=== PATIENT | female | born 1955 | race Caucasian/White ===

== ENCOUNTER → 2016-12-01 | Outpatient (CLI) | payer OTHER | LOC: OD 09:16 | PROVIDERS: ATTEND Physician Assistant | DX: R05 Cough (principal) | CPT/HCPCS: 71020 ==

== ENCOUNTER 2016-12-13 13:33 | Inpatient (IN) | payer OTHER, MEDICARE ==
[2016-12-13] MEDS ORDERED: ASPIRIN 81 MG TABLET, CHEWABLE PO ONE (13:39)
--- NOTE | 2016-12-13 13:41 | ER Document Report ---
ED Medical Screen (RME) - General Stated Complaint: CHEST PAIN Mode of Arrival: Wheelchair Information source: Patient Notes: Patient presents to emergency department with complaints of chest pain nausea and diaphoresis. Patient reports family history of cardiac disease. She will denies cardiac history herself. Reports approximately one hour ago she started having left-sided chest pain now it's a dull ache to the center of her chest. I have greeted and performed a rapid initial assessment of this patient. A comprehensive ED assessment and evaluation of the patient, analysis of test results and completion of the medical decision making process will be conducted by additional ED providers. TRAVEL OUTSIDE OF THE [place] IN LAST 30 DAYS: No - Related Data Allergies/Adverse Reactions: codeine [Codeine] Allergy (Verified 06/06/14 15:11) lower BP Past Medical History - Past Medical History Cardiac Medical History: Reports: Hx Hypercholesterolemia Denies: Hx Heart Attack, Hx Hypertension Pulmonary Medical History: Reports: Hx COPD Denies: Hx Asthma, Hx Tuberculosis Neurological Medical History: Denies: Hx Cerebrovascular Accident, Hx Seizures Endocrine Medical History: Reports: Hx Diabetes Mellitus Type 1 - borderline, Hx Diabetes Mellitus Type 2 GI Medical History: Denies: Hx Hepatitis, Hx Hiatal Hernia, Hx Ulcer Infectious Medical History: Denies: Hx Hepatitis Past Surgical History: Reports: Hx Abdominal Surgery - gastric bypass, Hx Appendectomy, Hx Cholecystectomy, Hx Hysterectomy, Hx Orthopedic Surgery - bilat knee; back; neck, Hx Tonsillectomy. Denies: Hx Mastectomy, Hx Open Heart Surgery, Hx Pacemaker - Immunizations Hx Diphtheria, Pertussis, Tetanus Vaccination: No
--- NOTE | 2016-12-13 14:10 | ER Document Report ---
ED Cardiac - General Mode of Arrival: Wheelchair Information source: Patient TRAVEL OUTSIDE OF THE [place] IN LAST 30 DAYS: No - HPI Patient complains to provider of: Chest pain Associated symptoms: Other - See above <EDMUND LEAHY - Last Filed: 12/13/16 14:03> <JAYE SHEPPARD - Last Filed: 12/13/16 15:23> - General Chief Complaint: Chest Pain > 30 Stated Complaint: CHEST PAIN Notes: Patient is a 61 year old female, with a past medical history including diabetes , who presents to the emergency department complaining of chest pain onset at 1200 today. 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 Patient reports the pain and nausea have subsided some but are still present. Patient reports this type of episode has happened before but without the pain and that they would go away without intervention. Patient states that her brother and father both of heart attacks at age 45 and 64 respectively. Patient reports she received a chemical stress test about 4 years ago with normal results. (EDMUND LEAHY) - Related Data Allergies/Adverse Reactions: aspirin Allergy (Verified 12/13/16 14:03) codeine [Codeine] Allergy (Verified 12/13/16 14:03) lower BP Past Medical History - General Information source: Patient - Social History Smoking Status: Former Smoker - 30 years Chew tobacco use (# tins/day): No Frequency of alcohol use: None Drug Abuse: None Family History: Reviewed & Not Pertinent, CAD, Other - Heart attacks Patient has suicidal ideation: No Patient has homicidal ideation: No - Past Medical History Cardiac Medical History: Reports: Hx Hypercholesterolemia Pulmonary Medical History: Reports: Hx COPD Endocrine Medical History: Reports: Hx Diabetes Mellitus Type 2 Past Surgical History: Reports: Hx Abdominal Surgery - gastric bypass, Hx Appendectomy, Hx Cholecystectomy, Hx Hysterectomy, Hx Orthopedic Surgery - bilat knee; back; neck, Hx Tonsillectomy - Immunizations Hx Diphtheria, Pertussis, Tetanus Vaccination: No Hx Pneumococcal Vaccination: 08/06/13 <EDMUND LEAHY - Last Filed: 12/13/16 14:03> Review of Systems - Review of Systems Constitutional: See HPI, Diaphoresis EENT: No symptoms reported Cardiovascular: See HPI, Chest pain Respiratory: No symptoms reported Gastrointestinal: See HPI, Nausea Genitourinary: No symptoms reported Female Genitourinary: No symptoms reported Musculoskeletal: No symptoms reported Skin: No symptoms reported Hematologic/Lymphatic: No symptoms reported Neurological/Psychological: No symptoms reported -: Yes All other systems reviewed and negative <EDMUND LEAHY - Last Filed: 12/13/16 14:03> Physical Exam - Vital signs Interpretation: Normal - General General appearance: Appears well, Alert - HEENT Head: Normocephalic, Atraumatic - Respiratory Respiratory status: No respiratory distress Chest status: Tender - Anterior chest wall tender to palpation, right side more than left Breath sounds: Rhonchi - mild, Other - Coarse breath sounds with cough Chest palpation: Normal - Cardiovascular Rhythm: Regular Heart sounds: Normal auscultation Murmur: No - Abdominal Inspection: Obese Distension: No distension Bowel sounds: Normal Tenderness: Nontender Organomegaly: No organomegaly - Back Back: Normal, Nontender - Extremities General upper extremity: Normal inspection General lower extremity: Normal inspection - Neurological Neuro grossly intact: Yes Cognition: Normal Orientation: AAOx4 [place] Coma Scale Eye Opening: Spontaneous Deborah Coma Scale Verbal: Oriented [place] Coma Scale Motor: Obeys Commands [place] Coma Scale Total: 15 Speech: Normal - Psychological Associated symptoms: Normal affect, Normal mood - Skin Skin Temperature: Warm Skin Moisture: Dry Skin Color: Normal <EDMUND LEAHY - Last Filed: 12/13/16 14:03> Course - Laboratory Result Diagrams: 12/13/16 14:18 12/13/16 14:18 - Diagnostic Test Radiology reviewed: Image reviewed, Reports reviewed - Chest x-ray does not show any acute process. - EKG Interpretation by Me EKG shows normal: Sinus rhythm, [place], Intervals, QRS Complexes, ST-T Waves Rate: Normal - 58 Rhythm: NSR - Consults Dr. Nagel Time consulted: 15:20 Consulted provider: will see as inpatient - Dr. Nagel requests IMCU admit, a CTA chest to be done, and consult Dr. Little. <JAYE SHEPPARD - Last Filed: 12/13/16 15:23> - Vital Signs Vital signs: Temp Pulse Resp BP Pulse Ox 17 143/89 H 98 12/13/16 14:01 12/13/16 14:01 12/13/16 14:01 (JAYE SHEPPARD) Discharge <EDMUND LEAHY - Last Filed: 12/13/16 14:03> - Discharge Admitting Provider: [facility] Admitted: I[facility] <JAYE SHEPPARD - Last Filed: 12/13/16 15:23> - Discharge Clinical Impression: Chest pain Qualifiers: Chest pain type: unspecified Qualified Code(s): R07.9 - Chest pain, unspecified Scribe Attestation: 12/13/16 15:23 I personally performed the services described in the documentation, reviewed and edited the documentation which was dictated to the scribe in my presence, and it accurately records my words and actions. (JAYE SHEPPARD) Scribe Documentation - Scribe Written by Ariel:: ariel Blair, 12/13/16, 1412 acting as scribe for :: Louisa <EDMUND LEAHY - Last Filed: 12/13/16 14:03>
[2016-12-13 14:28] LABS: ABSOLUTE EOSINOPHILS # (AUTO) 0.1 10^3/uL (0.0-0.6); ABSOLUTE LYMPHOCYTES (AUTO) 1.9 10^3/uL (0.5-4.7); ABSOLUTE MONOCYTES (AUTO) 0.4 10^3/uL (0.1-1.4); ABSOLUTE NEUT (AUTO) 3.9 10^3/uL (1.7-8.2); BASOPHILS % (AUTO) 0.6 % (0-2); EOSINOPHILS % (AUTO) 1.7 % (0-6); HEMATOCRIT 42.2 % (36.0-47.0); HEMOGLOBIN 14.1 g/dL (12.0-15.5); HGB HCT DIFFERENCE 0.1; MEAN CORPUSCULAR HEMOGLOBIN 30.8 pg (27.0-33.4); MEAN CORPUSCULAR HGB CONC 33.5 g/dL (32.0-36.0); MEAN CORPUSCULAR VOLUME 92 fl (80-97); MONOCYTES % (AUTO) 6.3 % (3-13); RED BLOOD COUNT 4.59 10^6/uL (3.72-5.28); RED CELL DISTRIBUTION WIDTH 13.3 % (11.5-14.0); SEGMENTED NEUTROPHILS % (AUTO) 61.4 % (42-78); WHITE BLOOD COUNT 6.4 10^3/uL (4.0-10.5)
[2016-12-13 14:52] LABS: ALANINE AMINOTRANSFERASE 39 U/L (9-52); ALBUMIN 4.2 g/dL (3.5-5.0); ALKALINE PHOSPHATASE 58 U/L (38-126); ANION GAP 10 (5-19); ASPARTATE AMINO TRANSFERASE 21 U/L (14-36); BILIRUBIN,TOTAL 0.5 mg/dL (0.2-1.3); BLOOD UREA NITROGEN 11 mg/dL (7-20); CALCIUM 9.6 mg/dL (8.4-10.2); CARBON DIOXIDE 25 mmol/L (22-30); CHLORIDE 106 mmol/L (98-107); CREATINE KINASE 38 U/L (30-135); CREATININE RESULT 0.73 mg/dL (0.52-1.25); GLUCOSE 78 mg/dL (75-110); POTASSIUM 4.3 mmol/L (3.6-5.0); SODIUM 140.8 mmol/L (137-145); TOTAL PROTEIN 6.4 g/dL (6.3-8.2)
[2016-12-13 15:04] LABS: CREATINE KINASE MB 0.28 ng/mL (<4.55)
[2016-12-13 15:06] LABS: TROPONIN I < 0.012 ng/mL
[2016-12-13 15:29] LABS: APPEARANCE,URINE CLEAR; BILIRUBIN,URINE NEGATIVE (NEGATIVE); GLUCOSE, URINE NEGATIVE (NEGATIVE); KETONES,URINE NEGATIVE (NEGATIVE); LEUKOCYTE ESTERASE,URINE NEGATIVE (NEGATIVE); NITRITE,URINE NEGATIVE (NEGATIVE); PROTEIN,URINE NEGATIVE (NEGATIVE); URINE SPECIFIC GRAVITY 1.012; UROBILINOGEN,URINE NEGATIVE mg/dL (<2.0)
[2016-12-13] MEDS ORDERED: IPRATROPIUM/ALBUTEROL 0.5-2.5 MG/3 ML AMPUL NEB PRN (15:56)
[2016-12-13] MEDS ORDERED: TRAZODONE HCL 50 MG TABLET PO PRN (15:59)
[2016-12-13] MEDS ORDERED: BENZONATATE 100 MG CAPSULE PO PRN (15:59)
[2016-12-13] MEDS ORDERED: INSULIN LISPRO 100 UNIT/ML 3 ML VIAL SUBCUT PRN (16:00)
[2016-12-13] MEDS ORDERED: GLUCAGON,HUMAN RECOMB 1 MG INJ IM PRN (16:00)
[2016-12-13] MEDS ORDERED: DEXTROSE 40% GEL 15 GM TUBE PO PRN ×2 (16:00)
[2016-12-13] MEDS ORDERED: DEXTROSE 50%-WATER 25 GM/50 ML DISP.SYRIN IV PRN ×2 (16:00)
[2016-12-13] MEDS: LANSOPRAZOLE 15 MG TAB.RAP.DR PO SCH (16:52)
[2016-12-13] MEDS: METFORMIN HCL 500 MG TABLET PO SCH (16:52)
[2016-12-13] MEDS: ACETAMINOPHEN 325 MG TABLET PO PRN (16:54)
--- NOTE | 2016-12-13 17:47 | PDOC H&P ---
History of Present Illness Admission Date/PCP: 12/13/16 15:56 MIKE LO MD Patient complains of: chest pain History of Present Illness: MARINA ROSARIO is a 61 year old female This is a 61-year-old female currently working in the [employer] and a complaint of the chest pain and feeling diaphoretic and that patient have a family history of early heart problems and came to the emergency department with initial workup is all negative including the CT angiograms all negative. Patient's currently denied any chest pain denied any shortness of the breath no nausea no vomiting and no fever. Patient's also significant history of the patient anxiety possible patient's may have a panic disorder to and the panic attack this morning. Will admit the patient and the hospital further acute coronary syndrome evaluations and to rule out other pathology and a cardiology consult Past Medical History Cardiac Medical History: Reports: Hyperlipidema Denies: Myocardial Infarction, Hypertension Pulmonary Medical History: Reports: Chronic Obstructive Pulmonary Disease (COPD) Denies: Asthma, Tuberculosis Neurological Medical History: Denies: Seizures Endocrine Medical History: Reports: Diabetes Mellitus Type 1 - borderline, Diabetes Mellitus Type 2 GI Medical History: Denies: Hepatitis, Hiatal Hernia Psychiatric Medical History: Reports: Depression, General Anxiety Disorder Hematology: Reports: Anemia Denies: Sickle Cell Disease Past Surgical History Past Surgical History: Reports: Appendectomy, Cholecystectomy, Hysterectomy, Orthopedic Surgery - bilat knee; back; neck, Tonsillectomy Denies: Amputation, Mastectomy, Pacemaker Social History Smoking Status: Former Smoker - 30 years Frequency of Alcohol Use: Rare Hx Recreational Drug Use: No Hx Prescription Drug Abuse: No Family History Family History: Reviewed & Not Pertinent, CAD, Other - Heart attacks Parental Family History Reviewed: Yes Children Family History Reviewed: Yes Sibling(s) Family History Reviewed.: Yes Medication/Allergy Home Medications: Simvastatin [Zocor 10 mg Tablet] 20 mg PO QHS 06/08/12 Tramadol HCl [Ultram 50 mg Tablet] 50 mg PO BID 06/08/12 Fluticasone/Salmeterol [Advair 250-50 Diskus 14 Dose/Diskus] 1 inh IH Q12H 08/03 Omeprazole 40 mg PO DAILY 08/03/13 Baclofen [Baclofen 20 Mg Tablet] 20 mg PO TID 12/13/16 Benzonatate 100 mg PO TID PRN 12/13/16 Buspirone HCl [Buspar 15 mg Tablet] 0.5 tab PO DAILY 12/13/16 Ergocalciferol (Vitamin D2) [Vitamin D2] 50,000 unit PO FR@1000 PRN 12/13/16 Famotidine 20 mg PO BID 12/13/16 Fluticasone Propionate [Flonase Allergy Relief] 9.9 ml NS DAILY 12/13/16 Ketoconazole 15 gm TP DAILY 12/13/16 Levocetirizine Dihydrochloride [Xyzal 5 mg Tablet] 5 mg PO DAILY 12/13/16 Metformin HCl 500 mg PO BID 12/13/16 Trazodone HCl 50 mg PO BID PRN 12/13/16 Allergies/Adverse Reactions: aspirin Allergy (Verified 12/13/16 14:03) codeine [Codeine] Allergy (Verified 12/13/16 14:03) lower BP Review of Systems Constitutional: ABSENT: chills, fever(s), headache(s), weight gain, weight loss Eyes: ABSENT: visual disturbances Ears: ABSENT: hearing changes Cardiovascular: PRESENT: chest pain. ABSENT: dyspnea on exertion, edema, orthropnea, palpitations Respiratory: ABSENT: cough, hemoptysis Gastrointestinal: ABSENT: abdominal pain, constipation, diarrhea, hematemesis, hematochezia, nausea, vomiting Genitourinary: ABSENT: dysuria, hematuria Musculoskeletal: ABSENT: joint swelling Integumentary: ABSENT: rash, wounds Neurological: ABSENT: abnormal gait, abnormal speech, confusion, dizziness, focal weakness, syncope Psychiatric: ABSENT: anxiety, depression, homidical ideation, suicidal ideation Endocrine: ABSENT: cold intolerance, heat intolerance, menstrual abnormalities, polydipsia, polyuria Hematologic/Lymphatic: ABSENT: easy bleeding, easy bruising, lymphadenopathy Physical Exam Vital Signs: Temp Pulse Resp BP Pulse Ox 17 143/89 H 98 12/13/16 14:01 12/13/16 14:01 12/13/16 14:01 General appearance: PRESENT: no acute distress, well-developed, well-nourished Head exam: PRESENT: atraumatic, normocephalic Eye exam: PRESENT: conjunctiva pink, EOMI, PERRLA. ABSENT: scleral icterus Ear exam: PRESENT: normal external ear exam Mouth exam: PRESENT: moist, tongue midline Neck exam: PRESENT: full ROM. ABSENT: carotid bruit, JVD, lymphadenopathy, thyromegaly Respiratory exam: PRESENT: clear to auscultation manny Cardiovascular exam: PRESENT: RRR. ABSENT: diastolic murmur, rubs, systolic murmur Pulses: PRESENT: normal dorsalis pedis pul, +2 pedal pulses bilateral Vascular exam: PRESENT: normal capillary refill GI/Abdominal exam: PRESENT: normal bowel sounds, soft. ABSENT: distended, guarding, mass, organolmegaly, rebound, tenderness Rectal exam: PRESENT: deferred Neurological exam: PRESENT: alert, awake, oriented to person, oriented to place , oriented to time, oriented to situation, CN II-XII grossly intact. ABSENT: motor sensory deficit Psychiatric exam: PRESENT: appropriate affect, normal mood. ABSENT: homicidal ideation, suicidal ideation Skin exam: PRESENT: dry, intact, warm. ABSENT: cyanosis, rash Results Impressions: Chest X-Ray 12/13/16 13:39 IMPRESSION: NO ACUTE RADIOGRAPHIC FINDING IN THE CHEST. Chest/Abdomen CTA 12/13/16 15:21 IMPRESSION: No evidence of pulmonary embolus or other acute abnormality. Assessment & Plan - Diagnosis (1) Chest pain Qualifiers: Chest pain type: unspecified Qualified Code(s): R07.9 - Chest pain, unspecified Is this a current diagnosis for this admission?: YesPlan: Patient's initial EKG and cardiac enzyme is negative patient's CT angiogram is also negative we will get the cardiology consult (2) Type 2 diabetes mellitus Qualifiers: Diabetes mellitus complication status: with unspecified complications Is this a current diagnosis for this admission?: YesPlan: From a sliding scale some currently hold the metformin (3) Hypertension Qualifiers: Hypertension type: essential hypertension Qualified Code(s): I10 - Essential (primary) hypertension Is this a current diagnosis for this admission?: YesPlan: Continues the current medications (4) Hyperlipemia Qualifiers: Hyperlipidemia type: unspecified Qualified Code(s): E78.5 - Hyperlipidemia, unspecified Is this a current diagnosis for this admission?: YesPlan: Continues current medications (5) Depression Qualifiers: Depression Type: major depressive disorder Is this a current diagnosis for this admission?: YesPlan: Patient's currently see a psychiatrist (6) Anxiety Is this a current diagnosis for this admission?: YesPlan: Possible panic attack - Time Time Spent: 30 to 50 Minutes Medications reviewed and adjusted accordingly: Yes Anticipated discharge: Home, Other Within: Other - Inpatient Certification Medical Necessity: Need Close Monitoring Due to Risk of Patient Decompensation Post Hospital Care: D/C Invertebrate Paleontologist Documentation - Plan Summary Plan Summary: Rule out acute coronary syndrome consult the cardiology and continues monitor the patient's
--- NOTE | 2016-12-13 17:55 | PDOC CONSULTATION ---
Consultation Consult Date: 12/13/16 Attending physician:: MIKE LO Consult reason:: Chest pain History of Present Illness Admission Date/PCP: 12/13/16 15:56 MIKE LO MD Patient complains of: Chest pain History of Present Illness: This is a 61-year-old female currently working in the [employer] and a complaint of the chest pain and feeling diaphoretic and that patient have a strong family history of premature CAD and came to the emergency department with initial workup is all negative including the CT angiograms all negative. Patient's currently denied any chest pain denied any shortness of the breath no nausea no vomiting and no fever. Patient's also significant history of the patient anxiety possible patient's may have a panic disorder to and the panic attack this morning. Patient claims a stress test performed about 4 or 5 years ago which were negative. Patient also describes problems with insomnia, daytime fatigue and sleepiness. Patient did have a sleep study about 8 years ago which was negative. Patient currently suffers from insomnia. Past Medical History Cardiac Medical History: Reports: Hyperlipidema Denies: Myocardial Infarction, Hypertension Pulmonary Medical History: Reports: Chronic Obstructive Pulmonary Disease (COPD) Denies: Asthma, Tuberculosis Neurological Medical History: Denies: Seizures Endocrine Medical History: Reports: Diabetes Mellitus Type 1 - borderline, Diabetes Mellitus Type 2 GI Medical History: Denies: Hepatitis, Hiatal Hernia Psychiatric Medical History: Reports: Depression, General Anxiety Disorder Hematology: Reports: Anemia Denies: Sickle Cell Disease Past Surgical History Past Surgical History: Reports: Appendectomy, Cholecystectomy, Hysterectomy, Orthopedic Surgery - bilat knee; back; neck, Tonsillectomy Denies: Amputation, Mastectomy, Pacemaker Social History Information Source: Patient Smoking Status: Former Smoker - 30 years Frequency of Alcohol Use: Rare Hx Recreational Drug Use: No Hx Prescription Drug Abuse: No - Advance Directive Resuscitation Status: Full Code Surrogate healthcare decision maker:: Patient's Family History Family History: Reviewed & Not Pertinent, CAD, Other - Heart attacks Parental Family History Reviewed: Yes Children Family History Reviewed: Yes Sibling(s) Family History Reviewed.: Yes - Positive for family history of premature CAD Medication/Allergy Home Medications: Simvastatin [Zocor 10 mg Tablet] 20 mg PO QHS 06/08/12 Tramadol HCl [Ultram 50 mg Tablet] 50 mg PO BID 06/08/12 Fluticasone/Salmeterol [Advair 250-50 Diskus 14 Dose/Diskus] 1 inh IH Q12H 08/03 Omeprazole 40 mg PO DAILY 08/03/13 Baclofen [Baclofen 20 Mg Tablet] 20 mg PO TID 12/13/16 Benzonatate 100 mg PO TID PRN 12/13/16 Buspirone HCl [Buspar 15 mg Tablet] 0.5 tab PO DAILY 12/13/16 Ergocalciferol (Vitamin D2) [Vitamin D2] 50,000 unit PO FR@1000 PRN 12/13/16 Famotidine 20 mg PO BID 12/13/16 Fluticasone Propionate [Flonase Allergy Relief] 9.9 ml NS DAILY 12/13/16 Ketoconazole 15 gm TP DAILY 12/13/16 Levocetirizine Dihydrochloride [Xyzal 5 mg Tablet] 5 mg PO DAILY 12/13/16 Metformin HCl 500 mg PO BID 12/13/16 Trazodone HCl 50 mg PO BID PRN 12/13/16 Allergies/Adverse Reactions: aspirin Allergy (Verified 12/13/16 14:03) codeine [Codeine] Allergy (Verified 12/13/16 14:03) lower BP Review of Systems Review of Systems: Please see history of present illness and past medical history as wall. Constitutional: No fever or chills reported. Head : No recent chronic headaches, recent head injury. Eyes: No recent eye pain, diplopia, redness, discharge, acute visual changes. Ears: No recent chronic ear pain, acute hearing loss, ear discharge. Oral cavity: No recent ulcerations, bleeding, oral cavity discomfort. Neck: No recent acute neck pain reported. Hematologic: No recent easy bruising or bleeding or hematologic malignancy reported. Lymphatic: No recent lymphatic malignancy, chronic lymphadenopathy reported yet Cardiovascular system review: See history of present illness. Respiratory system review: No recent chronic cough, hemoptysis, blood clots in the lungs reported. Mild Shortness of breath on exertion Gastrointestinal system review: Negative for any recent acute or chronic abdominal pain, hematemesis, melena, recent change in bowel habits. Genitourinary system review: No recent acute or chronic hematuria, flank pain, UTI etc. reported. Skin system review: Negative for any recent abnormal bruising, no rash, no pruritus reported. Neurologic: No prior history of strokes, mini strokes, seizure disorder. Psychologic: No history of major psychosis or major depression reported. Patient has history of minor depression, anxiety disorder. Musculoskeletal: Minor aches and pains reported. No acute joint swelling reported. Endocrine: No recent polyuria, polydipsia, recent heat or cold intolerance. Physical Exam Vital Signs: Temp Pulse Resp BP Pulse Ox 17 143/89 H 98 12/13/16 14:01 12/13/16 14:01 12/13/16 14:01 Exam: GENERAL: well-nourished and in no acute distress. Alert and oriented x3 HEAD: Atraumatic, normocephalic. EYES: Pupils equal round and reactive to light, extraocular movements intact, sclera anicteric, conjunctiva are normal. ENT: TMs normal, nares patent, oropharynx clear without exudates. Moist mucous membranes. No oral ulcerations or bleeding gums noted NECK: supple without lymphadenopathy. Trachea is central. No cervical or axillary lymphadenopathy noted. Carotids are 2+, JVD WNL LUNGS: Respiration seems nonlabored, no significant accessory muscle action noted. Breath sounds clear to auscultation bilaterally and equal noted. No wheezes rales or rhonchi noted. No significant dullness noted on percussion. CHEST: Palpation of the chest wall shows mild bilateral chest wall tenderness. No other significant abnormalities noted. 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 ABDOMEN: Soft, no significant tenderness appreciated, normoactive bowel sounds. No guarding, no rebound. No rigidity noted . No masses appreciated. EXTREMITIES: Pedal pulses are 1-2+, no calf tenderness noted. No clubbing or cyanosis.trace to 1+ pedal edema noted NEUROLOGICAL: Focused neurological exam showed no significant neurologic deficit. Normal speech, no focal weakness appreciated. PSYCH: Normal mood, normal affect. Judgment and insight within normal limits. SKIN: No significant ecchymosis, rash, ulcerations or signs of pruritus noted. MUSCULOSKELETAL EXAM: No significant joint swelling noted. Results EKG Comments: Sinus rhythm, no acute ST-T wave changes noted Impressions: Chest X-Ray 12/13/16 13:39 IMPRESSION: NO ACUTE RADIOGRAPHIC FINDING IN THE CHEST. Chest/Abdomen CTA 12/13/16 15:21 IMPRESSION: No evidence of pulmonary embolus or other acute abnormality. Assessment & Plan - Diagnosis (1) Chest pain Qualifiers: Chest pain type: unspecified Qualified Code(s): R07.9 - Chest pain, unspecified Is this a current diagnosis for this admission?: Yes (2) Hyperlipemia Qualifiers: Hyperlipidemia type: unspecified Qualified Code(s): E78.5 - Hyperlipidemia, unspecified Is this a current diagnosis for this admission?: Yes (3) Hypertension Qualifiers: Hypertension type: essential hypertension Qualified Code(s): I10 - Essential (primary) hypertension Is this a current diagnosis for this admission?: Yes (4) Type 2 diabetes mellitus Qualifiers: Diabetes mellitus complication status: with unspecified complications Is this a current diagnosis for this admission?: Yes (5) Insomnia Is this a current diagnosis for this admission?: Yes - Notes Notes: Chest pain: Patient has some typical and atypical features of chest pain. Cardiac enzymes so far has been negative. Electrocardiogram did not show any definitive ST segment changes. Multiple differential diagnoses exist in this patient. In descending order of probability this includes underlying coronary artery disease, gastroesophageal reflux, musculoskeletal pain, referred pain from elsewhere, anxiety panic disorder etc.Patient has significant cardiac risk factors, which indicates that there is a intermediate probability of chest discomfort coming from underlying CAD. Feel that it would need to be evaluated further. Discussed evaluation to assess this. In this regard risk benefits of nuclear stress test and other alternative processes were discussed in detail. The patient prefers to undergo nuclear stress test. The small risk of radiation , myocardial infarction, , cardiac arrhythmias, respiratory distress etc. were discussed. Patient understood the risks and gave informed consent. The stress test can be performed as an outpatient if patient remains stable with negative enzymes. For risk stratification, a 2-D echocardiogram is also being recommended but again can be performed as an outpatient. Hyperlipidemia: Patient noted to have dyslipidemia. LDL goal is less than 70. Recommend statin therapy at least intermediate or high dose, of high potency status. Periodic lipid panel and liver panel is indicated. Patient to report any significant muscle discomfort or other side effects. Diabetes: Recommend good control of blood sugar. However should avoid any hypoglycemia. Patient being expertly managed by primary care MRadha Hypertension: Reasonably well controlled. Blood pressure goal in this patient is 135/85 or less. This was discussed with the patient. Currently blood pressure under reasonable control. Better medication for this patient are AMANDA inhibitor/ARB/beta riya etc. discussed side effects of uncontrolled hypertension and also severe hypotension. Insomnia: Possibly related to underlying depression but patient could have sleep apnea associated with insomnia. Discussed that it may be worthwhile to consider repeating the sleep study. - Time Time Spent: 30 to 50 Minutes - CODE STATUS was discussed, patient remains full code. Surrogate decision-maker patient's . Multiple medical problems were addressed.More than 50% of the time spent coordinating care, discussing management plans with involved caregivers. Management plans discussed with involved personnels. Medical decision making was of moderate complexity.
[2016-12-13] MEDS: TRAMADOL HCL 50 MG TABLET PO SCH (18:17)
[2016-12-13] MEDS: BACLOFEN 20 MG TABLET PO SCH (18:19)
[2016-12-13] MEDS: FAMOTIDINE 20 MG TABLET PO SCH (18:19)
--- NOTE | 2016-12-13 19:30 | EKG REPORT ---
SEVERITY:- NORMAL ECG - SINUS RHYTHM : Confirmed by: Samreen Williamson MD 13-Dec-2016 19:29:59
[2016-12-13 21:36] LABS: CREATINE KINASE MB < 0.22 ng/mL (<4.55); TROPONIN I < 0.012 ng/mL
[2016-12-13] MEDS: FLUTICASONE/SALMETEROL DISKUS 250-50 MCG/DOSE IH SCH (21:38)
[2016-12-13] MEDS ORDERED: SIMVASTATIN 10 MG TABLET PO SCH (22:00)
[2016-12-14 02:43] LABS: ABSOLUTE EOSINOPHILS # (AUTO) 0.1 10^3/uL (0.0-0.6); ABSOLUTE LYMPHOCYTES (AUTO) 1.8 10^3/uL (0.5-4.7); ABSOLUTE MONOCYTES (AUTO) 0.4 10^3/uL (0.1-1.4); ABSOLUTE NEUT (AUTO) 3.7 10^3/uL (1.7-8.2); BASOPHILS % (AUTO) 0.7 % (0-2); EOSINOPHILS % (AUTO) 2.4 % (0-6); HEMATOCRIT 37.8 % (36.0-47.0); HEMOGLOBIN 12.8 g/dL (12.0-15.5); HGB HCT DIFFERENCE 0.6; LYMPHOCYTES % (AUTO) 29.6 % (13-45); MEAN CORPUSCULAR HEMOGLOBIN 30.8 pg (27.0-33.4); MEAN CORPUSCULAR HGB CONC 33.9 g/dL (32.0-36.0); MEAN CORPUSCULAR VOLUME 91 fl (80-97); MONOCYTES % (AUTO) 6.6 % (3-13); RED BLOOD COUNT 4.16 10^6/uL (3.72-5.28); SEGMENTED NEUTROPHILS % (AUTO) 60.7 % (42-78)
[2016-12-14 03:40] LABS: ALANINE AMINOTRANSFERASE 34 U/L (9-52); ALBUMIN 3.5 g/dL (3.5-5.0); ALKALINE PHOSPHATASE 50 U/L (38-126); ANION GAP 9 (5-19); ASPARTATE AMINO TRANSFERASE 17 U/L (14-36); BILIRUBIN,TOTAL 0.2 mg/dL (0.2-1.3); BLOOD UREA NITROGEN 12 mg/dL (7-20); CALCIUM 9.2 mg/dL (8.4-10.2); CARBON DIOXIDE 23 mmol/L (22-30); CHLORIDE 107 mmol/L (98-107); CREATINE KINASE 32 U/L (30-135); CREATININE RESULT 0.81 mg/dL (0.52-1.25); GLUCOSE 97 mg/dL (75-110); POTASSIUM 4.2 mmol/L (3.6-5.0); SODIUM 138.9 mmol/L (137-145); TOTAL PROTEIN 5.4 g/dL (6.3-8.2)
[2016-12-14 03:58] LABS: CREATINE KINASE MB < 0.22 ng/mL (<4.55); TROPONIN I < 0.012 ng/mL
[2016-12-14] MEDS: ACETAMINOPHEN 325 MG TABLET PO PRN (04:34)
[2016-12-14] MEDS: LANSOPRAZOLE 15 MG TAB.RAP.DR PO SCH (06:26)
[2016-12-14] MEDS ORDERED: ENOXAPARIN SODIUM INJ 40 MG/0.4 ML DISP.SYRIN SUBCUT SCH (08:00)
[2016-12-14] MEDS: METFORMIN HCL 500 MG TABLET PO SCH (08:47)
[2016-12-14 09:47] LABS: CREATINE KINASE MB < 0.22 ng/mL (<4.55); TROPONIN I < 0.012 ng/mL
[2016-12-14] MEDS ORDERED: FLUTICASONE NASAL SPRAY 50 MCG/SPRY 120 SPRAY/16 GM NASL SCH (10:00)
[2016-12-14] MEDS ORDERED: KETOCONAZOLE TP SCH (10:00)
[2016-12-14] MEDS ORDERED: CETIRIZINE 5 MG TABLET PO SCH (10:00)
[2016-12-14] MEDS ORDERED: BUSPIRONE HCL PO SCH (10:00)
[2016-12-14] MEDS: TRAMADOL HCL 50 MG TABLET PO SCH (10:08)
[2016-12-14] MEDS: FAMOTIDINE 20 MG TABLET PO SCH (10:08)
[2016-12-14] MEDS: FLUTICASONE/SALMETEROL DISKUS 250-50 MCG/DOSE IH SCH (10:09)
[2016-12-14] MEDS: BACLOFEN 20 MG TABLET PO SCH (10:09)
--- NOTE | 2016-12-14 11:57 | PDOC DISCHARGE SUMMARY ---
General - Admit/Disc Date/PCP Admission Date/Primary Care Provider: 12/13/16 15:56 MIKE LO MD Discharge Date: 12/14/16 - Discharge Diagnosis (1) Chest pain Is this a current diagnosis for this admission?: YesSummary: ALT cardiac workup is negative and patient scheduled for outpatient stress test per cardiology. Most likely a chest wall pain (2) Type 2 diabetes mellitus Is this a current diagnosis for this admission?: YesSummary: Continues the current medication (3) Hypertension Is this a current diagnosis for this admission?: YesSummary: Stable with the current medication (4) Hyperlipemia Is this a current diagnosis for this admission?: YesSummary: Stable with the current medication (5) Depression Is this a current diagnosis for this admission?: YesSummary: Follow with the psychiatrist (6) Anxiety Is this a current diagnosis for this admission?: YesSummary: Stable - Additional Information Resuscitation Status: Full Code Discharge Diet: Cardiac Discharge Activity: Activity As Tolerated Home Medications: Simvastatin [Zocor 10 mg Tablet] 20 mg PO QHS 06/08/12 Tramadol HCl [Ultram 50 mg Tablet] 50 mg PO BID 06/08/12 Fluticasone/Salmeterol [Advair 250-50 Diskus 14 Dose/Diskus] 1 inh IH Q12H 08/03 Omeprazole 40 mg PO DAILY 08/03/13 Baclofen [Baclofen 20 mg Tablet] 20 mg PO TID 12/13/16 Benzonatate 100 mg PO TID PRN 12/13/16 Buspirone HCl [Buspar 15 mg Tablet] 0.5 tab PO DAILY 12/13/16 Ergocalciferol (Vitamin D2) [Vitamin D2] 50,000 unit PO FR@1000 PRN 12/13/16 Famotidine 20 mg PO BID 12/13/16 Fluticasone Propionate [Flonase Allergy Relief] 9.9 ml NS DAILY 12/13/16 Ketoconazole 15 gm TP DAILY 12/13/16 Levocetirizine Dihydrochloride [Xyzal 5 mg Tablet] 5 mg PO DAILY 12/13/16 Metformin HCl 500 mg PO BID 12/13/16 Trazodone HCl 50 mg PO BID PRN 12/13/16 History of Present Illness History of Present Illness: MARINA ROSARIO is a 61 year old female This is a 61-year-old female currently working in the [employer] [facility] and a complaint of the chest pain and feeling diaphoretic and that patient have a family history of early heart problems and came to the emergency department with initial workup is all negative including the CT angiograms all negative. Patient's currently denied any chest pain denied any shortness of the breath no nausea no vomiting and no fever. Patient's also significant history of the patient anxiety possible patient's may have a panic disorder to and the panic attack this morning. Will admit the patient and the hospital further acute coronary syndrome evaluations and to rule out other pathology and a cardiology consult Hospital Course Hospital Course: Patient is doing well patient's CT angiogram was negative and all blood work neg. Patient seen by Dr. Dee and suggest the patient's conditioners home and follow outpatients for the stress test. Patient's denied any chest pain patient 's by mouth intake is good and patient's move on the hallway without any problem and the patient's discharge home with the stable condition Physical Exam Vital Signs: Temp Pulse Resp BP Pulse Ox 97.7 F 57 L 16 127/66 H 99 12/14/16 07:55 12/14/16 07:55 12/14/16 07:55 12/14/16 07:55 12/14/16 07:55 Intake & Output 12/13/16 12/14/16 12/15/16 06:59 06:59 06:59 Intake Total 546 Balance 546 Weight 103.4 kg General appearance: PRESENT: no acute distress, well-developed, well-nourished Head exam: PRESENT: atraumatic, normocephalic Eye exam: PRESENT: conjunctiva pink, EOMI, PERRLA. ABSENT: scleral icterus Ear exam: PRESENT: normal external ear exam Mouth exam: PRESENT: moist, tongue midline Neck exam: PRESENT: full ROM. ABSENT: carotid bruit, JVD, lymphadenopathy, thyromegaly Respiratory exam: PRESENT: clear to auscultation manny Cardiovascular exam: PRESENT: RRR. ABSENT: diastolic murmur, rubs, systolic murmur Pulses: PRESENT: normal dorsalis pedis pul, +2 pedal pulses bilateral Vascular exam: PRESENT: normal capillary refill GI/Abdominal exam: PRESENT: normal bowel sounds, soft. ABSENT: distended, guarding, mass, organolmegaly, rebound, tenderness Rectal exam: PRESENT: deferred Neurological exam: PRESENT: alert, awake, oriented to person, oriented to place , oriented to time, oriented to situation, CN II-XII grossly intact. ABSENT: motor sensory deficit Psychiatric exam: PRESENT: appropriate affect, normal mood. ABSENT: homicidal ideation, suicidal ideation Skin exam: PRESENT: dry, intact, warm. ABSENT: cyanosis, rash Results Laboratory Results: 12/14/16 02:36 12/14/16 02:36 12/14/16 12/14/16 02:36 02:36 WBC 6.0 RBC 4.16 Hgb 12.8 Hct 37.8 MCV 91 MCH 30.8 MCHC 33.9 RDW 13.0 Plt Count 154 Seg Neutrophils % 60.7 Lymphocytes % 29.6 Monocytes % 6.6 Eosinophils % 2.4 Basophils % 0.7 Absolute Neutrophils 3.7 Absolute Lymphocytes 1.8 Absolute Monocytes 0.4 Absolute Eosinophils 0.1 Absolute Basophils 0.0 Sodium 138.9 Potassium 4.2 Chloride 107 Carbon Dioxide 23 Anion Gap 9 BUN 12 Creatinine 0.81 Est GFR ( Amer) > 60 Est GFR (Non-Af Amer) > 60 Glucose 97 Calcium 9.2 Total Bilirubin 0.2 AST 17 ALT 34 Alkaline Phosphatase 50 Total Protein 5.4 L Albumin 3.5 12/13/16 12/13/16 12/14/16 20:44 20:44 02:36 Creatine Kinase 35 CK-MB (CK-2) < 0.22 < 0.22 Troponin I < 0.012 < 0.012 12/14/16 12/14/16 12/14/16 02:36 08:21 08:21 Creatine Kinase 32 31 CK-MB (CK-2) < 0.22 Troponin I < 0.012 Impressions: Chest X-Ray 12/13/16 13:39 IMPRESSION: NO ACUTE RADIOGRAPHIC FINDING IN THE CHEST. Chest/Abdomen CTA 12/13/16 15:21 IMPRESSION: No evidence of pulmonary embolus or other acute abnormality. Plan Time Spent: Less than 30 Minutes - Discharge home with the stable condition follow out patient's cardiology for the stress test and echocardiogram and follow in my office in one week and continues on current medications. The patient have any further chest pain episode called back to the M.D. or come to the ER
[2016-12-14 13:52] VITALS: BP 129/68
--- NOTE | 2016-12-14 15:41 | PDOC PROGRESS REPORT ---
Subjective Progress Note for:: 12/14/16 Subjective:: Patient seems to be doing better with gradual improvement. Pt is denying any chest arm or neck discomfort. Patient denying any PND, orthopnea. Patient denied any sustained palpitations, dizziness, syncope, near syncope. Patient denying any fever chills. Patient denying any other significant discomfort. Patient is maintaining sinus rhythm. Review of systems: Rest review of systems negative. Medications: Medications have been reviewed. Physical Exam Vital Signs: Temp Pulse Resp BP Pulse Ox 98.1 F 62 16 129/68 H 97 12/14/16 13:48 12/14/16 13:48 12/14/16 13:48 12/14/16 13:48 12/14/16 13:48 Intake & Output 12/13/16 12/14/16 12/15/16 06:59 06:59 06:59 Intake Total 546 Balance 546 Weight 103.4 kg Exam: GENERAL: well-nourished and in no acute distress. Alert and oriented x3 HEAD: Atraumatic, normocephalic. EYES: Pupils equal round and reactive to light, extraocular movements intact, sclera anicteric, conjunctiva are normal. ENT: TMs normal, nares patent, oropharynx clear without exudates. Moist mucous membranes. No oral ulcerations or bleeding gums noted NECK: supple without lymphadenopathy. Trachea is central. No cervical or axillary lymphadenopathy noted. Carotids are 2+, JVD WNL LUNGS: Respiration seems nonlabored, no significant accessory muscle action noted. Breath sounds clear to auscultation bilaterally and equal noted. No wheezes rales or rhonchi noted. No significant dullness noted on percussion. CHEST: Palpation of the chest wall shows no significant chest wall tenderness. No other significant abnormalities noted. 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 ABDOMEN: Soft, no significant tenderness appreciated, normoactive bowel sounds. No guarding, no rebound. No rigidity noted . No masses appreciated. EXTREMITIES: Pedal pulses are 1-2+, no calf tenderness noted. No clubbing or cyanosis.trace to 1+ pedal edema noted NEUROLOGICAL: Focused neurological exam showed no significant neurologic deficit. Normal speech, no focal weakness appreciated. PSYCH: Normal mood, normal affect. Judgment and insight within normal limits. SKIN: No significant ecchymosis, rash, ulcerations or signs of pruritus noted. MUSCULOSKELETAL EXAM: No significant joint swelling noted. Results Laboratory Results: 12/14/16 02:36 12/14/16 02:36 12/14/16 12/14/16 02:36 02:36 WBC 6.0 RBC 4.16 Hgb 12.8 Hct 37.8 MCV 91 MCH 30.8 MCHC 33.9 RDW 13.0 Plt Count 154 Seg Neutrophils % 60.7 Lymphocytes % 29.6 Monocytes % 6.6 Eosinophils % 2.4 Basophils % 0.7 Absolute Neutrophils 3.7 Absolute Lymphocytes 1.8 Absolute Monocytes 0.4 Absolute Eosinophils 0.1 Absolute Basophils 0.0 Sodium 138.9 Potassium 4.2 Chloride 107 Carbon Dioxide 23 Anion Gap 9 BUN 12 Creatinine 0.81 Est GFR ( Amer) > 60 Est GFR (Non-Af Amer) > 60 Glucose 97 Calcium 9.2 Total Bilirubin 0.2 AST 17 ALT 34 Alkaline Phosphatase 50 Total Protein 5.4 L Albumin 3.5 12/13/16 12/13/16 12/14/16 20:44 20:44 02:36 Creatine Kinase 35 CK-MB (CK-2) < 0.22 < 0.22 Troponin I < 0.012 < 0.012 12/14/16 12/14/16 12/14/16 02:36 08:21 08:21 Creatine Kinase 32 31 CK-MB (CK-2) < 0.22 Troponin I < 0.012 Impressions: Chest X-Ray 12/13/16 13:39 IMPRESSION: NO ACUTE RADIOGRAPHIC FINDING IN THE CHEST. Chest/Abdomen CTA 12/13/16 15:21 IMPRESSION: No evidence of pulmonary embolus or other acute abnormality. Assessment & Plan - Diagnosis (1) Chest pain Qualifiers: Chest pain type: unspecified Qualified Code(s): R07.9 - Chest pain, unspecified Is this a current diagnosis for this admission?: Yes (2) Hyperlipemia Qualifiers: Hyperlipidemia type: unspecified Qualified Code(s): E78.5 - Hyperlipidemia, unspecified Is this a current diagnosis for this admission?: Yes (3) Hypertension Qualifiers: Hypertension type: essential hypertension Qualified Code(s): I10 - Essential (primary) hypertension Is this a current diagnosis for this admission?: Yes (4) Type 2 diabetes mellitus Qualifiers: Diabetes mellitus complication status: with unspecified complications Is this a current diagnosis for this admission?: Yes (5) Insomnia Is this a current diagnosis for this admission?: Yes - Notes Notes: Chest pain: Patient has some typical and atypical features of chest pain. Cardiac enzymes so far has been negative. Electrocardiogram did not show any definitive ST segment changes. Multiple differential diagnoses exist in this patient. In descending order of probability this includes underlying coronary artery disease, gastroesophageal reflux, musculoskeletal pain, referred pain from elsewhere, anxiety panic disorder etc.Patient has significant cardiac risk factors, which indicates that there is a intermediate probability of chest discomfort coming from underlying CAD. Feel that it would need to be evaluated further. Discussed evaluation to assess this. In this regard risk benefits of nuclear stress test and other alternative processes were discussed in detail. The patient prefers to undergo nuclear stress test. The small risk of radiation , myocardial infarction, , cardiac arrhythmias, respiratory distress etc. were discussed. Patient understood the risks and gave informed consent. This will be scheduled as an outpatient. For risk stratification, a 2-D echocardiogram is also being recommended but again can be performed as an outpatient. Hyperlipidemia: Patient noted to have dyslipidemia. LDL goal is less than 70. Recommend statin therapy at least intermediate or high dose, of high potency status. Periodic lipid panel and liver panel is indicated. Patient to report any significant muscle discomfort or other side effects. Diabetes: Recommend good control of blood sugar. However should avoid any hypoglycemia. Patient being expertly managed by primary care M.D. Hypertension: Reasonably well controlled. Blood pressure goal in this patient is 135/85 or less. This was discussed with the patient. Currently blood pressure under reasonable control. Better medication for this patient are AMANDA inhibitor/ARB/beta riya etc. discussed side effects of uncontrolled hypertension and also severe hypotension. Insomnia: Possibly related to underlying depression but patient could have sleep apnea associated with insomnia. Discussed that it may be worthwhile to consider repeating the sleep study. - Time Time with patient: 15-25 minutes - CODE STATUS was discussed, patient remains full code. Surrogate decision-maker unchanged. Multiple medical problems were addressed.More than 50% of the time spent coordinating care, discussing management plans with involved caregivers. Management plans discussed with involved personnels. Medical decision making was of moderate complexity.
== END 2016-12-14 14:10 | disposition home or self-care (01) | DRG 313 ==
LOC: ER 13:33 → UNDOADMIN 15:43 → EH 15:43 → 4N 19:30
PROVIDERS: ADMIT Family Medicine; ATTEND Family Medicine
DX: R07.9 Chest pain, unspecified (principal); E78.5 Hyperlipidemia, unspecified; Z82.49 Family history of ischemic heart disease and other diseases of the circulatory system; J44.9 Chronic obstructive pulmonary disease, unspecified; G47.00 Insomnia, unspecified; I10 Essential (primary) hypertension; E11.9 Type 2 diabetes mellitus without complications; F41.1 Generalized anxiety disorder; F32.9 Major depressive disorder, single episode, unspecified; Z90.49 Acquired absence of other specified parts of digestive tract; Z90.710 Acquired absence of both cervix and uterus; Z87.891 Personal history of nicotine dependence; Z88.6 Allergy status to analgesic agent; Z79.899 Other long term (current) drug therapy; Z79.84 Long term (current) use of oral hypoglycemic drugs
CPT/HCPCS: 36415; 71010; 71275; 80053; 81001; 82550; 82553; 82962; 84484; 85025; 93005; 93010; 99285; J1650; J3490

== ENCOUNTER → 2017-04-17 | Outpatient (CLI) | payer OTHER, MEDICARE ==
--- NOTE | 2017-04-17 16:51 | WOMENS IMAGING REPORT ---
EXAM DESCRIPTION: BILAT SCREENING MAMMO W/CAD COMPLETED DATE/TIME: 04/17/2017 8:25 am REASON FOR STUDY: Z12.31, ROUTINE SCREENING MAMMO Z12.31 ENCNTR SCREEN MAMMOGRAM FOR MALIGNANT NEOP LASM OF CARINE COMPARISON: Multiple since 2009 TECHNIQUE: Standard craniocaudal and mediolateral oblique views of each breast recorded using digita l acquisition. LIMITATIONS: None. FINDINGS: Findings present which are benign by mammographic criteria. No suspicious masses, calcifi cations or architectural distortion. Pertinent benign findings: Left breast stereotactic clip far upper outer quadrant Read with the assistance of CAD. .[facility] - R2 Cenova Version 1.3 .[facility] Imaging - R2 Cenova Version 1.3 .[facility] Imaging - R2 Cenova Version 2.4 .[facility] R2 Cenova Version 2.4 .[facility] - R2 Fuse Cutter Version 9.2 Benign mammographic findings may include one or more of the following: Smooth masses, popcorn/rim/co arse calcifications, asymmetries, post-procedure changes, and lesions with long-standing stability. IMPRESSION: BENIGN MAMMOGRAPHIC FINDINGS. BIRADS 2 BREAST DENSITY: b. There are scattered areas of fibroglandular density. BIRAD: 2 BENIGN FINDING(S) RECOMMENDATION: ROUTINE SCREENING Please consider bilateral screening tomosynthesis in March 2018 COMMENT: The patient has been notified of the results by letter per [place] requirements. Additional no tification policies are in place for contacting patient with suspicious or incomplete findings. Quality ID #[id number]: The [employer] recommends an annual screening mammogram for women aged 40 years or over. This facility utilizes a reminder system to ensure that all patients receive reminder letters, and/or direct phone calls for appointments. This includes reminders for routine scr eening mammograms, diagnostic mammograms, or other Breast Imaging Interventions when appropriate. Th is patient will be placed in the appropriate reminder system. The [employer] (ACR) has developed recommendations for screening MRI of the breast s in certain patient populations, to be used in conjunction with mammography. Breast MRI surveillanc e may be appropriate for women with more than 20% lifetime risk of developing breast cancer as deter mined by genetic testing, significant family history of the disease, or history of mantle radiation f or Hodgkins Disease. ACR Practice Guidelines 2008. TECHNICAL DOCUMENTATION: FINDING NUMBER: (1) ASSESSMENT: (1) JOB ID: [id number] [employer]- All Rights Reserved
== END ==
LOC: RAD 08:57
PROVIDERS: ATTEND Physician Assistant
DX: Z12.31 Encounter for screening mammogram for malignant neoplasm of breast (principal)
CPT/HCPCS: 77067; G0202

== ENCOUNTER → 2017-05-13 | Outpatient (CLI) | payer MEDICARE, OTHER ==
--- NOTE | 2017-05-13 10:17 | RADIOLOGY REPORT (SQ) ---
EXAM DESCRIPTION: CT CHEST WITHOUT COMPLETED DATE/TIME: 05/13/2017 8:19 am REASON FOR STUDY: PULMONARY NODULES R91.8 OTHER NONSPECIFIC ABNORMAL FINDING OF LUNG FIELD COMPARISON: 12/13/2016 TECHNIQUE: CT scan performed of the chest without intravenous contrast. Images reviewed with lung, soft tissue and bone windows. Reconstructed coronal and sagittal MPR images reviewed. All images st ored on PACS. All CT scanners at this facility use dose modulation, iterative reconstruction, and/or weight based d osing when appropriate to reduce radiation dose to as low as reasonably achievable (ALARA). [facility]: Dose Right [facility]: CareDose [facility]: Dose Right [facility]: Teradose 4D [facility]: Smart [employer] RADIATION DOSE: Up-to-date CT equipment and radiation dose reduction techniques were employed. CTDIv ol: 12.8 mGy. DLP: 486 mGy-cm. mGy. LIMITATIONS: No technical limitations. FINDINGS: LUNGS AND PLEURA: Stable calcified granuloma in the right lung right upper lobe. Stable 2 .7 mm nodule. Mid left lung possibly calcified. No opacities or effusions. HILAR AND MEDIASTINAL STRUCTURES: Calcified hilar nodes. HEART AND VASCULAR STRUCTURES: No aneurysm. No pericardial effusion. UPPER ABDOMEN: Prior gastric surgery. Calcified granulomata in the spleen. THYROID AND OTHER SOFT TISSUES: No masses. No adenopathy. BONES: No significant finding. HARDWARE: None in the chest. OTHER: No other significant findings. IMPRESSION: Healed granulomatous disease. Stable pulmonary nodules which appear benign. TECHNICAL DOCUMENTATION: JOB ID: [id number] Quality ID # [id number]: Final reports with documentation of one or more dose reduction techniques (e.g., Au tomated exposure control, adjustment of the mA and/or kV according to patient size, use of iterative reconstruction technique) 2010 [employer]- All Rights Reserved
== END ==
LOC: RAD 08:10
PROVIDERS: ATTEND Internal Medicine Pulmonary Disease
DX: R91.8 Other nonspecific abnormal finding of lung field (principal)
CPT/HCPCS: 71250

== ENCOUNTER → 2017-07-07 | Outpatient (CLI) | payer OTHER ==
--- NOTE | 2017-07-07 09:14 | RADIOLOGY REPORT (SQ) ---
EXAM DESCRIPTION: CT SOFT TISSUE NECK WITHOUT COMPLETED DATE/TIME: 07/07/2017 8:41 am REASON FOR STUDY: PALPABLE MASS OF NECK (R22.1) R22.1 LOCALIZED SWELLING, MASS AND LUMP, NECK COMPARISON: None. TECHNIQUE: Noncontrast scanning from skull base through lung apices with review of bone, soft tissue and lung windows. Reconstructed coronal and sagittal MPR images reviewed. Bilateral skin markers l ocated in the areas of concern. All images stored on PACS. All CT scanners at this facility use dose modulation, iterative reconstruction, and/or weight based d osing when appropriate to reduce radiation dose to as low as reasonably achievable (ALARA). [facility]: Dose Right [facility]: CareDose [facility]: Dose Right [facility]: Teradose 4D [facility]: T1 Visions RADIATION DOSE: mGy. LIMITATIONS: None. FINDINGS: SKULL BASE: Intact. MAJOR SALIVARY GLANDS: No solid or cystic masses. No inflammatory changes. LYMPHADENOPATHY: No adenopathy. MUCOSAL MASSES OR ASYMMETRY: No mucosal masses or asymmetry. LARYNX/CORDS: No abnormal findings. LUNG APICES: Clear. BONES: Intact. Surgical changes with hardware in the lower cervical spine. THYROID: Normal size. No masses. PARANASAL SINUSES: Clear. OTHER: No other significant finding. 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 IMPRESSION: NO SIGNIFICANT FINDING IN THE SOFT TISSUES OF THE NECK. NO FINDINGS IN THE INDICATED AR EAS OF CONCERN. TECHNICAL DOCUMENTATION: JOB ID: [id number] Quality ID # [id number]: Final reports with documentation of one or more dose reduction techniques (e.g., Au tomated exposure control, adjustment of the mA and/or kV according to patient size, use of iterative reconstruction technique) 2010 [employer] All Rights Reserved
== END ==
LOC: RAD 08:27
PROVIDERS: ATTEND Internal Medicine Pulmonary Disease
DX: R22.1 Localized swelling, mass and lump, neck (principal)
CPT/HCPCS: 70490

== ENCOUNTER → 2017-08-12 | Outpatient (CLI) | payer OTHER ==
--- NOTE | 2017-08-12 16:17 | XCELERA REPORT ---
[address] [address] Lower Extremity Arterial Evaluation Name: MARINA ROSARIO Age: 62 yrs Gender: Female : 1955 Patient Status: Outpatient Patient Location: [facility] Study Date: 08/12/2017 08:01 AM Procedure: A color flow and duplex scan of the lower extremity arteries was performed bilaterally with velocity and waveform anaylsis. Reason For Study: BILATERAL LEG PAIN Ordering Physician: REGGIE LY Performed By: Heather Watson Measurements and Calculations Right Left BAG BAILER PSV 170.3 125.7 cm/sec Prox PFA PSV -78.3 -76.6 cm/sec Prox SFA PSV -64.8 -134.8 cm/sec Mid SFA PSV -138.3 -101.3 cm/sec Dist SFA PSV -103.4 -105.5 cm/sec Prox Pop A PSV 86.6 120.8 cm/sec Dist PRANAY PSV 92.8 90.0 cm/sec Dist BILLING CHECKER PSV 85.4 86.4 cm/sec Tello Pedis PSV 75.6 74.3 cm/sec Right Side Arterial Evaluation Normal velocity and triphasic waveforms noted from the Common Femoral artery to the infrageniculate vessels. 0 % stenosis noted. Ankle Brachial index is 1.1. Left Side Arterial Evaluation Normal velocity and triphasic waveforms noted from the Common Femoral artery to the infrageniculate vessels. 0 % stenosis noted. Ankle Brachial index is 1.0. Interpretation Summary No hemodynamically significant lesions in the bilateral lower extremities, on duplex imaging, at rest. : REGGIE LY > Francis Rico
== END ==
LOC: SP 07:55
PROVIDERS: ATTEND Physician Assistant
DX: M79.604 Pain in right leg (principal); M79.605 Pain in left leg
CPT/HCPCS: 93925

== ENCOUNTER → 2018-04-28 | Outpatient (CLI) | payer OTHER ==
--- NOTE | 2018-04-28 15:01 | WOMENS IMAGING REPORT ---
EXAM DESCRIPTION: 3D SCREENING MAMMO BILAT COMPLETED DATE/TIME: 04/28/2018 9:37 am REASON FOR STUDY: BILATERAL SCREENING MAMMO 3D/Z12.31 Z12.31 ENCNTR SCREEN MAMMOGRAM FOR MALIGNANT NEOPLASM OF CARINE COMPARISON: Multiple since 2009 TECHNIQUE: Standard craniocaudal and mediolateral oblique views of each breast recorded using digita l acquisition and breast tomosynthesis. LIMITATIONS: None. FINDINGS: No masses, calcifications or architectural distortion. No areas of suspicion. Old left up per outer quadrant stereotactic clip from benign biopsy in 2009 Read with the assistance of CAD. .[facility] - R2 Cenova Version 1.3 .[facility] Imaging - R2 Cenova Version 1.3 .[facility] Imaging - R2 Cenova Version 2.4 .[facility] [place] - R2 Cenova Version 2.4 .[facility] - R2 Coating Engineer Version 9.2 IMPRESSION: NORMAL MAMMOGRAM. BIRADS 1. BREAST DENSITY: b. There are scattered areas of fibroglandular density. BIRAD: 1 NEGATIVE RECOMMENDATION: ROUTINE SCREENING Please continue yearly bilateral screening tomosynthesis in April 2019 COMMENT: The patient has been notified of the results by letter per MQSA requirements. Additional no tification policies are in place for contacting patient with suspicious or incomplete findings. Quality ID #225: The [employer] recommends an annual screening mammogram for women aged 40 years or over. This facility utilizes a reminder system to ensure that all patients receive reminder letters, and/or direct phone calls for appointments. This includes reminders for routine scr eening mammograms, diagnostic mammograms, or other Breast Imaging Interventions when appropriate. Th is patient will be placed in the appropriate reminder system. The [employer] (ACR) has developed recommendations for screening MRI of the breast s in certain patient populations, to be used in conjunction with mammography. Breast MRI surveillanc e may be appropriate for women with more than 20% lifetime risk of developing breast cancer as deter mined by genetic testing, significant family history of the disease, or history of mantle radiation f or Hodgkins Disease. ACR Practice Guidelines 2008. DBT Technology DBT is a type of tomographic mammography. With conventional mammography, overlapping breast tissue ma y make lesions difficult to detect, even with good compression. DBT uses an x-ray tube that rotates a round the breast, taking images at different angles. These images are then combined to create thin sl ices of the breast that the radiologist can view as a 3D reconstruction. The [employer] unit can perform full-field digital mammograms (2D imaging); or DBT (3D imaging); or both, in a combination mode that quickly performs both the mammogram and the tomosynthesis scan while the breast is still compressed. PQRS 6045F: Fluoroscopic imaging is not utilized for breast tomosynthesis. TECHNICAL DOCUMENTATION: FINDING NUMBER: (1) ASSESSMENT: (1) JOB ID: [id number] [employer]- All Rights Reserved Reading location - IP/workstation name: [facility]-[email or web address]
== END ==
LOC: WI 09:14
PROVIDERS: ATTEND Physician Assistant
DX: Z12.31 Encounter for screening mammogram for malignant neoplasm of breast (principal)
CPT/HCPCS: 77063; 77067

== ENCOUNTER 2018-11-04 15:17 | Emergency (ER) | payer OTHER ==
[2018-11-04 15:49] VITALS: BP 156/62
--- NOTE | 2018-11-04 16:11 | ER Document Report ---
HPI - HPI Patient complains to provider of: Low back pain Time Seen by Provider: 11/04/18 15:52 Onset/Duration: Persistent Quality of pain: Stabbing Pain Level: 5 Context: Patient presents complaining of right lower back pain that radiates into her right lower leg down to the level of her distal right thigh. Patient denies any injury. Patient does states she has chronic low back pain. Patient denies any urinary retention or incontinence. Patient denies any fever or or use of IV drugs. Associated Symptoms: Other - Low back pain, right leg pain. denies: Fever Exacerbated by: Movement Relieved by: Denies Similar symptoms previously: Yes - Chronic back pain Recently seen / treated by doctor: No - ROS ROS below otherwise negative: Yes Systems Reviewed and Negative: Yes All other systems reviewed and negative - CONSTITUTIONAL Constitutional: DENIES: Fever - NEURO Neurology: DENIES: Weakness - GASTROINTESTINAL Gastrointestinal: DENIES: Nausea - URINARY Urinary: DENIES: Dysuria - REPRODUCTIVE Reproductive: DENIES: : - MUSCULOSKELETAL Musculoskeletal: REPORTS: Extremity pain - Right leg, Back Pain - DERM Skin Color: Normal Skin Problems: None Past Medical History - General Information source: Patient - Social History Smoking Status: Never Smoker Chew tobacco use (# tins/day): No Frequency of alcohol use: None Drug Abuse: None Occupation: Call center Lives with: Family Family History: Reviewed & Not Pertinent, CAD, Other - Heart attacks Patient has suicidal ideation: No Patient has homicidal ideation: No - Past Medical History Cardiac Medical History: Reports: Hx Hypercholesterolemia Denies: Hx Heart Attack, Hx Hypertension Pulmonary Medical History: Reports: Hx COPD Denies: Hx Asthma, Hx Tuberculosis Neurological Medical History: Denies: Hx Cerebrovascular Accident, Hx Seizures Endocrine Medical History: Reports: Hx Diabetes Mellitus Type 1 - borderline, Hx Diabetes Mellitus Type 2 Renal/ Medical History: Denies: Hx Peritoneal Dialysis GI Medical History: Denies: Hx Hepatitis, Hx Hiatal Hernia, Hx Ulcer Psychiatric Medical History: Reports: Hx Depression Infectious Medical History: Denies: Hx Hepatitis Past Surgical History: Reports: Hx Abdominal Surgery - gastric bypass, Hx Appendectomy, Hx Cholecystectomy, Hx Gastric Bypass Surgery, Hx Hysterectomy, Hx Orthopedic Surgery - bilat knee; back; neck, Hx Tonsillectomy - Immunizations Hx Diphtheria, Pertussis, Tetanus Vaccination: No Hx Pneumococcal Vaccination: 08/06/13 Vertical Provider Document - CONSTITUTIONAL Agree With Documented VS: Yes Exam Limitations: No Limitations General Appearance: WD/WN, No Apparent Distress Notes: PHYSICAL EXAMINATION: GENERAL: Well-appearing, morbidly obese and in no acute distress. HEAD: Atraumatic, normocephalic. EYES: sclera clear, anicteric, conjunctiva are normal. ENT: nares patent, Moist mucous membranes. NECK: Normal range of motion, supple no lymphadenopathy LUNGS: respirations unlabored HEART: Regular rate and rhythm without murmurs EXTREMITIES: Normal range of motion, no pitting or edema. No cyanosis. Gait normal, pt ambulates without difficulty BACK: Right lower lumbar paraspinal tenderness, lower lumbar midline tenderness, no deformities or step-offs. No CVA tenderness. NEUROLOGICAL: Cranial nerves grossly intact. Normal speech, normal gait. No saddle anesthesia. 2+ bilateral Achilles and patellar reflexes. Negative straight leg test PSYCH: Normal mood, normal affect. SKIN: Warm, Dry, normal turgor, no rashes or lesions noted. - INFECTION CONTROL TRAVEL OUTSIDE OF THE [place] IN LAST 30 DAYS: No Course - Re-evaluation Re-evalutation: 11/04/18 16:10 The patient presents with low back pain without signs of spinal cord compression, cauda equina syndrome, infection, aneurysm, or other serious etiology. The patient is neurologically intact. Given the extremely risk of these diagnoses further testing and evaluation for these possibilities does not appear to be indicated at this time. Patient has been instructed to return if the symptoms worsen or change in any way. - Vital Signs Vital signs: Temp Pulse Resp BP Pulse Ox 98.1 F 62 15 156/62 H 98 11/04/18 15:46 11/04/18 15:46 11/04/18 15:46 11/04/18 15:46 11/04/18 15:46 Discharge - Discharge Clinical Impression: Low back pain Qualifiers: Chronicity: unspecified Back pain laterality: right Sciatica presence: with sciatica Sciatica laterality: sciatica of right side Qualified Code(s): M54.41 - Lumbago with sciatica, right side Condition: Stable Disposition: HOME, SELF-CARE Instructions: Low Back Pain ([facility]), Sciatica ([facility]) Additional Instructions: Return immediately for any new or worsening symptoms Followup with your primary care provider, call tomorrow to make a followup appointment Follow-up with your orthopedic surgeon for recheck Prescriptions: Hydrocodone/Acetaminophen [Morse 5-325 mg Tablet] 1 tab PO Q6 PRN #15 tablet PRN Reason: Forms: Return to Work Referrals: REGGIE LY PA [Primary Care Provider] - Follow up as needed
[2018-11-04] MEDS ORDERED: HYDROCODONE/ACETAMINOPHEN 5-325 MG TABLET PO ONE (16:14)
[2018-11-04] MEDS ORDERED: LIDOCAINE 5% (700 MG) TRANSDERMAL ADH..PATCH TP ONE (16:14)
== END 2018-11-04 16:30 | disposition home or self-care (01) ==
LOC: ER 15:17
DX: M54.41 Lumbago with sciatica, right side (principal); M79.604 Pain in right leg; M79.651 Pain in right thigh; G89.29 Other chronic pain; E78.00 Pure hypercholesterolemia, unspecified; E11.9 Type 2 diabetes mellitus without complications
CPT/HCPCS: 99283

== ENCOUNTER → 2018-12-06 | Outpatient (CLI) | payer OTHER ==
--- NOTE | 2018-12-06 13:31 | RADIOLOGY REPORT (SQ) ---
EXAM DESCRIPTION: MRI LUMBAR SPINE WITHOUT COMPLETED DATE/TIME: 12/06/2018 9:50 am REASON FOR STUDY: M54.41 LUMBAGO WITH SCIATICA, RIGHT SIDE M54.41 LUMBAGO WITH SCIATICA, RIGHT SIDE COMPARISON: CT abdomen pelvis 08/02/2013 TECHNIQUE: Sagittal and Axial imaging includes T1, T2, STIR and gradient echo sequences. Coronal T2/ HASTE imaging. LIMITATIONS: None. FINDINGS: VISUALIZED UPPER ABDOMEN: Limited evaluation. No acute or suspicious findings suggested. SEGMENTATION: No transitional anatomy. The lowest well-developed disc space is labeled L5-S1. ALIGNMENT: Mild grade 1 anterolisthesis of L3 over L4 VERTEBRAE: Intact. BONE MARROW: Fatty vertebral body endplate changes at L2-3, L4-5, L5-S1 DISC SIGNAL: Diffuse decreased T2 weighted disc signal. Disc space loss of height at L2-3, L4-5, L5- S1 POSTERIOR ELEMENTS: Right spondylolysis at L2. HARDWARE: None in the spine. CORD AND CONUS: Normal in size and signal intensity. Conus at the L1-2 level. SOFT TISSUES: No aortic aneurysm seen. No bulky retroperitoneal adenopathy or mass. No paraspinal mas s or fluid. T10-11: Mild bilateral facet hypertrophy with mild bilateral foraminal narrowing. No central stenos is T11-12: Small central disc herniation with inferior migration of the extruded fragment. Borderline central canal narrowing. Mild bilateral facet and ligament hypertrophy with mild bilateral foraminal narrowing T12-L1: Minimal posterior disc bulging, no central or foraminal stenosis. L1-L2: Mild diffuse posterior disc bulging and facet/ ligament hypertrophy. Borderline central canal narrowing. Mild bilateral inferior foraminal narrowing. L2-L3: Right-sided L2 spondylolysis is present on sagittal images 5 and 6. There very bulky bony scl erosis and bony spurring along the right-sided facet joint. Question micro laminectomy defect on the right. These findings along with broad diffuse posterior disc bulge and left facet and ligament hyp ertrophy cause [id number] central canal narrowing with flattening of the thecal sac into a tria ngular shape and effacement of the CSF around the lumbar nerve roots best shown on axial T2 images 9- 12. There is moderate right foraminal narrowing from asymmetric facet sclerosis, partial effacement of the fat around the exiting right L2 nerve root. Mild left foraminal narrowing without exiting lef t L2 nerve root impingement. L3-L4: Grade 1 anterolisthesis of L3 over L4 is present. Bulky bilateral facet and ligament hypertro phy. Old bilateral laminectomy defect. Mild to moderate central canal stenosis results from anterol isthesis, broad diffuse disc bulge and bulky facet hypertrophy with partial effacement of the CSF david und the lumbar nerve roots. There is moderate bilateral foraminal narrowing with partial effacement of the fat around the exiting L3 nerve roots bilaterally. L4-L5: Old bilateral laminectomy. Bilateral facet hypertrophy. Broad diffuse posterior disc bulging . Central canal is decompressed. There is mild bilateral foraminal narrowing without exiting L4 ner ve root impingement. L5-S1: Broad diffuse posterior mild disc bulging and mild bilateral facet and ligament hypertrophy. No central stenosis. Moderate right foraminal narrowing without definite right exiting L4 nerve root impingement. High-grade left L5-S1 foraminal narrowing with effacement of fat around the exiting le ft L5 nerve root SACRUM: Visualized upper sacrum intact. OTHER: No other significant findings. IMPRESSION: Central canal stenosis most pronounced at L2-3 but also seen at L3-4. Multilevel foraminal narrowing as above TECHNICAL DOCUMENTATION: JOB ID: [id number] [employer]- All Rights Reserved Reading location - IP/workstation name: [email or web address]
== END ==
LOC: RAD 09:04
PROVIDERS: ATTEND Physician Assistant
DX: M54.41 Lumbago with sciatica, right side (principal); M48.061 Spinal stenosis, lumbar region without neurogenic claudication
CPT/HCPCS: 72148

== ENCOUNTER 2019-09-13 11:21 | Day surgery (SDC) | payer OTHER ==
[2019-09-12 10:47] LABS: ABSOLUTE EOSINOPHILS # (AUTO) 0.2 10^3/uL (0.0-0.6); ABSOLUTE LYMPHOCYTES (AUTO) 1.3 10^3/uL (0.5-4.7); ABSOLUTE MONOCYTES (AUTO) 0.4 10^3/uL (0.1-1.4); ABSOLUTE NEUT (AUTO) 3.9 10^3/uL (1.7-8.2); BASOPHILS % (AUTO) 0.6 % (0-2); EOSINOPHILS % (AUTO) 2.7 % (0-6); HEMOGLOBIN 13.7 g/dL (12.0-15.5); MEAN CORPUSCULAR HGB CONC 34.2 g/dL (32.0-36.0); MEAN CORPUSCULAR VOLUME 91 fl (80-97); PLATELET COUNT 236 10^3/uL (150-450); RED BLOOD COUNT 4.41 10^6/uL (3.72-5.28); RED CELL DISTRIBUTION WIDTH 13.5 % (11.5-14.0); SEGMENTED NEUTROPHILS % (AUTO) 66.7 % (42-78); TOTAL CELLS COUNTED % (AUTO) 100 %; WHITE BLOOD COUNT 5.8 10^3/uL (4.0-10.5)
[2019-09-12 11:14] LABS: ANION GAP 13 (5-19); BLOOD UREA NITROGEN 17 mg/dL (7-20); CALCIUM 9.1 mg/dL (8.4-10.2); CARBON DIOXIDE 21 mmol/L (22-30); CHLORIDE 108 mmol/L (98-107); GLUCOSE 70 mg/dL (75-110); POTASSIUM 4.5 mmol/L (3.6-5.0)
--- NOTE | 2019-09-12 12:42 | RADIOLOGY REPORT (SQ) ---
EXAM DESCRIPTION: CHEST PA/LATERAL COMPLETED DATE/TIME: 09/12/2019 11:48 am REASON FOR STUDY: PRE-OP COMPARISON: CT chest 05/13/2017, 12/13/2016 Chest films 01/23/2014, 03/24/2010, 09/24/2007 EXAM PARAMETERS: NUMBER OF VIEWS: two views TECHNIQUE: Digital Frontal and Lateral radiographic views of the chest acquired. RADIATION DOSE: NA LIMITATIONS: none FINDINGS: LUNGS AND PLEURA: No acute infiltrates. No pleural effusion or pneumothorax. Calcified g ranuloma right mid lung unchanged from CT exam 12/13/2016 MEDIASTINUM AND HILAR STRUCTURES: No masses or contour abnormalities. Calcified AP window lymph node s HEART AND VASCULAR STRUCTURES: Heart normal size. No evidence for failure. BONES: No acute findings. HARDWARE: Lower cervical fusion hardware OTHER: No other significant finding. IMPRESSION: No acute findings TECHNICAL DOCUMENTATION: JOB ID: [id number] [email or web address]- All Rights Reserved Reading location - IP/workstation name: [email or web address]
--- NOTE | 2019-09-12 23:54 | EKG REPORT ---
SEVERITY:- NORMAL ECG - SINUS RHYTHM : Confirmed by: Marquise Little 12-Sep-2019 23:53:26
[~2019-09-13 11:21] MED LIST: CEFAZOLIN SODIUM 2 GM in DEXTROSE 5%-WATER 100 ML IV PRN; LACTATED RINGERS 1000 ML IV PRN; LIDOCAINE 0.5% INJ-PF (5 MG/ML) 50 ML SDV SUBCUT PRN
[2019-09-13] MEDS ORDERED: MIDAZOLAM 2 MG/2 ML INJ ONE (12:41)
[2019-09-13] MEDS ORDERED: FENTANYL CITRATE INJ/PF 100 MCG/2 ML AMPUL ONE (12:41)
[2019-09-13] MEDS ORDERED: ONDANSETRON HCL INJ/PF 4 MG/2 ML SDV ONE ×2 (12:42→16:15)
[2019-09-13] MEDS ORDERED: PROPOFOL INJ 200 MG/20 ML VIAL IV ONE (12:42)
[2019-09-13] MEDS ORDERED: DEXAMETHASONE SOD PHOSPHATE INJ 4 MG/1 ML VIAL ONE (12:42)
[2019-09-13] MEDS ORDERED: SUCCINYLCHOLINE CHLORIDE INJ 200 MG/10 ML VIAL ONE (12:46)
[2019-09-13] MEDS ORDERED: BUPIVACAINE HCL 0.5 % INJ/PF 30 ML SDV ONE (13:54)
[2019-09-13] MEDS ORDERED: DIAZEPAM 5 MG TABLET ONE (13:58)
[2019-09-13] MEDS ORDERED: LIDOCAINE 1% INJ-PF (10 MG/ML) 30 ML SDV ONE (14:21)
[2019-09-13] MEDS ORDERED: RINGERS SOLUTION,LACTATED 1,000 ML IV ONE (14:30)
[2019-09-13] MEDS ORDERED: FAMOTIDINE INJ/PF 20 MG/2 ML SDV IV ONE (14:30)
[2019-09-13] MEDS ORDERED: FENTANYL CITRATE INJ/PF 100 MCG/2 ML AMPUL IV PRN ×4 (14:56→15:52)
[2019-09-13] MEDS ORDERED: DIPHENHYDRAMINE HCL 50 MG/ML VIAL IV PRN (14:56)
[2019-09-13] MEDS ORDERED: ONDANSETRON HCL INJ/PF 4 MG/2 ML SDV IV PRN ×2 (14:56→15:52)
[2019-09-13] MEDS ORDERED: MORPHINE SULFATE 10 MG/ML INJ IV PRN (14:56)
[2019-09-13] MEDS ORDERED: MEPERIDINE HCL/PF INJ 25 MG/1 ML DISP.SYRIN IV PRN (14:56)
[2019-09-13] MEDS ORDERED: ALBUTEROL SULFATE 0.083% NEB 2.5 MG/3 ML AMPUL NEB ONE (15:30)
[2019-09-13] MEDS ORDERED: METOCLOPRAMIDE HCL INJ/PF 10 MG/2 ML SDV IV ONE (15:30)
[2019-09-13] MEDS ORDERED: METOCLOPRAMIDE HCL 10 MG TABLET PO ONE (15:30)
[2019-09-13] MEDS ORDERED: LIDOCAINE 2% INJ (20 MG/ML) 20 ML MDV ONE (15:52)
[2019-09-13] MEDS ORDERED: OXYCODONE-ACETAMINOPHEN 5-325 MG TABLET PO PRN (15:52)
[2019-09-13] MEDS ORDERED: ROPIVACAINE HCL 0.5% INJ/PF (5 MG/1 ML) 30 ML SDV ONE (15:52)
--- NOTE | 2019-09-13 15:53 | Discharge Summary ---
Discharge Summary (SDC) - Discharge Final Diagnosis: RIGHT distal radius fracture Date of Surgery: 09/13/19 Discharge Date: 09/13/19 Condition: Good Treatment or Instructions: Schedule Follow Up w/ Dr. Dom Bernstein @ [facility] for Surgery to be seen in 10-14 days or as scheduled [place]: [place]: [place]: Vitamin C 500 mg 51 days postoperatively Ice and elevate Keep splint clean/dry/intact, do not remove. If your fingers become numb please unwrap the Hoang wrap but leave the splint in place, if the sensation does not return within 30 minutes please return to the emergency department. May begin finger range of motion attempting to make full fist. Please use ibuprofen (Motrin or Advil) 600-800 mg every 8 hours as needed for pain or fever DO NOT TAKE w/ TORADOL may use once TORADOL complete. You may also use acetaminophen (Tylenol) 1000 mg every 4-6 hours as needed for pain or fever. Please be aware that many medications contain acetaminophen, do not exceed a total of 1000 mg of acetaminophen every 6 hours. If ibuprofen and acetaminophen are not sufficient for your pain you may take the Percocet/[place]. Please be aware that the Percocet/[place] does contain Tylenol. Stool softener of choice when on pain medication. USE OF QLZA-REE-RNRKEJS IBUPROFEN: Ibuprofen (Advil, Nuprin, Medipren, Motrin IB) is a medication for fever and pain control. In addition, it has anti- inflammatory effects which may be beneficial, especially in the treatment of injuries. It's best to take ibuprofen with food. Persons with ulcer disease or allergy to aspirin should notify their physician of this before taking ibuprofen. Ibuprofen can be given every four to six hours, for a total of four doses daily. Age Pain or fever dose Antiinflammatory dose 6-8 yr 200 mg (1 tab) 200 mg (1 tab) 9-11 yr 200 mg (1 tab) 200-400 mg (1-2 tab) 11-14 yr 200-400 mg (1-2 tab) 400 mg (2 tab) 15-adult 400 mg (2 tab) 600 mg (3 tab) ORAL NARCOTIC MEDICATION: You have been given a prescription for pain control. This medication is a narcotic. It's best taken with food, as nausea can result if taken on an empty stomach. Don't operate machinery or drive within six hours of taking this medication. Do not combine this medicine with alcohol, or with any medication which can cause sedation (such as cold tablets or sleeping pills) unless you get permission from the physician. Narcotics tend to cause constipation. If possible, drink plenty of fluids and eat a diet high in fiber and fruits. Please be aware that prescription narcotics also have the potential for abuse. People become addicted to these medications because of the general sense of wellbeing that they induce. This feeling along with a significant reduction in tension, anxiety, and aggression provides a stimulating seductive quality to these drugs. Once your pain is under control, we encourage you to discard your unused narcotics. Prescriptions: Oxycodone HCl/Acetaminophen [Percocet 7.5-325 mg Tablet] 1 tab PO Q6 PRN #25 tab PRN Reason: Ondansetron HCl [Zofran 4 mg Tablet] 1 tab PO Q6 PRN #16 tablet PRN Reason: Referrals: MIKE LO MD [Primary Care Provider] - Discharge Diet: As Tolerated Respiratory Treatments at Home: Deep Breathing/Coughing, Incentive Spirometer Discharge Activity: No Lifting Over 10 Pounds, No Lifting/Push/Pulling Report the Following to Your Physician Immediately: Fever over 101 Degrees, Unusual Bleeding, Redness, Swelling, Increased Soreness
--- NOTE | 2019-09-13 15:54 | Operative Report ---
Operative Report DATE OF SURGERY: 09/13/19 PREOPERATIVE DIAGNOSIS: Right intra-articular distal radius fracture POSTOPERATIVE DIAGNOSIS: Same OPERATION: Open reduction internal fixation 2 part intra-articular right distal radius fracture SURGEON: JUMANA CHAVEZ ANESTHESIA: GA COMPLICATIONS: None ESTIMATED BLOOD LOSS: Minimal PROCEDURE: Indication for above procedure: 64-year-old female who sustained a fall onto her outstretched left wrist. Patient had radiographs at ER confirming comminuted intra-articular distal radius fracture. Upon follow-up at my office we discussed findings on radiographs and treatment options decision was made to proceed with operative intervention. Risk and benefits were explained patient verbalized understanding consented for surgical procedure. Procedure In Detail: Patient was seen and evaluated in the preoperative holding area. The RIGHT upper extremity was initialized and marked. Patient received 2g of Ancef IV for bacterial prophylaxis. Patient was taken back to the operative room where transferred to the operative table and placed under general anesthesia. Once they were adequately anesthetized and a nonsterile tourniquet was placed on his upper extremity. A surgical team debriefing was performed ensuring all instrumentation was available, the surgical procedure was discussed with po ssible concerns reviewed. The upper extremity was prepped with chlorhexidine and alcohol and draped in a sterile fashion. A timeout was done identifying correct patient, procedure and extremity everyone in attendance agree with this and verbalized no concerns.The extremity was exsanguinated the tourniquet was inflated to 250 mmHg. A longitudinal skin incision was made via a volar approach of Rick along the FCR tendon sheath. The FCR tendon sheath was opened and the FCR retracted ulnarly, the palmar cutaneous branch of the median nerve was identified and protected throughout the entirety of the case. The radial artery was identified and retracted radially. Blunt dissection was performed to the FPL which was carefully sweeped ulnarly. This brought me to the pronator quadratus which was elevated off of the distal radius via sharp dissection with a 15 blade to allow later repair. The fracture was then identified and a reduction maneuver was performed utilizing a [place] elevator. Intra-articular fragment was reduced. Reduction was confirmed with C arm fluoroscopy. A standard Acumed 3 hole volar distal radius plate was placed into position and fixated with a K wire distally x2. AP and lateral radiographs were then obtained demonstrating appropriate placement of the plate and acceptable reduction of the fracture. Using a reduction tenaculum I was able to bring the plate down to bone distally. After drilling distally a cortical screw was used bringing the plate further down to bone, avoiding any liftoff of the plate from the volar cortex that could cause flexor tendon irritation post-operativley. Drilling the near cortex and to but not thru the far cortex a locking screw was then placed in the remaining holes. The previous cortex screw was removed and replaced with a locking screw. Two additional screws were placed into the styloid giving further stability to the radial styloid piece. AP and lateral radius were then done confirming appropriate placement of plate with no evidence of penetration intra-articular or within the DRUJ. I then turned my attention to the proximal screws. I drilled bicortically bringing the plate down to bone with a cortex screw. The remaining 2 holes proximally were drilled bicortically placing the appropriate size cortex in the proximal most hole and a locking screw in the distal shaft hole. AP and lateral radiographs were done confirming appropriate placement of the plate and reduction of the fracture there was latter-day of radial height, radial inclination and volar tilt. No evidence of dorsal screw prominence or intra-articular penetration of the DRUJ or radiocarpal joint. The wound was copiously irrigated with normal saline. There was no evidence of DRUJ instability on examination, Negative Cantu's test, No crepitus with range of motion at the radiocarpal joint or DRUJ. The pronator quadratus was closed with interrupted 3-0 Monocryl suture. Subcutaneous tissues were closed with interrupted 4-0 Monocryl suture. The skin was closed with a running subcuticular 4-0 Monocryl suture which was reinforced with Dermabond and Steri- Strips. The tourniquet was then deflated. Was dressed with sterile 4 x 4's and patient was placed in a well-padded volar splint. Sponge counts, instrument counts and needle counts were correct. There was no intraoperative complications patient tolerated procedure well stable to PACU. Postoperative plan: Patient will be switched to a removal brace at first postoperative followup visit and begin range of motion. Patient is encouraged to start vitamin C 500 mg daily for 51 days. Will obtain radiographs at followup of the wrist.
[2019-09-13] MEDS ORDERED: LIDOCAINE 2%/EPINEPHRINE INJ 20 ML VIAL ONE (15:59)
--- NOTE | 2019-09-13 16:00 | RADIOLOGY REPORT (SQ) ---
EXAM DESCRIPTION: NO CHG FLUORO; WRIST RIGHT 2 VIEWS COMPLETED DATE/TIME: 09/13/2019 3:48 pm REASON FOR STUDY: RIGHT WRIST ORIF S52.571A OTH INTARTIC FRACTURE OF LOWER END OF RIGHT RADIUS, COMPARISON: None. FLUOROSCOPY TIME: 0.6 minutes 6 images saved to PACS. TECHNIQUE: Intra-operative images acquired during surgical procedure to evaluate progress. NUMBER OF IMAGES: 6 LIMITATIONS: None. FINDINGS: Limited intraoperative images demonstrate evidence of distal radial plate and screw fixati on. Please see operative report for detailed description. IMPRESSION: IMAGE(S) OBTAINED DURING PROCEDURE. COMMENT: Quality ID 145: Final reports for procedures using fluoroscopy that document radiation exp osure indices, or exposure time and number of fluorographic images (if radiation exposure indices are not available) Please consult full operative report of the attending physician for description of the procedure. TECHNICAL DOCUMENTATION: JOB ID: [id number] [employer]- All Rights Reserved Reading location - IP/workstation name: [email or web address]
--- NOTE | 2019-09-13 16:00 | RADIOLOGY REPORT (SQ) ---
EXAM DESCRIPTION: NO CHG FLUORO; WRIST RIGHT 2 VIEWS COMPLETED DATE/TIME: 09/13/2019 3:48 pm REASON FOR STUDY: RIGHT WRIST ORIF S52.571A OTH INTARTIC FRACTURE OF LOWER END OF RIGHT RADIUS, COMPARISON: None. FLUOROSCOPY TIME: 0.6 minutes 6 images saved to PACS. TECHNIQUE: Intra-operative images acquired during surgical procedure to evaluate progress. NUMBER OF IMAGES: 6 LIMITATIONS: None. FINDINGS: Limited intraoperative images demonstrate evidence of distal radial plate and screw fixati on. Please see operative report for detailed description. IMPRESSION: IMAGE(S) OBTAINED DURING PROCEDURE. COMMENT: Quality ID 145: Final reports for procedures using fluoroscopy that document radiation exp osure indices, or exposure time and number of fluorographic images (if radiation exposure indices are not available) Please consult full operative report of the attending physician for description of the procedure. TECHNICAL DOCUMENTATION: JOB ID: [id number] [email or web address]- All Rights Reserved Reading location - IP/workstation name: [email or web address]
[2019-09-13] MEDS ORDERED: HYDROMORPHONE HCL INJ/PF 2 MG/ML AMPULE ONE (16:27)
[2019-09-13] MEDS ORDERED: OXYCODONE-ACETAMINOPHEN 5-325 MG TABLET ONE (17:25)
[2019-09-13] MEDS ORDERED: PROMETHAZINE HCL INJ 25 MG/1 ML VIAL ONE (17:34)
[2019-09-13] MEDS ORDERED: PROMETHAZINE HCL INJ 25 MG/1 ML VIAL IV ONE (18:15)
[2019-09-13 19:58] VITALS: BP 156/87
== END 2019-09-13 18:45 | disposition home or self-care (01) ==
LOC: OROUT 11:21
PROVIDERS: ATTEND Orthopaedic Surgery
DX: S52.571A Other intraarticular fracture of lower end of right radius, initial encounter for closed fracture (principal); W19.XXXA Unspecified fall, initial encounter; J44.9 Chronic obstructive pulmonary disease, unspecified; E78.00 Pure hypercholesterolemia, unspecified; E11.9 Type 2 diabetes mellitus without complications; G89.4 Chronic pain syndrome; N32.81 Overactive bladder; Z88.2 Allergy status to sulfonamides; Z88.5 Allergy status to narcotic agent; Z79.51 Long term (current) use of inhaled steroids; Z79.899 Other long term (current) drug therapy; Z79.84 Long term (current) use of oral hypoglycemic drugs; Z79.891 Long term (current) use of opiate analgesic
CPT/HCPCS: 93005; 36415; 82962; 85025; 80048; 71046; 73100; 93010; 01830; 25608; J2795; J2250; J3490 ×2; J0690; J1100; J3010; J1170; J2550; J0330; J2405; J7060; J2704; C1713; C1769

== ENCOUNTER → 2020-05-25 | Outpatient (CLI) | payer OTHER ==
--- NOTE | 2020-05-28 16:41 | WOMENS IMAGING REPORT ---
EXAM DESCRIPTION: 3D SCREENING MAMMO BILAT IMAGES COMPLETED DATE/TIME: 05/25/2020 3:21 pm REASON FOR STUDY: Z12.31 ENCOUNTER FOR SCREENING MAMMOGRAM FOR MALIGNANT NEOPLASM OF BREAST Z12.31 ENCNTR SCREEN MAMMOGRAM FOR MALIGNANT NEOPLASM OF CARINE COMPARISON: 2017 to 2018 EXAM PARAMETERS: Views: Standard craniocaudal and mediolateral oblique views of each breast recorded using digital acquisition and breast tomosynthesis. Read with the assistance of CAD. .[facility] - [employer] Scale Mechanic Version 9.2 LIMITATIONS: None. FINDINGS: No suspicious masses, suspicious calcifications or architectural distortion. No areas of c oncern. IMPRESSION: NEGATIVE MAMMOGRAM. BIRADS 1. BREAST DENSITY: b. There are scattered areas of fibroglandular density. BIRAD: ASSESSMENT: 1 NEGATIVE RECOMMENDATION: ROUTINE SCREENING COMMENT: The patient has been notified of the results by letter per MQSA requirements. Additional no tification policies are in place for contacting patient with suspicious or incomplete findings. Quality ID #[id number]: The [employer] recommends an annual screening mammogram for women aged 40 years or over. This facility utilizes a reminder system to ensure that all patients receive reminder letters, and/or direct phone calls for appointments. This includes reminders for routine scr eening mammograms, diagnostic mammograms, or other Breast Imaging Interventions when appropriate. Th is patient will be placed in the appropriate reminder system. TECHNICAL DOCUMENTATION: FINDING NUMBER: (1) ASSESSMENT: (1) JOB ID: [id number] [employer]- All Rights Reserved Reading location - IP/workstation name: [email or web address]
== END ==
LOC: WI 14:46
PROVIDERS: ATTEND Physician Assistant
DX: Z12.31 Encounter for screening mammogram for malignant neoplasm of breast (principal)
CPT/HCPCS: 77063; 77067

== ENCOUNTER 2020-11-08 06:25 | Day surgery (SDC) | payer MEDICARE, OTHER ==
[~2020-11-08 06:25] MED LIST changes: -CEFAZOLIN SODIUM 2 GM in DEXTROSE 5%-WATER 100 ML IV PRN; +KETOROLAC TROMETHAMINE 0.45% 4 DROP/0.4 ML DROPERETTE OD PRN; -LACTATED RINGERS 1000 ML IV PRN; -LIDOCAINE 0.5% INJ-PF (5 MG/ML) 50 ML SDV SUBCUT PRN
--- OUTSIDE RECORDS SUMMARY | 2020-11-08 06:31 | XMS REPORT ---
:1955 Author Organization [facility] Address [facility] [address] [place] [address] Care Team Providers Name Role Phone Asya Pereyra Attending Clinician Unavailable Timi SAHA Attending Clinician Unavailable Gopi SAHA Attending Clinician Unavailable Allergies, Adverse Reactions, Alerts Allergy Name Allergy Status Severity Reaction(s) Onset Inactive Treat ing Comments Type Date Date Clinician Bee stings [id number] Active Codeine and Allergy to Active Related Drug (Finding) Codeine Codeine Active Derivatives Derivatives Naproxen Naproxen Active TABS TABS Bee sting Bee sting Active Aspirin Allergy to Active Vomiting substance Codeine Allergy to Active Vomiting substance Medications Ordered Filled Start Stop Current Ordering Indication Dosage Frequency Signature Comments Components Medication Medication Date Date Medication? Clinician (SIG) Name Name Vitamin 2019-10 No 1000 Vitamin B-12 12-11 B-12 00:00: 00 Yuvafem 10 2019-10 Yes Dalton Yuvafem 10 MCG Vaginal 2 Timi SAHA MCG Tablet 09:37: Vaginal 46 Tablet INSERT ONE TABLET VAGINALLY TWICE WEEKLY Quantity: 8 Refills: 0 Dalton Capellan MD Start : 0Active Yuvafem 10 2019-10 No Dalton Yuvafem 10 MCG Vaginal 11-17 Timi SAHA MCG Tablet 08:30: Vaginal 17 Tablet INSERT ONE TABLET VAGINALLY TWICE WEEKLY Quantity: 8 Refills: 0 Dalton Capellan MD Start : 0Active Vitamin 2019-10 No 1000 Vitamin B-12 11-12 B-12 00:00: 00 Myrbetriq 2019- No Dalton Myrbetriq 50 MG Oral - Timi SAHA 50 MG Oral Tablet 09:24: Tablet Extended 54 Extended Release 24 Release 24 Hour Hour TAKE 1 TABLET BY MOUTH EVERY DAY - needs appt before further refills Quantity: 30 Refills: 0 Dalton Capellan MD Start : 0Active Yuvafem 10 2019-1 No Dalton Yuvafem 10 MCG Vaginal 10-20 Timi SAHA MCG Tablet 12:59: Vaginal 01 Tablet INSERT ONE TABLET VAGINALLY TWICE WEEKLY. Pt will need a fu before additional will be given Quantity: 8 Refills: 0 Dalton Capellan MD Start : 20-Aug-2020 Active Vitamin 2020-1 No 1000 Vitamin B-12 0-29 B-12 00:00: 00 Vitamin 2020-1 No 1000 Vitamin B-12 0-01 B-12 00:00: 00 Vitamin 2020-0 No 1000 Vitamin B-12 9-03 B-12 00:00: 00 Vitamin 2020-0 No 1000 Vitamin B-12 9-03 B-12 00:00: 00 Vitamin 2020-0 No 1000 Vitamin B-12 8-06 B-12 00:00: 00 Vitamin 2020-0 No 1000 Vitamin B-12 8-06 B-12 00:00: 00 Vitamin 2020-0 No 1000 Vitamin B-12 7-09 B-12 00:00: 00 Vitamin 2020-0 No 1000 Vitamin B-12 7-09 B-12 00:00: 00 Vitamin 2020-0 No 1000 Vitamin B-12 6-11 B-12 00:00: 00 Vitamin 2020-0 No 1000 Vitamin B-12 6-11 B-12 00:00: 00 Vitamin 2020-0 No 1000 Vitamin B-12 2-27 B-12 00:00: 00 Vitamin 2020-0 No 1000 Vitamin B-12 2-27 B-12 00:00: 00 Vitamin 2020-0 No 1000 Vitamin B-12 1-31 B-12 00:00: 00 Vitamin 2020-0 No 1000 Vitamin B-12 1-31 B-12 00:00: 00 Vitamin 2020-0 No 1000 Vitamin B-12 1-02 B-12 00:00: 00 Vitamin 2020-0 No 1000 Vitamin B-12 1-02 B-12 00:00: 00 Vitamin 2019-1 No 1000 Vitamin B-12 2-05 B-12 00:00: 00 Vitamin 2019-1 No 1000 Vitamin B-12 2-05 B-12 00:00: 00 Pantoprazol 2019-1 Yes Chema 1 Q0.5D Pantoprazo e Sodium 40 1-07 Gopi le Sodium MG Oral 00:00: 40 MG Oral Tablet 00 Tablet Delayed Delayed Release Release TAKE 1 TABLET TWICE DAILY Quantity: 2 Refills: 11 Chema Nguyễn MD Start : 25-Aug-2019 Active 30 Tablet Bottle Vitamin 2019-1 No 1000 Vitamin B-12 0-24 B-12 00:00: 00 Vitamin 2019-1 No 1000 Vitamin B-12 0-24 B-12 00:00: 00 Vitamin 2019-0 No 1000 Vitamin B-12 9-26 B-12 00:00: 00 Vitamin 2019-0 No 1000 Vitamin B-12 9-26 B-12 00:00: 00 Vitamin 2019-0 No 1000 Vitamin B-12 8-28 B-12 00:00: 00 Vitamin 2019-0 No 1000 Vitamin B-12 8-28 B-12 00:00: 00 Vitamin 2019-0 No 1000 Vitamin B-12 7-31 B-12 00:00: 00 Vitamin 2019-0 No 1000 Vitamin B-12 7-31 B-12 00:00: 00 Vitamin 2019-0 No 1000 Vitamin B-12 7-03 B-12 00:00: 00 Vitamin 2019-0 No 1000 Vitamin B-12 7-03 B-12 00:00: 00 diazePAM 10 2019-0 Yes diazePAM MG Oral 6-25 10 MG Oral Tablet 00:00: Tablet 00 Quantity: 3 Refills: 0 Start : 9Active Vitamin 2019-0 No 1000 Vitamin B-12 6-05 B-12 00:00: 00 Vitamin 2019-0 No 1000 Vitamin B-12 6-05 B-12 00:00: 00 Vitamin 2019-0 No 1000 Vitamin B-12 5-08 B-12 00:00: 00 Vitamin 2019-0 No 1000 Vitamin B-12 5-08 B-12 00:00: 00 Cyclobenzap 2019-0 Yes Cyclobenza rine HCl - 5-01 veronica HCl 10 MG Oral 00:00: - 10 MG Tablet 00 Oral Tablet Quantity: 90 Refills: 0 Start : 16-Feb-2019 Active Vitamin 2019-0 No 1000 Vitamin B-12 4-10 B-12 00:00: 00 Vitamin 2019-0 No 1000 Vitamin B-12 4-10 B-12 00:00: 00 Vitamin 2019-0 No 1000 Vitamin B-12 3-13 B-12 00:00: 00 Vitamin 2019-0 No 1000 Vitamin B-12 3-13 B-12 00:00: 00 Cetirizine 2019-0 Yes Cetirizine HCl - 10 MG -24 HCl - 10 Oral Tablet 00:00: MG Oral 00 Tablet Quantity: 30 Refills: 0 Start : 9Active Wixela 2019- Yes Wixela Inhub 1-24 Inhub 250-50 00:00: 250-50 MCG/DOSE 00 MCG/DOSE Inhalation Inhalation Aerosol Aerosol Powder Powder Breath Breath Activated Activated Quantity: 60 Refills: 0 Start : 9Active Vitamin 2019 No 1000 Vitamin B-12 1-16 B-12 00:00: 00 Vitamin No 1000 Vitamin B-12 1-16 B-12 00:00: 00 Vitamin 2017-10 No 1000 Vitamin B-12 2-14 B-12 00:00: 00 Vitamin 2017-10 No 1000 Vitamin B-12 2-14 B-12 00:00: 00 Myrbetriq 2017-10 No Dalton Myrbetriq 50 MG Oral 0-26 Timi MD 50 MG Oral Tablet 00:00: Tablet Extended 00 Extended Release 24 Release 24 Hour Hour TAKE ONE TABLET BY MOUTH EVERY DAY Quantity: 90 Refills: 3 Dalton Capellan MD Start : 8Active Myrbetriq 2017-10 Yes Dalton Myrbetriq 50 MG Oral 0-26 Timi MD 50 MG Oral Tablet 00:00: Tablet Extended 00 Extended Release 24 Release 24 Hour Hour TAKE 1 TABLET BY MOUTH EVERY DAY - needs appt before further refills Quantity: 30 Refills: 1 Dalton Capellan MD Start : 8Active Vitamin 2017-10 No 1000 Vitamin B-12 0-24 B-12 00:00: 00 Vitamin 2017-10 No 1000 Vitamin B-12 0-24 B-12 00:00: 00 Vitamin 2018 No 1000 Vitamin B-12 9-26 B-12 00:00: 00 Vitamin No 1000 Vitamin B-12 9-26 B-12 00:00: 00 Iron No 400mg Iron Dextran 8-31 Dextran 00:00: 00 Sodium 2018- No 30mL Sodium Chloride 8-31 Chloride 00:00: 00 Meloxicam Yes Meloxicam 7.5 MG Oral 8-24 7.5 MG Tablet 00:00: Oral 00 Tablet Quantity: 90 Refills: 0 Start : 8Active Vitamin No 1000 Vitamin B-12 8-24 B-12 00:00: 00 Vitamin 2018-0 No 1000 Vitamin B-12 824 B-12 00:00: 00 Iron 2018-0 No 400mg Iron Dextran 8-24 Dextran 00:00: 00 Sodium 2018-0 No 30mL Sodium Chloride 8-24 Chloride 00:00: 00 Iron 2018-0 No 400mg Iron Dextran 8-17 Dextran 00:00: 00 Sodium 2018-0 No 30mL Sodium Chloride 8-17 Chloride 00:00: 00 Iron 2018-0 No 375mg Iron Dextran 8-10 Dextran 00:00: 00 Sodium 2018-0 No 250mL Sodium Chloride 8-10 Chloride 00:00: 00 Vitamin 2018-0 No 1000 Vitamin B-12 24 B-12 00:00: 00 Vitamin 2018-0 No 1000 Vitamin B-12 24 B-12 00:00: 00 Symbicort 2017-0 Yes Symbicort 160-4.5 6-29 160-4.5 MCG/ACT 00:00: MCG/ACT Inhalation 00 Inhalation Aerosol Aerosol Quantity: 10 Refills: 0 Start : 8Active Omeprazole Yes Omeprazole 40 MG Oral 6-28 40 MG Oral Capsule 00:00: Capsule Delayed 00 Delayed Release Release Quantity: 30 Refills: 0 Start : 8Active Montelukast Yes Montelukas Sodium 10 - t Sodium MG Oral 00:00: 10 MG Oral Tablet 00 Tablet Quantity: 30 Refills: 0 Start : 8Active Levocetiriz Yes Levocetiri ine 6- zine Dihydrochlo 00:00: Dihydrochl ride 5 MG 00 oride 5 MG Oral Tablet Oral Tablet Quantity: 90 Refills: 0 Start : 8Active Diclofenac Yes Diclofenac Sodium 1 % 28 Sodium 1 % GEL 00:00: GEL 00 Quantity: 100 Refills: 0 Start : 8Active ALPRAZolam Yes ALPRAZolam 0.25 MG -28 0.25 MG Oral Tablet 00:00: Oral 00 Tablet Quantity: 30 Refills: 0 Start : 8Active Cyclobenzap Yes Cyclobenza rine HCl - 6-28 veronica HCl 5 MG Oral 00:00: - 5 MG Tablet 00 Oral Tablet Quantity: 30 Refills: 0 Start : 8Active Escitalopra Yes Escitalopr m Oxalate 6-28 am Oxalate 10 MG Oral 00:00: 10 MG Oral Tablet 00 Tablet Quantity: 30 Refills: 0 Start : 8Active Vitamin 2017-0 No 1000 Vitamin B-12 03-25 B-12 00:00: 00 Vitamin 2018-0 No 1000 Vitamin B-12 6 B-12 00:00: 00 Fluticasone 2017-0 Yes Fluticason Propionate 5-30 e 50 MCG/ACT 00:00: Propionate Nasal 00 50 MCG/ACT Suspension Nasal Suspension Quantity: 48 Refills: 0 Start : 8Active Vitamin 0 No 1000 Vitamin B-12 02-22 B-12 00:00: 00 Vitamin 2017-0 No 1000 Vitamin B-12 02-22 B-12 00:00: 00 busPIRone 2017-0 Yes busPIRone HCl - 10 MG 3-26 HCl - 10 Oral Tablet 00:00: MG Oral 00 Tablet Quantity: 60 Refills: 0 Start : 8Active Vitamin 0 No 1000 Vitamin B-12 12-28 B-12 00:00: 00 Vitamin 2017-0 No 1000 Vitamin B-12 12-28 B-12 00:00: 00 Oxybutynin 2017-0 Yes Oxybutynin Chloride 5 3-09 Chloride 5 MG Oral 00:00: MG Oral Tablet 00 Tablet Quantity: 90 Refills: 0 Start : 25-Dec-2017 Active Simvastatin 2017-0 Yes Simvastati 20 MG Oral 3-07 n 20 MG Tablet 00:00: Oral 00 Tablet Quantity: 90 Refills: 0 Start : 23-Dec-2017 Active metFORMIN 2017-0 Yes metFORMIN HCl - 500 3-07 HCl - 500 MG Oral 00:00: MG Oral Tablet 00 Tablet Quantity: 180 Refills: 0 Start : 23-Dec-2017 Active Vitamin 2017-0 No 1000 Vitamin B-12 2-12 B-12 00:00: 00 Vitamin 2018-0 No 1000 Vitamin B-12 2-12 B-12 00:00: 00 Vitamin 2018-0 No 1000 Vitamin B-12 1 B-12 00:00: 00 Vitamin 2018-0 No 1000 Vitamin B-12 10-29 B-12 00:00: 00 traZODone 2017-1 Yes traZODone HCl - 50 MG 2-27 HCl - 50 Oral Tablet 00:00: MG Oral 00 Tablet Quantity: 90 Refills: 0 Start : 7Active Vitamin 2017-1 No 1000 Vitamin B-12 2-14 B-12 00:00: 00 Vitamin 2017-1 No 1000 Vitamin B-12 2-14 B-12 00:00: 00 Vitamin 2017-1 No 1000 Vitamin B-12 1-08 B-12 00:00: 00 Vitamin 2017-1 No 1000 Vitamin B-12 1-08 B-12 00:00: 00 Vitamin 2017-0 No 1000 Vitamin B-12 9-20 B-12 00:00: 00 Vitamin 2017-0 No 1000 Vitamin B-12 9-20 B-12 00:00: 00 Vitamin 2017-0 No 1000 Vitamin B-12 6-28 B-12 00:00: 00 Vitamin 2017-0 No 1000 Vitamin B-12 6-28 B-12 00:00: 00 Vitamin 2017-0 No 1000 Vitamin B-12 5-31 B-12 00:00: 00 Vitamin 2017-0 No 1000 Vitamin B-12 5-31 B-12 00:00: 00 Vitamin 2017-0 No 1000 Vitamin B-12 5-03 B-12 00:00: 00 Vitamin 2017-0 Yes 1000 Vitamin B-12 5-03 B-12 00:00: 00 Cyanocobala 2017-0 No 1000 Cyanocobal min 3-08 vázquez 00:00: 00 Cyanocobala 2017-0 No 1000 Cyanocobal min 2-08 vázquez 00:00: 00 Cyanocobala 2017-0 No 1000 Cyanocobal min 1-11 vázquez 00:00: 00 Cyanocobala 2016-1 No 1000 Cyanocobal min 2-14 vázquez 00:00: 00 Cyanocobala 2016-1 No 1000 Cyanocobal min 1-16 vázquez 00:00: 00 Cyanocobala 2015-1 No 1000 Cyanocobal min 0-19 vázquez 00:00: 00 Cyanocobala 2016-0 No 1000 Cyanocobal min 9-21 vázquez 00:00: 00 Iron 2016-0 No 800mg Iron Dextran 8-24 Dextran 00:00: 00 Sodium 2016-0 No 250mL Sodium Chloride 8-24 Chloride 00:00: 00 Iron 2016-0 No 800mg Iron Dextran 8-17 Dextran 00:00: 00 Sodium 2016-0 No 30mL Sodium Chloride 8-17 Chloride 00:00: 00 Cyanocobala 2016-0 No 1000 Cyanocobal min 8-16 vázquez 00:00: 00 Cyanocobala 2016-0 No 1000 Cyanocobal min 8-15 vázquez 00:00: 00 Cyanocobala 2016-0 No 1000 Cyanocobal min 8-12 vázquez 00:00: 00 Cyanocobala 2016-0 No 1000 Cyanocobal min 8-11 vázquez 00:00: 00 Cyanocobala 2016-0 No 1000 Cyanocobal min 8-10 vázquez 00:00: 00 Iron 2016-0 No 800mg Iron Dextran 8-10 Dextran 00:00: 00 Sodium 2016-0 No 30mL Sodium Chloride 8-10 Chloride 00:00: 00 Cyanocobala 2016-0 No 1000 Cyanocobal min 8-09 vázquez 00:00: 00 Cyanocobala 2016-0 No 1000 Cyanocobal min 8-08 vázquez 00:00: 00 Cyanocobala 2016-0 No 1000 Cyanocobal min 8-05 vázquez 00:00: 00 Cyanocobala 2016-0 No 1000 Cyanocobal min 8-04 vázquez 00:00: 00 Cyanocobala 2016-0 No 1000 Cyanocobal min 8-03 vázquez 00:00: 00 Sodium 2016-0 No 70mL Sodium Chloride 8-03 Chloride 00:00: 00 Iron 2016-0 2018- No 25mg Iron Dextran 8-03 08-31 Dextran 00:00: 00:00 00 :00 Infed 2016-0 2016- No 775mg Infed 8 08- 00:00: 00:00 00 :00 Cyanocobala 2016-0 No 1000mg Cyanocobal min 7-25 vázquez 00:00: 00 Cyanocobala 2013-1 No 1000mg Cyanocobal min 2-26 vázquez 00:00: 00 Cyanocobala 2013-1 No 1000mg Cyanocobal min 1-25 vázquez 00:00: 00 Cyanocobala 2012-1 2017- No 1000mg Cyanocobal min 0-23 03-08 vázquez 00:00: 00:00 00 :00 Feraheme 2013-0 No 510mg Feraheme 6-21 00:00: 00 Sodium 2013-0 No 50mL Sodium Chloride 6-21 Chloride 00:00: 00 Sodium 2013-0 No 250mL Sodium Chloride 6-13 Chloride 00:00: 00 Sodium 2017- No 30mL Chloride 03-31 00:00: 00:00 00 :00 Feraheme 2012- No 510mg Feraheme 03-31 00:00: 00:00 00 :00 acetaminoph No 2 Q6H acetaminop en 500 mg hen 500 mg tablet Take tablet 2 tablets Take 2 every 6 tablets hours by every 6 oral route hours by as needed. oral route as needed. Advair No 1puff(s BID Advair Diskus 250 ) Diskus 250 mcg-50 mcg-50 mcg/dose mcg/dose powder for powder for inhalation inhalation Inhale 1 Inhale 1 puff twice puff twice a day by a day by inhalation inhalation route. route. alprazolam No 1 Q1D alprazolam 0.25 mg 0.25 mg tablet Take tablet 1 tablet Take 1 every day tablet by oral every day route as by oral needed for route as 30 days. needed for 30 days. amoxicillin No amoxicilli 500 mg n 500 mg capsule as capsule as directed directed for dental for dental work work benzonatate No 1capsul TID benzonatat 100 mg e(s) e 100 mg capsule capsule Take 1 Take 1 capsule 3 capsule 3 times a day times a by oral day by route. oral route. cyclobenzap No cyclobenza rine 10 mg veronica 10 tablet 1 by mg tablet mouth three 1 by mouth times daily three times daily metformin No metformin 500 mg 500 mg tablet 1 by tablet 1 mouth twice by mouth daily twice daily montelukast No 1 Q1D montelukas 10 mg t 10 mg tablet Take tablet 1 tablet Take 1 every day tablet by oral every day route for by oral 30 days. route for 30 days. omeprazole No 1capsul Q1D omeprazole 40 mg e(s) 40 mg capsule,del capsule,de ayed layed release release Take 1 Take 1 capsule capsule every day every day by oral by oral route for route for 30 days. 30 days. tramadol 50 No 1 Q6H tramadol mg tablet 50 mg Take 1 tablet tablet Take 1 every 6 tablet hours by every 6 oral route hours by as needed. oral route as needed. ondansetron No ondansetro HCl 4 mg n HCl 4 mg tablet 1 tablet 1 tablet po tablet po prn prn oxycodone-a No oxycodone- cetaminophe acetaminop n 7.5 hen 7.5 mg-325 mg mg-325 mg tablet tablet Wixela No Wixela Inhub 250 Inhub 250 mcg-50 mcg-50 mcg/dose mcg/dose powder for powder for inhalation inhalation 1 puff 1 puff twice daily twice daily traMADol Yes traMADol HCl TABS HCl TABS Refills: 0 Active Anoro Yes Anoro Ellipta Ellipta AEPB AEPB Refills: 0 Active Advair Yes 1 Diskus busPIRone Yes 1 HCl Cetirizine Yes 1 HCl Escitalopra Yes 1 m Oxalate Flexeril Yes 1 Gabapentin Yes 1 Levocetiriz Yes 1 ine Dihydrochlo ride Meloxicam Yes 1 MetFORMIN Yes 1 HCl Myrbetriq Yes 1 Pantoprazol Yes 1 e Sodium Simvastatin Yes 1 Vitamin C Yes 1 Xanax Yes 1 Yuvafem Yes 1 Benzonatate 2020- No 1 03-29 17:07 :34 Clotrimazol 2020- No 1 e-Betametha 03-29 sone 17:07 :44 EpiPen 2020- No .3mg 03-29 17:07 :51 Fluticasone 2020- No 1 Propionate 03-29 17:08 :11 Montelukast 2020- No 1 Sodium 03-29 17:08 :23 Omeprazole 2020- No 1 03-29 17:08 :39 TraMADol 2019- No 1 HCl 03-29 17:08 :48 Vicodin 2020- No 1 03-29 17:09 :01 Vitamin D 2020- No 1 (Ergocalcif 03-29 pedro) 17:08 :56 Acetaminoph 2015- No 1 en 05-12 16:16 :34 Advair 2015- No 1 Diskus 05-12 16:16 :42 CeleXA 2015- No 1 05-12 16:16 :49 Ferrous 2015- No 1 Sulfate 05-12 16:16 :59 VESIcare 2015- No 1 05-12 16:17 :16 Cymbalta 2012- No 1 03-22 10:34 :04 Problems Condition Condition Condition Status Onset Resolution Last Treatin g Comments Name Details Category Date Date Treatment Clinician Date Pain of Pain of Problem Active 2018-10 right wrist Right Wrist 11-13 00:00: 00 Closed Closed Problem Active 2018-10 Colles' Colles' 1-21 fracture Fracture 00:00: 00 Intestinal Intestinal Diagnosis active malabsorpti malabsorpti 7-24 on on 00:00: 00 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 0-23 due to due to 00:00: vitamin vitamin 00 B>12< B>12< deficiency deficiency Chronic Chronic Diagnosis active kidney kidney 6- disease disease 00:00: stage 2 stage 2 00 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 diabetes Diabetes mellitus Mellitus Hypercholes Hypercholes Problem Active terolemia terolemia Obesity Obesity Problem Active Anxiety Anxiety Problem Active Mixed Mixed Problem Active anxiety and Anxiety and depressive Depressive disorder Disorder Chronic Chronic Problem Active pain Pain syndrome Syndrome Chronic Chronic Problem Active obstructive Obstructive lung Lung disease Disease Gastroesoph Gastroesoph Problem Active ageal ageal reflux Reflux disease Disease Low back Low Back Problem Active pain Pain Allergic Allergic Problem Active disposition Disposition Overactive Overactive Problem Active bladder Bladder Incomplete Incomplete Problem Active bladder bladder emptying emptying Gastroesoph Gastroesoph Problem Active ageal ageal reflux reflux disease disease without without esophagitis esophagitis Voice Voice Problem Active disturbance disturbance Tinnitus, Tinnitus, Problem Active bilateral bilateral Atrophic Atrophic Problem Active vaginitis vaginitis Frequency Frequency Problem Active of of urination urination Mixed Mixed Problem Active incontinenc incontinenc e urge and e urge and stress stress (male)(fema (male)(fema le) le) Nocturia Nocturia Problem Active Procedures Procedure Date / Time Performed Performing Clinician Devic e RADIOLOGIC EXAM WRIST 3 VIEWS 2019-12-05 00:00:00 RADIOLOGIC EXAM WRIST 3 VIEWS 2019-10-24 00:00:00 RADIOLOGIC EXAM WRIST 3 VIEWS 2019-09-26 00:00:00 Open Treatment, Distal Radial 2019-09-13 00:00:00 Intra-articular Fracture or Epiphyseal Separation (Surg) Knee Replacement 2017-10-19 00:00:00 Knee Replacement 2017-07-19 00:00:00 Colonoscopy 2016-10-19 00:00:00 Bone density 2012-10-19 00:00:00 Back Surgery 2008-10-19 00:00:00 Neck Surgery 2007-10-19 00:00:00 gastric bypass back surgeries neck surgeries vocal cord surgery Gallbladder removal appendectomy hysterectomy colonoscopy Hysterectomy History of Tonsillectomy History of Cholecystectomy History of Hysterectomy History of Knee surgery History of Back surgery History of Gastric bypass surgery History of Neck surgery Results Test Description Test Time Test Comments Text Results Atomic Results Result Comments Creatinine 2020-09-12 14:30:00 Test Item Value Reference Range Comments Creatinine (test code = Creatinine) 1.0700 mg/dL 0.5700-1.000 0 Cr Clearance (Est) (test code = Cr Clearance 103.3700 75. 0000-115.0000 (Est)) Glucose (test code = Glucose) 209.0000 mg/dL 65.0000-99.0000 BUN (test code = BUN) 17.0000 mg/dL 8.0000-27.0000 eGFR Aay-Zpgxvtk-Fktbmaby (test code = eGFR 55.0000 Ffj-Jodeosn-Kcuokoem) eGFR -Cymro (test code = eGFR 63.0000 -Cymro) BUN/Creat Ratio (test code = BUN/Creat Ratio) 16.0000 12 .0000-28.0000 Sodium (test code = Sodium) 142.0000 mmol/L 134.0000-144.0000 Potassium (test code = Potassium) 5.0000 mmol/L 3.5000-5.2000 Chloride (test code = Chloride) 104.0000 mmol/L 96.0000-106.0000 CO2 (test code = CO2) 20.0000 mmol/L 20.0000-29.0000 Calcium (test code = Calcium) 9.5000 mg/dL 8.7000-10.3000 Protein, Total (test code = Protein, Total) 6.5000 g/dL 6.00 00-8.5000 Albumin (test code = Albumin) 4.5000 g/dL 3.8000-4.8000 Globulin (test code = Globulin) 2.0000 g/dL 1.5000-4.5000 A/G Ratio (test code = A/G Ratio) 2.3000 1.2000-2.2000 Bilirubin, Total (test code = Bilirubin, Total) 0.2000 mg/dL 0.0000-1.2000 Alkaline Phosphatase (test code = Alkaline 71.0000 39.00 00-117.0000 Phosphatase) AST (SGOT) (test code = AST (SGOT)) 14.0000 0.0000-40.00 00 ALT (SGPT) (test code = ALT (SGPT)) 13.0000 0.0000-32.00 00 Iron, Total (test code = Iron, Total) 68.0000 27.0000-13 9.0000 TIBC (test code = TIBC) 328.0000 250.0000-450.0000 UIBC (test code = UIBC) 260.0000 118.0000-369.0000 % Iron Saturation (test code = % Iron Saturation) 21.0000 % 15.0000-55.0000 Ferritin (test code = Ferritin) 210.0000 ng/mL 15.0000-150.0000 [id number] 14:12:00 Test Item Value Reference Range Comments WBC (test code = WBC) 6.2000 4.0000-10.0000 Lymphocytes % (test code = Lymphocytes %) 27.8000 % 22.400 0-43.6000 MID% (test code = MID%) 6.1000 % .1999- Neutrophils % (test code = Neutrophils %) 66.1000 % 48.900 0-69.9000 Lymphocytes (test code = Lymphocytes) 1.7000 1.2000-3.2 000 MID (test code = MID) 0.4000 0.1000-1.1000 Neutrophils (test code = Neutrophils) 4.1000 1.5000-6.7 000 RBC (test code = RBC) 4.6500 3.7000-4.9000 HGB (test code = HGB) 13.5000 g/dL 11.2000-18.0000 HCT (test code = HCT) 41.6000 % 34.0000-44.0000 MCV (test code = MCV) 89.4000 fL 80.0000-94.0000 MCH (test code = MCH) 29.0000 pg 27.0000-34.0000 MCHC (test code = MCHC) 32.5000 g/dL 31.5000-36.0000 RDW (test code = RDW) 14.8000 11.0000-18.0000 PLT (test code = PLT) 240.0000 140.0000-440.0000 MPV (test code = MPV) 8.0000 fL 6.8000-10.6000 [id number] 13:00:00 Test Item Value Reference Range Comments WBC (test code = WBC) 6.5000 4.0000-10.0000 Lymphocytes % (test code = Lymphocytes %) 32.1000 % 22.400 0-43.6000 MID% (test code = MID%) 5.9000 % .1999- Neutrophils % (test code = Neutrophils %) 62.0000 % 48.900 0-69.9000 Lymphocytes (test code = Lymphocytes) 2.1000 1.2000-3.2 000 MID (test code = MID) 0.4000 0.1000-1.1000 Neutrophils (test code = Neutrophils) 4.0000 1.5000-6.7 000 RBC (test code = RBC) 4.5400 3.7000-4.9000 HGB (test code = HGB) 13.3000 g/dL 11.2000-18.0000 HCT (test code = HCT) 40.2000 % 34.0000-44.0000 MCV (test code = MCV) 88.6000 fL 80.0000-94.0000 MCH (test code = MCH) 29.4000 pg 27.0000-34.0000 MCHC (test code = MCHC) 33.2000 g/dL 31.5000-36.0000 RDW (test code = RDW) 14.4000 11.0000-18.0000 PLT (test code = PLT) 235.0000 140.0000-440.0000 MPV (test code = MPV) 7.7000 fL 6.8000-10.6000 [id number] 13:15:00 Test Item Value Reference Range Comments WBC (test code = WBC) 5.7000 4.0000-10.0000 Lymphocytes % (test code = Lymphocytes %) 28.0000 % 22.400 0-43.6000 MID% (test code = MID%) 6.5000 % 1.2000-11.2000 Neutrophils % (test code = Neutrophils %) 65.5000 % 48.900 0-69.9000 Lymphocytes (test code = Lymphocytes) 1.6000 1.2000-3.2 000 MID (test code = MID) 0.4000 0.1000-1.1000 Neutrophils (test code = Neutrophils) 3.7000 1.5000-6.7 000 RBC (test code = RBC) 4.5200 3.7000-4.9000 HGB (test code = HGB) 13.1000 g/dL 11.2000-18.0000 HCT (test code = HCT) 40.5000 % 34.0000-44.0000 MCV (test code = MCV) 89.5000 fL 80.0000-94.0000 MCH (test code = MCH) 29.1000 pg 27.0000-34.0000 MCHC (test code = MCHC) 32.4000 g/dL 31.5000-36.0000 RDW (test code = RDW) 14.1000 11.0000-18.0000 PLT (test code = PLT) 219.0000 140.0000-440.0000 MPV (test code = MPV) 8.4000 fL 6.8000-10.6000 MID%2020-07-19 13:15:00 Test Item Value Reference Range Comments MID% (test code = MID%) 6.5000 % .2000-11.1999 Neutrophils % (test code = Neutrophils %) 65.5000 % 48.900 0-69.9000 RDW (test code = RDW) 14.1000 11.0000-18.0000 Lymphocytes % (test code = Lymphocytes %) 28.0000 % 22.400 0-43.6000 HCT (test code = HCT) 40.5000 % 34.0000-44.0000 MCH (test code = MCH) 29.1000 pg 27.0000-34.0000 MPV (test code = MPV) 8.4000 fL 6.8000-10.6000 MCV (test code = MCV) 89.5000 fL 80.0000-94.0000 MCHC (test code = MCHC) 32.4000 g/dL 31.5000-36.0000 PLT (test code = PLT) 219.0000 140.0000-440.0000 WBC (test code = WBC) 5.7000 4.0000-10.0000 RBC (test code = RBC) 4.5200 3.7000-4.9000 Lymphocytes (test code = Lymphocytes) 1.6000 1.2000-3.2 000 MID (test code = MID) 0.4000 0.1000-1.1000 Neutrophils (test code = Neutrophils) 3.7000 1.5000-6.7 000 HGB (test code = HGB) 13.1000 g/dL 11.2000-18.0000 [id number] 12:30:00 Test Item Value Reference Range Comments HGB (test code = HGB) 12.1000 g/dL 11.2000-18.0000 Neutrophils (test code = Neutrophils) 3.6000 1.5000-6.7 000 MID (test code = MID) 0.4000 0.1000-1.1000 Lymphocytes (test code = Lymphocytes) 1.3000 1.2000-3.2 000 RBC (test code = RBC) 4.0300 3.7000-4.9000 WBC (test code = WBC) 5.3000 4.0000-10.0000 PLT (test code = PLT) 230.0000 140.0000-440.0000 MCHC (test code = MCHC) 34.3000 g/dL 31.5000-36.0000 MCV (test code = MCV) 87.7000 fL 80.0000-94.0000 MPV (test code = MPV) 7.7000 fL 6.8000-10.6000 MCH (test code = MCH) 30.1000 pg 27.0000-34.0000 HCT (test code = HCT) 35.4000 % 34.0000-44.0000 Neutrophils % (test code = Neutrophils %) 68.6000 % 48.900 0-69.9000 Lymphocytes % (test code = Lymphocytes %) 25.4000 % 22.400 0-43.6000 RDW (test code = RDW) 14.1000 11.0000-18.0000 MID% (test code = MID%) 6.0000 % - [id number] 12:30:00 Test Item Value Reference Range Comments WBC (test code = WBC) 5.3000 4.0000-10.0000 Lymphocytes % (test code = Lymphocytes %) 25.4000 % 22.400 0-43.6000 MID% (test code = MID%) 6.0000 % .1999- Neutrophils % (test code = Neutrophils %) 68.6000 % 48.900 0-69.9000 Lymphocytes (test code = Lymphocytes) 1.3000 1.2000-3.2 000 MID (test code = MID) 0.4000 0.1000-1.1000 Neutrophils (test code = Neutrophils) 3.6000 1.5000-6.7 000 RBC (test code = RBC) 4.0300 3.7000-4.9000 HGB (test code = HGB) 12.1000 g/dL 11.2000-18.0000 HCT (test code = HCT) 35.4000 % 34.0000-44.0000 MCV (test code = MCV) 87.7000 fL 80.0000-94.0000 MCH (test code = MCH) 30.1000 pg 27.0000-34.0000 MCHC (test code = MCHC) 34.3000 g/dL 31.5000-36.0000 RDW (test code = RDW) 14.1000 11.0000-18.0000 PLT (test code = PLT) 230.0000 140.0000-440.0000 MPV (test code = MPV) 7.7000 fL 6.8000-10.6000 [id number] 13:07:00 Test Item Value Reference Range Comments MID% (test code = MID%) 5.8000 % 1.1999-.1999 RDW (test code = RDW) 14.9000 11.0000-18.0000 Lymphocytes % (test code = Lymphocytes %) 20.3000 % 22.400 0-43.6000 Neutrophils % (test code = Neutrophils %) 73.9000 % 48.900 0-69.9000 HCT (test code = HCT) 40.6000 % 34.0000-44.0000 MCH (test code = MCH) 29.6000 pg 27.0000-34.0000 MPV (test code = MPV) 7.7000 fL 6.8000-10.6000 MCV (test code = MCV) 91.5000 fL 80.0000-94.0000 MCHC (test code = MCHC) 32.4000 g/dL 31.5000-36.0000 PLT (test code = PLT) 249.0000 140.0000-440.0000 WBC (test code = WBC) 8.9000 4.0000-10.0000 RBC (test code = RBC) 4.4300 3.7000-4.9000 Lymphocytes (test code = Lymphocytes) 1.8000 1.2000-3.2 000 MID (test code = MID) 0.6000 0.1000-1.1000 Neutrophils (test code = Neutrophils) 6.5000 1.5000-6.7 000 HGB (test code = HGB) 13.1000 g/dL 11.1999-18.0000 [id number] 13:07:00 Test Item Value Reference Range Comments WBC (test code = WBC) 8.9000 4.0000-10.0000 Lymphocytes % (test code = Lymphocytes %) 20.3000 % 22.400 0-43.6000 MID% (test code = MID%) 5.8000 % .1999- Neutrophils % (test code = Neutrophils %) 73.9000 % 48.900 0-69.9000 Lymphocytes (test code = Lymphocytes) 1.8000 1.2000-3.2 000 MID (test code = MID) 0.6000 0.1000-1.1000 Neutrophils (test code = Neutrophils) 6.5000 1.5000-6.7 000 RBC (test code = RBC) 4.4300 3.7000-4.9000 HGB (test code = HGB) 13.1000 g/dL 11.2000-18.0000 HCT (test code = HCT) 40.6000 % 34.0000-44.0000 MCV (test code = MCV) 91.5000 fL 80.0000-94.0000 MCH (test code = MCH) 29.6000 pg 27.0000-34.0000 MCHC (test code = MCHC) 32.4000 g/dL 31.5000-36.0000 RDW (test code = RDW) 14.9000 11.0000-18.0000 PLT (test code = PLT) 249.0000 140.0000-440.0000 MPV (test code = MPV) 7.7000 fL 6.8000-10.6000 [id number] 13:32:00 Test Item Value Reference Range Comments HGB (test code = HGB) 13.4000 g/dL 11.2000-18.0000 MID (test code = MID) 0.4000 0.1000-1.1000 Lymphocytes (test code = Lymphocytes) 1.8000 1.2000-3.2 000 RBC (test code = RBC) 4.4400 3.7000-4.9000 WBC (test code = WBC) 6.3000 4.0000-10.0000 Neutrophils (test code = Neutrophils) 4.1000 1.5000-6.7 000 PLT (test code = PLT) 225.0000 140.0000-440.0000 MCHC (test code = MCHC) 33.7000 g/dL 31.5000-36.0000 MCV (test code = MCV) 89.9000 fL 80.0000-94.0000 MPV (test code = MPV) 7.9000 fL 6.8000-10.6000 MCH (test code = MCH) 30.3000 pg 27.0000-34.0000 HCT (test code = HCT) 39.9000 % 34.0000-44.0000 Lymphocytes % (test code = Lymphocytes %) 28.7000 % 22.400 0-43.6000 RDW (test code = RDW) 14.5000 11.0000-18.0000 MID% (test code = MID%) 6.1000 % 1.1999-.1999 Neutrophils % (test code = Neutrophils %) 65.2000 % 48.900 0-69.9000 [id number] 13:32:00 Test Item Value Reference Range Comments WBC (test code = WBC) 6.3000 4.0000-10.0000 Lymphocytes % (test code = Lymphocytes %) 28.7000 % 22.400 0-43.6000 MID% (test code = MID%) 6.1000 % .1999- Neutrophils % (test code = Neutrophils %) 65.2000 % 48.900 0-69.9000 Lymphocytes (test code = Lymphocytes) 1.8000 1.2000-3.2 000 MID (test code = MID) 0.4000 0.1000-1.1000 Neutrophils (test code = Neutrophils) 4.1000 1.5000-6.7 000 RBC (test code = RBC) 4.4400 3.7000-4.9000 HGB (test code = HGB) 13.4000 g/dL 11.2000-18.0000 HCT (test code = HCT) 39.9000 % 34.0000-44.0000 MCV (test code = MCV) 89.9000 fL 80.0000-94.0000 MCH (test code = MCH) 30.3000 pg 27.0000-34.0000 MCHC (test code = MCHC) 33.7000 g/dL 31.5000-36.0000 RDW (test code = RDW) 14.5000 11.0000-18.0000 PLT (test code = PLT) 225.0000 140.0000-440.0000 MPV (test code = MPV) 7.9000 fL 6.8000-10.6000 Alkaline [id number] 10:47:00 Test Item Value Reference Range Comments Alkaline Phosphatase (test code = Alkaline 65.0000 42.00 00-141.0000 Phosphatase) Potassium (test code = Potassium) 4.7000 mmol/L 3.6000-5.1000 Sodium (test code = Sodium) 138.0000 mmol/L 128.0000-145.0000 Chloride (test code = Chloride) 106.0000 mmol/L 96.0000-108.0000 CO2 (test code = CO2) 27.0000 mmol/L 18.0000-33.0000 AST (SGOT) (test code = AST (SGOT)) 11.0000 11.0000-37.0 000 ALT (SGPT) (test code = ALT (SGPT)) 10.0000 10.0000-47.0 000 Cr Clearance (Est) (test code = Cr 104.7100 75.0000-115.0 000 Clearance (Est)) eGFR -Cymro (test code = eGFR 61.0000 60.0000- 200.0000 -Cymro) eGFR Dgi-Pjbuvam-Dpjmwyjg (test code = 50.0000 60.0000-2 00.0000 eGFR Qbj-Pmhjosx-Gwbchhey) Protein, Total (test code = Protein, 6.3000 g/dL 6.4000-8.10 00 Total) Glucose (test code = Glucose) 78.0000 mg/dL 70.0000-118.0000 Creatinine (test code = Creatinine) 1.1000 mg/dL 0.5000-1.200 0 BUN (test code = BUN) 14.0000 mg/dL 7.0000-22.0000 Bilirubin, Total (test code = Bilirubin, 0.4000 mg/dL 0.0000- 1.6000 Total) Calcium (test code = Calcium) 9.2800 mg/dL 8.0000-10.3000 Albumin (test code = Albumin) 4.5000 g/dL 3.5000-5.5000 [id number] 10:47:00 Test Item Value Reference Range Comments Creatinine (test code = Creatinine) 1.1000 mg/dL 0.5000-1.200 0 Cr Clearance (Est) (test code = Cr 104.7100 75.0000-115.0 000 Clearance (Est)) Glucose (test code = Glucose) 78.0000 mg/dL 70.0000-118.0000 BUN (test code = BUN) 14.0000 mg/dL 7.0000-22.0000 Sodium (test code = Sodium) 138.0000 mmol/L 128.0000-145.0000 Potassium (test code = Potassium) 4.7000 mmol/L 3.6000-5.1000 Chloride (test code = Chloride) 106.0000 mmol/L 96.0000-108.0000 CO2 (test code = CO2) 27.0000 mmol/L 18.0000-33.0000 Calcium (test code = Calcium) 9.2800 mg/dL 8.0000-10.3000 Alkaline Phosphatase (test code = Alkaline 65.0000 42.00 00-141.0000 Phosphatase) ALT (SGPT) (test code = ALT (SGPT)) 10.0000 10.0000-47.0 000 AST (SGOT) (test code = AST (SGOT)) 11.0000 11.0000-37.0 000 Bilirubin, Total (test code = Bilirubin, 0.4000 mg/dL 0.0000- 1.6000 Total) Albumin (test code = Albumin) 4.5000 g/dL 3.5000-5.5000 Protein, Total (test code = Protein, 6.3000 g/dL 6.4000-8.10 00 Total) eGFR -Cymro (test code = eGFR 61.0000 60.0000- 200.0000 -Cymro) eGFR Plg-Uhkhuer-Pxmwwhka (test code = 50.0000 60.0000-2 00.0000 eGFR Xet-Tpfjmjo-Evbzgpac) [id number] 14:20:00 Test Item Value Reference Range Comments Globulin (test code = Globulin) 1.7000 g/dL 1.5000-4.5000 Albumin (test code = Albumin) 4.1000 g/dL 3.8000-4.8000 Calcium (test code = Calcium) 9.1000 mg/dL 8.7000-10.3000 BUN (test code = BUN) 15.0000 mg/dL 8.0000-27.0000 Bilirubin, Total (test code = Bilirubin, 0.3000 mg/dL 0.0000- 1.2000 Total) Glucose (test code = Glucose) 98.0000 mg/dL 65.0000-99.0000 Creatinine (test code = Creatinine) 1.0700 mg/dL 0.5700-1.000 0 TIBC (test code = TIBC) 297.0000 250.0000-450.0000 UIBC (test code = UIBC) 237.0000 118.0000-369.0000 Iron, Total (test code = Iron, Total) 60.0000 27.0000-13 9.0000 Protein, Total (test code = Protein, 5.8000 g/dL 6.0000-8.50 00 Total) Ferritin (test code = Ferritin) 210.0000 ng/mL 15.0000-150.0000 Cr Clearance (Est) (test code = Cr 107.6500 75.0000-115.0 000 Clearance (Est)) AST (SGOT) (test code = AST (SGOT)) 16.0000 0.0000-40.00 00 ALT (SGPT) (test code = ALT (SGPT)) 17.0000 0.0000-32.00 00 Chloride (test code = Chloride) 106.0000 mmol/L 96.0000-106.0000 CO2 (test code = CO2) 23.0000 mmol/L 20.0000-29.0000 Sodium (test code = Sodium) 143.0000 mmol/L 134.0000-144.0000 Potassium (test code = Potassium) 5.4000 mmol/L 3.5000-5.2000 eGFR Brf-Pvpdyrl-Glrddkgp (test code = 55.0000 eGFR Tnn-Ykonehg-Ipcdxfpk) BUN/Creat Ratio (test code = BUN/Creat 14.0000 12.0000-2 8.0000 Ratio) A/G Ratio (test code = A/G Ratio) 2.4000 1.1999-2.1999 eGFR -Cymro (test code = eGFR 63.0000 -Cymro) Alkaline Phosphatase (test code = Alkaline 61.0000 39.00 00-117.0000 Phosphatase) % Iron Saturation (test code = % Iron 20.0000 % 15.0000-55 .0000 Saturation) [id number] 14:20:00 Test Item Value Reference Range Comments Creatinine (test code = Creatinine) 1.0700 mg/dL 0.5700-1.000 0 Cr Clearance (Est) (test code = Cr 107.6500 75.0000-115.0 000 Clearance (Est)) Glucose (test code = Glucose) 98.0000 mg/dL 65.0000-99.0000 BUN (test code = BUN) 15.0000 mg/dL 8.0000-27.0000 eGFR Ldz-Xjjgvlb-Tzdwmvuk (test code = 55.0000 eGFR Qlf-Pbompkl-Grktbtzb) eGFR -Cymro (test code = eGFR 63.0000 -Cymro) BUN/Creat Ratio (test code = BUN/Creat 14.0000 12.0000-2 8.0000 Ratio) Sodium (test code = Sodium) 143.0000 mmol/L 134.0000-144.0000 Potassium (test code = Potassium) 5.4000 mmol/L 3.5000-52000 Chloride (test code = Chloride) 106.0000 mmol/L 96.0000-106.0000 CO2 (test code = CO2) 23.0000 mmol/L 20.0000-29.0000 Calcium (test code = Calcium) 9.1000 mg/dL 8.7000-10.3000 Protein, Total (test code = Protein, 5.8000 g/dL 6.0000-8.50 00 Total) Albumin (test code = Albumin) 4.1000 g/dL 3.8000-4.8000 Globulin (test code = Globulin) 1.7000 g/dL 1.5000-4.5000 A/G Ratio (test code = A/G Ratio) 2.4000 1.2000-2.2000 Bilirubin, Total (test code = Bilirubin, 0.3000 mg/dL 0.0000- 1.2000 Total) Alkaline Phosphatase (test code = Alkaline 61.0000 39.00 00-117.0000 Phosphatase) AST (SGOT) (test code = AST (SGOT)) 16.0000 0.0000-40.00 00 ALT (SGPT) (test code = ALT (SGPT)) 17.0000 0.0000-32.00 00 Iron, Total (test code = Iron, Total) 60.0000 27.0000-13 9.0000 TIBC (test code = TIBC) 297.0000 250.0000-450.0000 UIBC (test code = UIBC) 237.0000 118.0000-369.0000 % Iron Saturation (test code = % Iron 20.0000 % 15.0000-55 .0000 Saturation) Ferritin (test code = Ferritin) 210.0000 ng/mL 15.0000-150.0000 Lymphocytes %2020-03-29 13:58:00 Test Item Value Reference Range Comments Lymphocytes % (test code = Lymphocytes %) 27.5000 % 22.400 0-43.6000 HCT (test code = HCT) 38.9000 % 34.0000-44.0000 RDW (test code = RDW) 14.6000 11.0000-18.0000 Neutrophils % (test code = Neutrophils %) 66.7000 % 48.900 0-69.9000 MID% (test code = MID%) 5.8000 % 1.2000-11.2000 MCH (test code = MCH) 30.6000 pg 27.0000-34.0000 MCV (test code = MCV) 92.2000 fL 80.0000-94.0000 MPV (test code = MPV) 7.1000 fL 6.8000-10.6000 RBC (test code = RBC) 4.2100 3.7000-4.9000 WBC (test code = WBC) 5.6000 4.0000-10.0000 PLT (test code = PLT) 234.0000 140.0000-440.0000 Neutrophils (test code = Neutrophils) 3.7000 1.5000-6.7 000 Lymphocytes (test code = Lymphocytes) 1.5000 1.2000-3.2 000 MID (test code = MID) 0.4000 0.1000-1.1000 HGB (test code = HGB) 12.9000 g/dL 11.2000-18.0000 MCHC (test code = MCHC) 33.1000 g/dL 31.5000-36.0000 [id number] 13:58:00 Test Item Value Reference Range Comments WBC (test code = WBC) 5.6000 4.0000-10.0000 Lymphocytes % (test code = Lymphocytes %) 27.5000 % 22.400 0-43.6000 MID% (test code = MID%) 5.8000 % .2000-11.1999 Neutrophils % (test code = Neutrophils %) 66.7000 % 48.900 0-69.9000 Lymphocytes (test code = Lymphocytes) 1.5000 1.2000-3.2 000 MID (test code = MID) 0.4000 0.1000-1.1000 Neutrophils (test code = Neutrophils) 3.7000 1.5000-6.7 000 RBC (test code = RBC) 4.2100 3.7000-4.9000 HGB (test code = HGB) 12.9000 g/dL 11.2000-18.0000 HCT (test code = HCT) 38.9000 % 34.0000-44.0000 MCV (test code = MCV) 92.2000 fL 80.0000-94.0000 MCH (test code = MCH) 30.6000 pg 27.0000-34.0000 MCHC (test code = MCHC) 33.1000 g/dL 31.5000-36.0000 RDW (test code = RDW) 14.6000 11.0000-18.0000 PLT (test code = PLT) 234.0000 140.0000-440.0000 MPV (test code = MPV) 7.1000 fL 6.8000-10.6000 [id number] 14:04:00 Test Item Value Reference Range Comments HGB (test code = HGB) 13.5000 g/dL 11.2000-18.0000 MID (test code = MID) 0.6000 0.1000-1.1000 Lymphocytes (test code = Lymphocytes) 1.8000 1.2000-3.2 000 Neutrophils (test code = Neutrophils) 6.4000 1.5000-6.7 000 PLT (test code = PLT) 236.0000 140.0000-440.0000 WBC (test code = WBC) 8.8000 4.0000-10.0000 RBC (test code = RBC) 4.3700 3.7000-4.9000 MPV (test code = MPV) 8.2000 fL 6.8000-10.6000 MCV (test code = MCV) 92.4000 fL 80.0000-94.0000 MCHC (test code = MCHC) 33.4000 g/dL 31.5000-36.0000 MCH (test code = MCH) 30.9000 pg 27.0000-34.0000 MID% (test code = MID%) 5.7000 % 1.1999-11 Neutrophils % (test code = Neutrophils %) 73.3000 % 48.900 0-69.9000 RDW (test code = RDW) 14.0000 11.0000-18.0000 HCT (test code = HCT) 40.4000 % 34.0000-44.0000 Lymphocytes % (test code = Lymphocytes %) 21.0000 % 22.400 0-43.6000 [id number] 14:04:00 Test Item Value Reference Range Comments WBC (test code = WBC) 8.8000 4.0000-10.0000 Lymphocytes % (test code = Lymphocytes %) 21.0000 % 22.400 0-43.6000 MID% (test code = MID%) 5.7000 % - Neutrophils % (test code = Neutrophils %) 73.3000 % 48.900 0-69.9000 Lymphocytes (test code = Lymphocytes) 1.8000 1.2000-3.2 000 MID (test code = MID) 0.6000 0.1000-1.1000 Neutrophils (test code = Neutrophils) 6.4000 1.5000-6.7 000 RBC (test code = RBC) 4.3700 3.7000-4.9000 HGB (test code = HGB) 13.5000 g/dL 11.2000-18.0000 HCT (test code = HCT) 40.4000 % 34.0000-44.0000 MCV (test code = MCV) 92.4000 fL 80.0000-94.0000 MCH (test code = MCH) 30.9000 pg 27.0000-34.0000 MCHC (test code = MCHC) 33.4000 g/dL 31.5000-36.0000 RDW (test code = RDW) 14.0000 11.0000-18.0000 PLT (test code = PLT) 236.0000 140.0000-440.0000 MPV (test code = MPV) 8.2000 fL 6.8000-10.6000 Lymphocytes %2019-11-18 11:49:00 Test Item Value Reference Range Comments Lymphocytes % (test code = Lymphocytes %) 31.7000 % 22.400 0-43.6000 HCT (test code = HCT) 41.7000 % 34.0000-44.0000 RDW (test code = RDW) 14.5000 11.0000-18.0000 Neutrophils % (test code = Neutrophils %) 62.8000 % 48.900 0-69.9000 MID% (test code = MID%) 5.5000 % 1.1999-11.1999 MCH (test code = MCH) 30.0000 pg 27.0000-34.0000 MCHC (test code = MCHC) 31.8000 g/dL 31.5000-36.0000 MCV (test code = MCV) 94.1000 fL 80.0000-94.0000 MPV (test code = MPV) 8.9000 fL 6.8000-10.6000 RBC (test code = RBC) 4.4300 3.7000-4.9000 WBC (test code = WBC) 5.9000 4.0000-10.0000 PLT (test code = PLT) 198.0000 140.0000-440.0000 Neutrophils (test code = Neutrophils) 3.7000 1.5000-6.7 000 Lymphocytes (test code = Lymphocytes) 1.9000 1.2000-3.2 000 MID (test code = MID) 0.3000 0.1000-1.1000 HGB (test code = HGB) 13.3000 g/dL 11.1999-18.0000 [id number] 11:49:00 Test Item Value Reference Range Comments WBC (test code = WBC) 5.9000 4.0000-10.0000 Lymphocytes % (test code = Lymphocytes %) 31.7000 % 22.400 0-43.6000 MID% (test code = MID%) 5.5000 % 1.2000-11.2000 Neutrophils % (test code = Neutrophils %) 62.8000 % 48.900 0-69.9000 Lymphocytes (test code = Lymphocytes) 1.9000 1.2000-3.2 000 MID (test code = MID) 0.3000 0.1000-1.1000 Neutrophils (test code = Neutrophils) 3.7000 1.5000-6.7 000 RBC (test code = RBC) 4.4300 3.7000-4.9000 HGB (test code = HGB) 13.3000 g/dL 11.2000-18.0000 HCT (test code = HCT) 41.7000 % 34.0000-44.0000 MCV (test code = MCV) 94.1000 fL 80.0000-94.0000 MCH (test code = MCH) 30.0000 pg 27.0000-34.0000 MCHC (test code = MCHC) 31.8000 g/dL 31.5000-36.0000 RDW (test code = RDW) 14.5000 11.0000-18.0000 PLT (test code = PLT) 198.0000 140.0000-440.0000 MPV (test code = MPV) 8.9000 fL 6.8000-10.6000 [id number] 09:28:00 Test Item Value Reference Range Comments HGB (test code = HGB) 13.3000 g/dL 11.2000-18.0000 Neutrophils (test code = Neutrophils) 3.7000 1.5000-6.7 000 MID (test code = MID) 0.3000 0.1000-1.1000 Lymphocytes (test code = Lymphocytes) 1.8000 1.2000-3.2 000 PLT (test code = PLT) 226.0000 140.0000-440.0000 WBC (test code = WBC) 5.8000 4.0000-10.0000 RBC (test code = RBC) 4.4000 3.7000-4.9000 MPV (test code = MPV) 7.8000 fL 6.8000-10.6000 MCV (test code = MCV) 93.4000 fL 80.0000-94.0000 MCHC (test code = MCHC) 32.4000 g/dL 31.5000-36.0000 MCH (test code = MCH) 30.2000 pg 27.0000-34.0000 MID% (test code = MID%) 4.7000 % 1.1999-11.1999 Neutrophils % (test code = Neutrophils %) 63.1000 % 48.900 0-69.9000 RDW (test code = RDW) 14.6000 11.0000-18.0000 HCT (test code = HCT) 41.1000 % 34.0000-44.0000 Lymphocytes % (test code = Lymphocytes %) 32.2000 % 22.400 0-43.6000 [id number] 09:28:00 Test Item Value Reference Range Comments WBC (test code = WBC) 5.8000 4.0000-10.0000 Lymphocytes % (test code = Lymphocytes %) 32.2000 % 22.400 0-43.6000 MID% (test code = MID%) 4.7000 % .1999-11.1999 Neutrophils % (test code = Neutrophils %) 63.1000 % 48.900 0-69.9000 Lymphocytes (test code = Lymphocytes) 1.8000 1.2000-3.2 000 MID (test code = MID) 0.3000 0.1000-1.1000 Neutrophils (test code = Neutrophils) 3.7000 1.5000-6.7 000 RBC (test code = RBC) 4.4000 3.7000-4.9000 HGB (test code = HGB) 13.3000 g/dL 11.2000-18.0000 HCT (test code = HCT) 41.1000 % 34.0000-44.0000 MCV (test code = MCV) 93.4000 fL 80.0000-94.0000 MCH (test code = MCH) 30.2000 pg 27.0000-34.0000 MCHC (test code = MCHC) 32.4000 g/dL 31.5000-36.0000 RDW (test code = RDW) 14.6000 11.0000-18.0000 PLT (test code = PLT) 226.0000 140.0000-440.0000 MPV (test code = MPV) 7.8000 fL 6.8000-10.6000 Lymphocytes %2019-09-22 09:19:00 Test Item Value Reference Range Comments Lymphocytes % (test code = Lymphocytes %) 26.2000 % 22.400 0-43.6000 HCT (test code = HCT) 40.8000 % 34.0000-44.0000 RDW (test code = RDW) 14.1999 11.0000-18.0000 Neutrophils % (test code = Neutrophils %) 68.6000 % 48.900 0-69.9000 MID% (test code = MID%) 5.2000 % .1999- MCH (test code = MCH) 29.6000 pg 27.0000-34.0000 MCHC (test code = MCHC) 32.5000 g/dL 31.5000-36.0000 MCV (test code = MCV) 91.1000 fL 80.0000-94.0000 MPV (test code = MPV) 7.6000 fL 6.8000-10.6000 RBC (test code = RBC) 4.4800 3.7000-4.9000 WBC (test code = WBC) 7.4000 4.0000-10.0000 PLT (test code = PLT) 168.0000 140.0000-440.0000 Lymphocytes (test code = Lymphocytes) 1.9000 1.2000-3.2 000 MID (test code = MID) 0.4000 0.1000-1.1000 Neutrophils (test code = Neutrophils) 5.1000 1.5000-6.7 000 HGB (test code = HGB) 13.3000 g/dL .1999-18.0000 [id number] 09:19:00 Test Item Value Reference Range Comments WBC (test code = WBC) 7.4000 4.0000-10.0000 Lymphocytes % (test code = Lymphocytes %) 26.2000 % 22.400 0-43.6000 MID% (test code = MID%) 5.2000 % .1999-11 Neutrophils % (test code = Neutrophils %) 68.6000 % 48.900 0-69.9000 Lymphocytes (test code = Lymphocytes) 1.9000 1.2000-3.2 000 MID (test code = MID) 0.4000 0.1000-1.1000 Neutrophils (test code = Neutrophils) 5.1000 1.5000-6.7 000 RBC (test code = RBC) 4.4800 3.7000-4.9000 HGB (test code = HGB) 13.3000 g/dL 11.1999-18.0000 HCT (test code = HCT) 40.8000 % 34.0000-44.0000 MCV (test code = MCV) 91.1000 fL 80.0000-94.0000 MCH (test code = MCH) 29.6000 pg 27.0000-34.0000 MCHC (test code = MCHC) 32.5000 g/dL 31.5000-36.0000 RDW (test code = RDW) 14.2000 11.0000-18.0000 PLT (test code = PLT) 168.0000 140.0000-440.0000 MPV (test code = MPV) 7.6000 fL 6.8000-10.6000 glucose,[id number] 00:00:00 Test Item Value Reference Range Comments glucose,bedside (test code = glucose,bedside) 96 mg/dL 70 -110 [id number] 13:48:00 Test Item Value Reference Range Comments Albumin (test code = Albumin) 4.2000 g/dL 3.6000-4.8000 Globulin (test code = Globulin) 1.8000 g/dL 1.5000-4.5000 Glucose (test code = Glucose) 136.0000 mg/dL 65.0000-99.0000 BUN (test code = BUN) 15.0000 mg/dL 8.0000-27.0000 Bilirubin, Total (test code = Bilirubin, 0.3000 mg/dL 0.0000- 1.2000 Total) Calcium (test code = Calcium) 8.9000 mg/dL 8.7000-10.3000 Creatinine (test code = Creatinine) 0.7400 mg/dL 0.5700-1.000 0 UIBC (test code = UIBC) 240.0000 118.0000-369.0000 TIBC (test code = TIBC) 318.0000 250.0000-450.0000 Iron, Total (test code = Iron, Total) 78.0000 27.0000-13 9.0000 Protein, Total (test code = Protein, 6.0000 g/dL 6.0000-8.50 00 Total) Cr Clearance (Est) (test code = Cr 155.0900 75.0000-115.0 000 Clearance (Est)) Ferritin (test code = Ferritin) 165.0000 ng/mL 15.0000-150.0000 Potassium (test code = Potassium) 4.2000 mmol/L 3.5000-5.2000 Sodium (test code = Sodium) 139.0000 mmol/L 134.0000-144.0000 CO2 (test code = CO2) 20.0000 mmol/L 20.0000-29.0000 Chloride (test code = Chloride) 104.0000 mmol/L 96.0000-106.0000 AST (SGOT) (test code = AST (SGOT)) 17.0000 0.0000-40.00 00 ALT (SGPT) (test code = ALT (SGPT)) 20.0000 0.0000-32.00 00 eGFR -Cymro (test code = eGFR 99.0000 -Cymro) A/G Ratio (test code = A/G Ratio) 2.3000 1.2000-2.2000 BUN/Creat Ratio (test code = BUN/Creat 20.0000 12.0000-2 8.0000 Ratio) eGFR Nui-Aubupfx-Tbmrhlbo (test code = 86.0000 eGFR Yvh-Mlfogqk-Fzgalvom) Alkaline Phosphatase (test code = Alkaline 57.0000 39.00 00-117.0000 Phosphatase) % Iron Saturation (test code = % Iron 25.0000 % 15.0000-55 .0000 Saturation) [id number] 13:48:00 Test Item Value Reference Range Comments Creatinine (test code = Creatinine) 0.7400 mg/dL 0.5700-1.000 0 Cr Clearance (Est) (test code = Cr 155.0900 75.0000-115.0 000 Clearance (Est)) Glucose (test code = Glucose) 136.0000 mg/dL 65.0000-99.0000 BUN (test code = BUN) 15.0000 mg/dL 8.0000-27.0000 eGFR Mdc-Cyipcuk-Penzslgg (test code = 86.0000 eGFR Kom-Cqumdee-Jgmlacfk) eGFR -Cymro (test code = eGFR 99.0000 -Cymro) BUN/Creat Ratio (test code = BUN/Creat 20.0000 12.0000-2 8.0000 Ratio) Sodium (test code = Sodium) 139.0000 mmol/L 134.0000-144.0000 Potassium (test code = Potassium) 4.2000 mmol/L 3.5000-5.2000 Chloride (test code = Chloride) 104.0000 mmol/L 96.0000-106.0000 CO2 (test code = CO2) 20.0000 mmol/L 20.0000-29.0000 Calcium (test code = Calcium) 8.9000 mg/dL 8.7000-10.3000 Protein, Total (test code = Protein, 6.0000 g/dL 6.0000-8.50 00 Total) Albumin (test code = Albumin) 4.2000 g/dL 3.6000-4.8000 Globulin (test code = Globulin) 1.8000 g/dL 1.5000-4.5000 A/G Ratio (test code = A/G Ratio) 2.3000 1.2000-2.1999 Bilirubin, Total (test code = Bilirubin, 0.3000 mg/dL 0.0000- 1.2000 Total) Alkaline Phosphatase (test code = Alkaline 57.0000 39.00 00-117.0000 Phosphatase) AST (SGOT) (test code = AST (SGOT)) 17.0000 0.0000-40.00 00 ALT (SGPT) (test code = ALT (SGPT)) 20.0000 0.0000-32.00 00 Iron, Total (test code = Iron, Total) 78.0000 27.0000-13 9.0000 TIBC (test code = TIBC) 318.0000 250.0000-450.0000 UIBC (test code = UIBC) 240.0000 118.0000-369.0000 % Iron Saturation (test code = % Iron 25.0000 % 15.0000-55 .0000 Saturation) Ferritin (test code = Ferritin) 165.0000 ng/mL 15.0000-150.0000 Lymphocytes %2019-08-11 12:57:00 Test Item Value Reference Range Comments Lymphocytes % (test code = Lymphocytes %) 28.4000 % 22.400 0-43.6000 HCT (test code = HCT) 43.1000 % 34.0000-44.0000 MID% (test code = MID%) 5.1000 % 1.2000-11.1999 Neutrophils % (test code = Neutrophils %) 66.5000 % 48.900 0-69.9000 RDW (test code = RDW) 14.6000 11.0000-18.0000 MCH (test code = MCH) 29.9000 pg 27.0000-34.0000 MPV (test code = MPV) 7.5000 fL 6.8000-10.6000 MCV (test code = MCV) 92.7000 fL 80.0000-94.0000 MCHC (test code = MCHC) 32.2000 g/dL 31.5000-36.0000 RBC (test code = RBC) 4.6500 3.7000-4.9000 Neutrophils (test code = Neutrophils) 3.6000 1.5000-6.7 000 PLT (test code = PLT) 234.0000 140.0000-440.0000 WBC (test code = WBC) 5.4000 4.0000-10.0000 Lymphocytes (test code = Lymphocytes) 1.5000 1.2000-3.2 000 MID (test code = MID) 0.3000 0.1000-1.1000 HGB (test code = HGB) 13.9000 g/dL 11.2000-18.0000 [id number] 12:57:00 Test Item Value Reference Range Comments WBC (test code = WBC) 5.4000 4.0000-10.0000 Lymphocytes % (test code = Lymphocytes %) 28.4000 % 22.400 0-43.6000 MID% (test code = MID%) 5.1000 % 1.2000-11.2000 Neutrophils % (test code = Neutrophils %) 66.5000 % 48.900 0-69.9000 Lymphocytes (test code = Lymphocytes) 1.5000 1.2000-3.2 000 MID (test code = MID) 0.3000 0.1000-1.1000 Neutrophils (test code = Neutrophils) 3.6000 1.5000-6.7 000 RBC (test code = RBC) 4.6500 3.7000-4.9000 HGB (test code = HGB) 13.9000 g/dL 11.2000-18.0000 HCT (test code = HCT) 43.1000 % 34.0000-44.0000 MCV (test code = MCV) 92.7000 fL 80.0000-94.0000 MCH (test code = MCH) 29.9000 pg 27.0000-34.0000 MCHC (test code = MCHC) 32.2000 g/dL 31.5000-36.0000 RDW (test code = RDW) 14.6000 11.0000-18.0000 PLT (test code = PLT) 234.0000 140.0000-440.0000 MPV (test code = MPV) 7.5000 fL 6.8000-10.6000 [id number] 09:48:00 Test Item Value Reference Range Comments HGB (test code = HGB) 14.6000 g/dL 11.2000-18.0000 MID (test code = MID) 0.4000 0.1000-1.1000 Lymphocytes (test code = Lymphocytes) 1.7000 1.2000-3.2 000 WBC (test code = WBC) 6.8000 4.0000-10.0000 PLT (test code = PLT) 180.0000 140.0000-440.0000 Neutrophils (test code = Neutrophils) 4.7000 1.5000-6.7 000 RBC (test code = RBC) 4.8400 3.7000-4.9000 MCHC (test code = MCHC) 33.4000 g/dL 31.5000-36.0000 MCV (test code = MCV) 90.4000 fL 80.0000-94.0000 MPV (test code = MPV) 8.5000 fL 6.8000-10.6000 MCH (test code = MCH) 30.2000 pg 27.0000-34.0000 RDW (test code = RDW) 13.9000 11.0000-18.0000 Neutrophils % (test code = Neutrophils %) 68.7000 % 48.900 0-69.9000 MID% (test code = MID%) 5.7000 % .1999-11.1999 HCT (test code = HCT) 43.8000 % 34.0000-44.0000 Lymphocytes % (test code = Lymphocytes %) 25.6000 % 22.400 0-43.6000 [id number] 09:48:00 Test Item Value Reference Range Comments WBC (test code = WBC) 6.8000 4.0000-10.0000 Lymphocytes % (test code = Lymphocytes %) 25.6000 % 22.400 0-43.6000 MID% (test code = MID%) 5.7000 % .2000-11.1999 Neutrophils % (test code = Neutrophils %) 68.7000 % 48.900 0-69.9000 Lymphocytes (test code = Lymphocytes) 1.7000 1.2000-3.2 000 MID (test code = MID) 0.4000 0.1000-1.1000 Neutrophils (test code = Neutrophils) 4.7000 1.5000-6.7 000 RBC (test code = RBC) 4.8400 3.7000-4.9000 HGB (test code = HGB) 14.6000 g/dL 11.2000-18.0000 HCT (test code = HCT) 43.8000 % 34.0000-44.0000 MCV (test code = MCV) 90.4000 fL 80.0000-94.0000 MCH (test code = MCH) 30.2000 pg 27.0000-34.0000 MCHC (test code = MCHC) 33.4000 g/dL 31.5000-36.0000 RDW (test code = RDW) 13.9000 11.0000-18.0000 PLT (test code = PLT) 180.0000 140.0000-440.0000 MPV (test code = MPV) 8.5000 fL 6.8000-10.6000 Lymphocytes %2019-06-15 10:06:00 Test Item Value Reference Range Comments Lymphocytes % (test code = Lymphocytes %) 22.8000 % 22.400 0-43.6000 HCT (test code = HCT) 42.8000 % 34.0000-44.0000 MID% (test code = MID%) 5.3000 % 1.1999- Neutrophils % (test code = Neutrophils %) 71.9000 % 48.900 0-69.9000 RDW (test code = RDW) 13.9000 11.0000-18.0000 MCH (test code = MCH) 30.3000 pg 27.0000-34.0000 MPV (test code = MPV) 7.3000 fL 6.8000-10.6000 MCV (test code = MCV) 91.5000 fL 80.0000-94.0000 MCHC (test code = MCHC) 33.1000 g/dL 31.5000-36.0000 RBC (test code = RBC) 4.6700 3.7000-4.9000 Neutrophils (test code = Neutrophils) 5.1999 1.5000-6.7 000 PLT (test code = PLT) 206.0000 140.0000-440.0000 WBC (test code = WBC) 7.1999 4.0000-10.0000 Lymphocytes (test code = Lymphocytes) 1.6000 1.2000-3.2 000 MID (test code = MID) 0.4000 0.1000-1.1000 HGB (test code = HGB) 14.1000 g/dL 11.1999-18.0000 [id number] 10:06:00 Test Item Value Reference Range Comments WBC (test code = WBC) 7.1999 4.0000-10.0000 Lymphocytes % (test code = Lymphocytes %) 22.8000 % 22.400 0-43.6000 MID% (test code = MID%) 5.3000 % .1999- Neutrophils % (test code = Neutrophils %) 71.9000 % 48.900 0-69.9000 Lymphocytes (test code = Lymphocytes) 1.6000 1.2000-3.2 000 MID (test code = MID) 0.4000 0.1000-1.1000 Neutrophils (test code = Neutrophils) 5.2000 1.5000-6.7 000 RBC (test code = RBC) 4.6700 3.7000-4.9000 HGB (test code = HGB) 14.1000 g/dL 11.2000-18.0000 HCT (test code = HCT) 42.8000 % 34.0000-44.0000 MCV (test code = MCV) 91.5000 fL 80.0000-94.0000 MCH (test code = MCH) 30.3000 pg 27.0000-34.0000 MCHC (test code = MCHC) 33.1000 g/dL 31.5000-36.0000 RDW (test code = RDW) 13.9000 11.0000-18.0000 PLT (test code = PLT) 206.0000 140.0000-440.0000 MPV (test code = MPV) 7.3000 fL 6.8000-10.6000 [id number] 10:17:00 Test Item Value Reference Range Comments HGB (test code = HGB) 13.7000 g/dL 11.2000-18.0000 Lymphocytes (test code = Lymphocytes) 1.7000 1.2000-3.2 000 MID (test code = MID) 0.5000 0.1000-1.1000 WBC (test code = WBC) 5.7000 4.0000-10.0000 PLT (test code = PLT) 175.0000 140.0000-440.0000 Neutrophils (test code = Neutrophils) 3.5000 1.5000-6.7 000 RBC (test code = RBC) 4.6800 3.7000-4.9000 MCHC (test code = MCHC) 31.1000 g/dL 31.5000-36.0000 MCV (test code = MCV) 93.8000 fL 80.0000-94.0000 MPV (test code = MPV) 8.1000 fL 6.8000-10.6000 MCH (test code = MCH) 29.2000 pg 27.0000-34.0000 RDW (test code = RDW) 14.3000 11.0000-18.0000 MID% (test code = MID%) 7.2000 % 1.2000-11.2000 HCT (test code = HCT) 44.0000 % 34.0000-44.0000 Neutrophils % (test code = Neutrophils %) 61.8000 % 48.900 0-69.9000 Lymphocytes % (test code = Lymphocytes %) 31.0000 % 22.400 0-43.6000 [id number] 10:17:00 Test Item Value Reference Range Comments WBC (test code = WBC) 5.7000 4.0000-10.0000 Lymphocytes % (test code = Lymphocytes %) 31.0000 % 22.400 0-43.6000 MID% (test code = MID%) 7.2000 % 1.1999-11.1999 Neutrophils % (test code = Neutrophils %) 61.8000 % 48.900 0-69.9000 Lymphocytes (test code = Lymphocytes) 1.7000 1.2000-3.2 000 MID (test code = MID) 0.5000 0.1000-1.1000 Neutrophils (test code = Neutrophils) 3.5000 1.5000-6.7 000 RBC (test code = RBC) 4.6800 3.7000-4.9000 HGB (test code = HGB) 13.7000 g/dL 11.2000-18.0000 HCT (test code = HCT) 44.0000 % 34.0000-44.0000 MCV (test code = MCV) 93.8000 fL 80.0000-94.0000 MCH (test code = MCH) 29.2000 pg 27.0000-34.0000 MCHC (test code = MCHC) 31.1000 g/dL 31.5000-36.0000 RDW (test code = RDW) 14.3000 11.0000-18.0000 PLT (test code = PLT) 175.0000 140.0000-440.0000 MPV (test code = MPV) 8.1000 fL 6.8000-10.6000 Lymphocytes %2019-04-20 09:37:00 Test Item Value Reference Range Comments Lymphocytes % (test code = Lymphocytes %) 24.3000 % 22.400 0-43.6000 Neutrophils % (test code = Neutrophils %) 70.5000 % 48.900 0-69.9000 HCT (test code = HCT) 42.7000 % 34.0000-44.0000 MID% (test code = MID%) 5.2000 % 1.2000-11.1999 RDW (test code = RDW) 14.1000 11.0000-18.0000 MCH (test code = MCH) 30.7000 pg 27.0000-34.0000 MPV (test code = MPV) 8.1000 fL 6.8000-10.6000 MCV (test code = MCV) 93.6000 fL 80.0000-94.0000 MCHC (test code = MCHC) 32.8000 g/dL 31.5000-36.0000 RBC (test code = RBC) 4.5500 3.7000-4.9000 Neutrophils (test code = Neutrophils) 3.8000 1.5000-6.7 000 PLT (test code = PLT) 150.0000 140.0000-440.0000 WBC (test code = WBC) 5.5000 4.0000-10.0000 MID (test code = MID) 0.4000 0.1000-1.1000 Lymphocytes (test code = Lymphocytes) 1.3000 1.2000-3.2 000 HGB (test code = HGB) 14.0000 g/dL 11.2000-18.0000 [id number] 09:37:00 Test Item Value Reference Range Comments WBC (test code = WBC) 5.5000 4.0000-10.0000 Lymphocytes % (test code = Lymphocytes %) 24.3000 % 22.400 0-43.6000 MID% (test code = MID%) 5.2000 % 1.2000-11.2000 Neutrophils % (test code = Neutrophils %) 70.5000 % 48.900 0-69.9000 Lymphocytes (test code = Lymphocytes) 1.3000 1.2000-3.2 000 MID (test code = MID) 0.4000 0.1000-1.1000 Neutrophils (test code = Neutrophils) 3.8000 1.5000-6.7 000 RBC (test code = RBC) 4.5500 3.7000-4.9000 HGB (test code = HGB) 14.0000 g/dL 11.2000-18.0000 HCT (test code = HCT) 42.7000 % 34.0000-44.0000 MCV (test code = MCV) 93.6000 fL 80.0000-94.0000 MCH (test code = MCH) 30.7000 pg 27.0000-34.0000 MCHC (test code = MCHC) 32.8000 g/dL 31.5000-36.0000 RDW (test code = RDW) 14.1000 11.0000-18.0000 PLT (test code = PLT) 150.0000 140.0000-440.0000 MPV (test code = MPV) 8.1000 fL 6.8000-10.6000 [id number] 10:09:00 Test Item Value Reference Range Comments HGB (test code = HGB) 14.2000 g/dL 11.2000-18.0000 Lymphocytes (test code = Lymphocytes) 1.4000 1.2000-3.2 000 MID (test code = MID) 0.4000 0.1000-1.1000 WBC (test code = WBC) 6.0000 4.0000-10.0000 PLT (test code = PLT) 176.0000 140.0000-440.0000 Neutrophils (test code = Neutrophils) 4.2000 1.5000-6.7 000 RBC (test code = RBC) 4.9400 3.7000-4.9000 MCHC (test code = MCHC) 29.4000 g/dL 31.5000-36.0000 MCV (test code = MCV) 97.4000 fL 80.0000-94.0000 MPV (test code = MPV) 8.0000 fL 6.8000-10.6000 MCH (test code = MCH) 28.7000 pg 27.0000-34.0000 RDW (test code = RDW) 14.7000 11.0000-18.0000 MID% (test code = MID%) 5.4000 % 1.2000-11.2000 HCT (test code = HCT) 48.2000 % 34.0000-44.0000 Neutrophils % (test code = Neutrophils %) 70.5000 % 48.900 0-69.9000 Lymphocytes % (test code = Lymphocytes %) 24.1000 % 22.400 0-43.6000 [id number] 10:09:00 Test Item Value Reference Range Comments WBC (test code = WBC) 6.0000 4.0000-10.0000 Lymphocytes % (test code = Lymphocytes %) 24.1000 % 22.400 0-43.6000 MID% (test code = MID%) 5.4000 % 1.2000-11.2000 Neutrophils % (test code = Neutrophils %) 70.5000 % 48.900 0-69.9000 Lymphocytes (test code = Lymphocytes) 1.4000 1.2000-3.2 000 MID (test code = MID) 0.4000 0.1000-1.1000 Neutrophils (test code = Neutrophils) 4.2000 1.5000-6.7 000 RBC (test code = RBC) 4.9400 3.7000-4.9000 HGB (test code = HGB) 14.2000 g/dL 11.2000-18.0000 HCT (test code = HCT) 48.2000 % 34.0000-44.0000 MCV (test code = MCV) 97.4000 fL 80.0000-94.0000 MCH (test code = MCH) 28.7000 pg 27.0000-34.0000 MCHC (test code = MCHC) 29.4000 g/dL 31.5000-36.0000 RDW (test code = RDW) 14.7000 11.0000-18.0000 PLT (test code = PLT) 176.0000 140.0000-440.0000 MPV (test code = MPV) 8.0000 fL 6.8000-10.6000 % Iron [id number] 11:24:00 Test Item Value Reference Range Comments % Iron Saturation (test code = % Iron 24.0000 % 15.0000-55 .0000 Saturation) Alkaline Phosphatase (test code = Alkaline 67.0000 39.00 00-117.0000 Phosphatase) eGFR Nfm-Ibfuhqf-Kxeaybex (test code = 74.0000 eGFR Eom-Vcdbluc-Sggrbjnz) BUN/Creat Ratio (test code = BUN/Creat 14.0000 12.0000-2 8.0000 Ratio) A/G Ratio (test code = A/G Ratio) 3.1000 1.2000-2.2000 eGFR -Cymro (test code = eGFR 86.0000 -Cymro) Ferritin (test code = Ferritin) 312.0000 ng/mL 15.0000-150.0000 Cr Clearance (Est) (test code = Cr 131.9500 75.0000-115.0 000 Clearance (Est)) ALT (SGPT) (test code = ALT (SGPT)) 18.0000 0.0000-32.00 00 AST (SGOT) (test code = AST (SGOT)) 17.0000 0.0000-40.00 00 Chloride (test code = Chloride) 107.0000 mmol/L 96.0000-106.0000 CO2 (test code = CO2) 19.0000 mmol/L 20.0000-29.0000 Sodium (test code = Sodium) 142.0000 mmol/L 134.0000-144.0000 Potassium (test code = Potassium) 4.4000 mmol/L 3.5000-5.2000 Protein, Total (test code = Protein, 6.2000 g/dL 6.0000-8.50 00 Total) Iron, Total (test code = Iron, Total) 81.0000 27.0000-13 9.0000 TIBC (test code = TIBC) 340.0000 250.0000-450.0000 UIBC (test code = UIBC) 259.0000 118.0000-369.0000 Creatinine (test code = Creatinine) 0.8400 mg/dL 0.5700-1.000 0 Albumin (test code = Albumin) 4.7000 g/dL 3.6000-4.8000 Globulin (test code = Globulin) 1.5000 g/dL 1.5000-4.5000 Calcium (test code = Calcium) 9.6000 mg/dL 8.7000-10.3000 Bilirubin, Total (test code = Bilirubin, 0.3000 mg/dL 0.0000- 1.2000 Total) BUN (test code = BUN) 12.0000 mg/dL 8.0000-27.0000 Glucose (test code = Glucose) 112.0000 mg/dL 65.0000-99.0000 [id number] 11:24:00 Test Item Value Reference Range Comments Creatinine (test code = Creatinine) 0.8400 mg/dL 0.5700-1.000 0 Cr Clearance (Est) (test code = Cr 131.9500 75.0000-115.0 000 Clearance (Est)) Glucose (test code = Glucose) 112.0000 mg/dL 65.0000-99.0000 BUN (test code = BUN) 12.0000 mg/dL 8.0000-27.0000 eGFR Fwj-Iaeylfk-Lzxfgsss (test code = 74.0000 eGFR Jhr-Eriptjz-Ebjcmeke) eGFR -Cymro (test code = eGFR 86.0000 -Cymro) BUN/Creat Ratio (test code = BUN/Creat 14.0000 12.0000-2 8.0000 Ratio) Sodium (test code = Sodium) 142.0000 mmol/L 134.0000-144.0000 Potassium (test code = Potassium) 4.4000 mmol/L 3.5000-5.2000 Chloride (test code = Chloride) 107.0000 mmol/L 96.0000-106.0000 CO2 (test code = CO2) 19.0000 mmol/L 20.0000-29.0000 Calcium (test code = Calcium) 9.6000 mg/dL 8.7000-10.3000 Protein, Total (test code = Protein, 6.2000 g/dL 6.0000-8.50 00 Total) Albumin (test code = Albumin) 4.7000 g/dL 3.6000-4.8000 Globulin (test code = Globulin) 1.5000 g/dL 1.5000-4.5000 A/G Ratio (test code = A/G Ratio) 3.1000 1.2000-2.2000 Bilirubin, Total (test code = Bilirubin, 0.3000 mg/dL 0.0000- 1.2000 Total) Alkaline Phosphatase (test code = Alkaline 67.0000 39.00 00-117.0000 Phosphatase) AST (SGOT) (test code = AST (SGOT)) 17.0000 0.0000-40.00 00 ALT (SGPT) (test code = ALT (SGPT)) 18.0000 0.0000-32.00 00 Iron, Total (test code = Iron, Total) 81.0000 27.0000-13 9.0000 TIBC (test code = TIBC) 340.0000 250.0000-450.0000 UIBC (test code = UIBC) 259.0000 118.0000-369.0000 % Iron Saturation (test code = % Iron 24.0000 % 15.0000-55 .0000 Saturation) Ferritin (test code = Ferritin) 312.0000 ng/mL 15.0000-150.0000 [id number] 10:01:00 Test Item Value Reference Range Comments HGB (test code = HGB) 13.5000 g/dL 11.2000-18.0000 Lymphocytes (test code = Lymphocytes) 1.4000 1.2000-3.2 000 MID (test code = MID) 0.4000 0.1000-1.1000 WBC (test code = WBC) 5.4000 4.0000-10.0000 Neutrophils (test code = Neutrophils) 3.6000 1.5000-6.7 000 PLT (test code = PLT) 210.0000 140.0000-440.0000 RBC (test code = RBC) 4.7100 3.7000-4.9000 MCHC (test code = MCHC) 31.3000 g/dL 31.5000-36.0000 MCV (test code = MCV) 91.2000 fL 80.0000-94.0000 MPV (test code = MPV) 7.1000 fL 6.8000-10.6000 MCH (test code = MCH) 28.6000 pg 27.0000-34.0000 RDW (test code = RDW) 13.7000 11.0000-18.0000 Neutrophils % (test code = Neutrophils %) 66.7000 % 48.900 0-69.9000 MID% (test code = MID%) 6.5000 % 1.1999-11.1999 HCT (test code = HCT) 43.0000 % 34.0000-44.0000 Lymphocytes % (test code = Lymphocytes %) 26.8000 % 22.400 0-43.6000 [id number] 10:01:00 Test Item Value Reference Range Comments WBC (test code = WBC) 5.4000 4.0000-10.0000 Lymphocytes % (test code = Lymphocytes %) 26.8000 % 22.400 0-43.6000 MID% (test code = MID%) 6.5000 % .1999-11.1999 Neutrophils % (test code = Neutrophils %) 66.7000 % 48.900 0-69.9000 Lymphocytes (test code = Lymphocytes) 1.4000 1.2000-3.2 000 MID (test code = MID) 0.4000 0.1000-1.1000 Neutrophils (test code = Neutrophils) 3.6000 1.5000-6.7 000 RBC (test code = RBC) 4.7100 3.7000-4.9000 HGB (test code = HGB) 13.5000 g/dL 11.2000-18.0000 HCT (test code = HCT) 43.0000 % 34.0000-44.0000 MCV (test code = MCV) 91.2000 fL 80.0000-94.0000 MCH (test code = MCH) 28.6000 pg 27.0000-34.0000 MCHC (test code = MCHC) 31.3000 g/dL 31.5000-36.0000 RDW (test code = RDW) 13.7000 11.0000-18.0000 PLT (test code = PLT) 210.0000 140.0000-440.0000 MPV (test code = MPV) 7.1000 fL 6.8000-10.6000 Lymphocytes %[id number] 09:36:00 Test Item Value Reference Range Comments Lymphocytes % (test code = Lymphocytes %) 27.2000 % 22.400 0-43.6000 HCT (test code = HCT) 39.0000 % 34.0000-44.0000 Neutrophils % (test code = Neutrophils %) 67.1000 % 48.900 0-69.9000 MID% (test code = MID%) 5.7000 % 1.1999-11.1999 RDW (test code = RDW) 14.1000 11.0000-18.0000 MCH (test code = MCH) 29.5000 pg 27.0000-34.0000 MPV (test code = MPV) 7.5000 fL 6.8000-10.6000 MCV (test code = MCV) 91.8000 fL 80.0000-94.0000 MCHC (test code = MCHC) 32.1000 g/dL 31.5000-36.0000 RBC (test code = RBC) 4.2400 3.7000-4.9000 PLT (test code = PLT) 182.0000 140.0000-440.0000 Neutrophils (test code = Neutrophils) 3.3000 1.5000-6.7 000 WBC (test code = WBC) 5.0000 4.0000-10.0000 MID (test code = MID) 0.4000 0.1000-1.1000 Lymphocytes (test code = Lymphocytes) 1.3000 1.2000-3.2 000 HGB (test code = HGB) 12.5000 g/dL 11.1999-18.0000 [id number] 09:36:00 Test Item Value Reference Range Comments WBC (test code = WBC) 5.0000 4.0000-10.0000 Lymphocytes % (test code = Lymphocytes %) 27.2000 % 22.400 0-43.6000 MID% (test code = MID%) 5.7000 % .1999-11.1999 Neutrophils % (test code = Neutrophils %) 67.1000 % 48.900 0-69.9000 Lymphocytes (test code = Lymphocytes) 1.3000 1.2000-3.2 000 MID (test code = MID) 0.4000 0.1000-1.1000 Neutrophils (test code = Neutrophils) 3.3000 1.5000-6.7 000 RBC (test code = RBC) 4.2400 3.7000-4.9000 HGB (test code = HGB) 12.5000 g/dL 11.2000-18.0000 HCT (test code = HCT) 39.0000 % 34.0000-44.0000 MCV (test code = MCV) 91.8000 fL 80.0000-94.0000 MCH (test code = MCH) 29.5000 pg 27.0000-34.0000 MCHC (test code = MCHC) 32.1000 g/dL 31.5000-36.0000 RDW (test code = RDW) 14.1000 11.0000-18.0000 PLT (test code = PLT) 182.0000 140.0000-440.0000 MPV (test code = MPV) 7.5000 fL 6.8000-10.6000 [id number] 08:29:00 Test Item Value Reference Range Comments HGB (test code = HGB) 13.6000 g/dL 11.2000-18.0000 Lymphocytes (test code = Lymphocytes) 1.3000 1.2000-3.2 000 MID (test code = MID) 0.4000 0.1000-1.1000 WBC (test code = WBC) 4.8000 4.0000-10.0000 Neutrophils (test code = Neutrophils) 3.1000 1.5000-6.7 000 PLT (test code = PLT) 165.0000 140.0000-440.0000 RBC (test code = RBC) 4.6600 3.7000-4.9000 MCHC (test code = MCHC) 31.0000 g/dL 31.5000-36.0000 MCV (test code = MCV) 94.6000 fL 80.0000-94.0000 MPV (test code = MPV) 8.1000 fL 6.8000-10.6000 MCH (test code = MCH) 29.3000 pg 27.0000-34.0000 RDW (test code = RDW) 14.9000 11.0000-18.0000 MID% (test code = MID%) 6.6000 % .1999- Neutrophils % (test code = Neutrophils %) 65.5000 % 48.900 0-69.9000 HCT (test code = HCT) 44.1000 % 34.0000-44.0000 Lymphocytes % (test code = Lymphocytes %) 27.9000 % 22.400 0-43.6000 [id number] 08:29:00 Test Item Value Reference Range Comments WBC (test code = WBC) 4.8000 4.0000-10.0000 Lymphocytes % (test code = Lymphocytes %) 27.9000 % 22.400 0-43.6000 MID% (test code = MID%) 6.6000 % .1999- Neutrophils % (test code = Neutrophils %) 65.5000 % 48.900 0-69.9000 Lymphocytes (test code = Lymphocytes) 1.3000 1.2000-3.2 000 MID (test code = MID) 0.4000 0.1000-1.1000 Neutrophils (test code = Neutrophils) 3.1000 1.5000-6.7 000 RBC (test code = RBC) 4.6600 3.7000-4.9000 HGB (test code = HGB) 13.6000 g/dL 11.2000-18.0000 HCT (test code = HCT) 44.1000 % 34.0000-44.0000 MCV (test code = MCV) 94.6000 fL 80.0000-94.0000 MCH (test code = MCH) 29.3000 pg 27.0000-34.0000 MCHC (test code = MCHC) 31.0000 g/dL 31.5000-36.0000 RDW (test code = RDW) 14.9000 11.0000-18.0000 PLT (test code = PLT) 165.0000 140.0000-440.0000 MPV (test code = MPV) 8.1000 fL 6.8000-10.6000 % Iron [id number] 11:02:00 Test Item Value Reference Range Comments % Iron Saturation (test code = % Iron 26.0000 % 15.0000-55 .0000 Saturation) Alkaline Phosphatase (test code = Alkaline 74.0000 39.00 00-117.0000 Phosphatase) eGFR -Cymro (test code = eGFR 84.0000 -Cymro) A/G Ratio (test code = A/G Ratio) 2.8000 1.2000-2.2000 BUN/Creat Ratio (test code = BUN/Creat 15.0000 12.0000-2 8.0000 Ratio) eGFR Qnu-Aandxfp-Eyzienhd (test code = 73.0000 eGFR Dqm-Irlebfe-Ijtjrfwv) Cr Clearance (Est) (test code = Cr 124.3800 75.0000-115.0 000 Clearance (Est)) Ferritin (test code = Ferritin) 331.0000 ng/mL 15.0000-150.0000 Potassium (test code = Potassium) 5.3000 mmol/L 3.5000-5.2000 Sodium (test code = Sodium) 145.0000 mmol/L 134.0000-144.0000 CO2 (test code = CO2) 22.0000 mmol/L 20.0000-29.0000 Chloride (test code = Chloride) 106.0000 mmol/L 96.0000-106.0000 AST (SGOT) (test code = AST (SGOT)) 13.0000 0.0000-40.00 00 ALT (SGPT) (test code = ALT (SGPT)) 19.0000 0.0000-32.00 00 Protein, Total (test code = Protein, 6.4000 g/dL 6.0000-8.50 00 Total) Iron, Total (test code = Iron, Total) 73.0000 27.0000-13 9.0000 UIBC (test code = UIBC) 208.0000 118.0000-369.0000 TIBC (test code = TIBC) 281.0000 250.0000-450.0000 Creatinine (test code = Creatinine) 0.8500 mg/dL 0.5700-1.000 0 Albumin (test code = Albumin) 4.7000 g/dL 3.6000-4.8000 Globulin (test code = Globulin) 1.7000 g/dL 1.5000-4.5000 Glucose (test code = Glucose) 78.0000 mg/dL 65.0000-99.0000 BUN (test code = BUN) 13.0000 mg/dL 8.0000-27.0000 Bilirubin, Total (test code = Bilirubin, 0.2000 mg/dL 0.0000- 1.2000 Total) Calcium (test code = Calcium) 9.7000 mg/dL 8.7000-10.3000 [id number] 11:02:00 Test Item Value Reference Range Comments Creatinine (test code = Creatinine) 0.8500 mg/dL 0.5700-1.000 0 Cr Clearance (Est) (test code = Cr 124.3800 75.0000-115.0 000 Clearance (Est)) Glucose (test code = Glucose) 78.0000 mg/dL 65.0000-99.0000 BUN (test code = BUN) 13.0000 mg/dL 8.0000-27.0000 eGFR Vrm-Ynaatbq-Eqmtlnwt (test code = 73.0000 eGFR Oun-Tfwpkjt-Xugdjhxa) eGFR -Cymro (test code = eGFR 84.0000 -Cymro) BUN/Creat Ratio (test code = BUN/Creat 15.0000 12.0000-2 8.0000 Ratio) Sodium (test code = Sodium) 145.0000 mmol/L 134.0000-144.0000 Potassium (test code = Potassium) 5.3000 mmol/L 3.5000-5.2000 Chloride (test code = Chloride) 106.0000 mmol/L 96.0000-106.0000 CO2 (test code = CO2) 22.0000 mmol/L 20.0000-29.0000 Calcium (test code = Calcium) 9.7000 mg/dL 8.7000-10.3000 Protein, Total (test code = Protein, 6.4000 g/dL 6.0000-8.50 00 Total) Albumin (test code = Albumin) 4.7000 g/dL 3.6000-4.8000 Globulin (test code = Globulin) 1.7000 g/dL 1.5000-4.5000 A/G Ratio (test code = A/G Ratio) 2.8000 1.2000-2.2000 Bilirubin, Total (test code = Bilirubin, 0.2000 mg/dL 0.0000- 1.2000 Total) Alkaline Phosphatase (test code = Alkaline 74.0000 39.00 00-117.0000 Phosphatase) AST (SGOT) (test code = AST (SGOT)) 13.0000 0.0000-40.00 00 ALT (SGPT) (test code = ALT (SGPT)) 19.0000 0.0000-32.00 00 Iron, Total (test code = Iron, Total) 73.0000 27.0000-13 9.0000 TIBC (test code = TIBC) 281.0000 250.0000-450.0000 UIBC (test code = UIBC) 208.0000 118.0000-369.0000 % Iron Saturation (test code = % Iron 26.0000 % 15.0000-55 .0000 Saturation) Ferritin (test code = Ferritin) 331.0000 ng/mL 15.0000-150.0000 [id number] 09:54:00 Test Item Value Reference Range Comments HGB (test code = HGB) 13.5000 g/dL 11.2000-18.0000 MID (test code = MID) 0.4000 0.1000-1.1000 Lymphocytes (test code = Lymphocytes) 1.4000 1.2000-3.2 000 PLT (test code = PLT) 187.0000 140.0000-440.0000 Neutrophils (test code = Neutrophils) 4.1000 1.5000-6.7 000 WBC (test code = WBC) 5.9000 4.0000-10.0000 RBC (test code = RBC) 3.8700 3.7000-4.9000 MPV (test code = MPV) 7.7000 fL 6.8000-10.6000 MCV (test code = MCV) 92.2000 fL 80.0000-94.0000 MCHC (test code = MCHC) 38.0000 g/dL 31.5000-36.0000 MCH (test code = MCH) 35.0000 pg 27.0000-34.0000 Neutrophils % (test code = Neutrophils %) 69.6000 % 48.900 0-69.9000 MID% (test code = MID%) 6.6000 % 1.1999-11 RDW (test code = RDW) 14.6000 11.0000-18.0000 HCT (test code = HCT) 35.7000 % 34.0000-44.0000 Lymphocytes % (test code = Lymphocytes %) 23.8000 % 22.400 0-43.6000 [id number] 09:54:00 Test Item Value Reference Range Comments WBC (test code = WBC) 5.9000 4.0000-10.0000 Lymphocytes % (test code = Lymphocytes %) 23.8000 % 22.400 0-43.6000 MID% (test code = MID%) 6.6000 % .1999- Neutrophils % (test code = Neutrophils %) 69.6000 % 48.900 0-69.9000 Lymphocytes (test code = Lymphocytes) 1.4000 1.2000-3.2 000 MID (test code = MID) 0.4000 0.1000-1.1000 Neutrophils (test code = Neutrophils) 4.1000 1.5000-6.7 000 RBC (test code = RBC) 3.8700 3.7000-4.9000 HGB (test code = HGB) 13.5000 g/dL 11.2000-18.0000 HCT (test code = HCT) 35.7000 % 34.0000-44.0000 MCV (test code = MCV) 92.2000 fL 80.0000-94.0000 MCH (test code = MCH) 35.0000 pg 27.0000-34.0000 MCHC (test code = MCHC) 38.0000 g/dL 31.5000-36.0000 RDW (test code = RDW) 14.6000 11.0000-18.0000 PLT (test code = PLT) 187.0000 140.0000-440.0000 MPV (test code = MPV) 7.7000 fL 6.8000-10.6000 Lymphocytes %[id number] 08:46:00 Test Item Value Reference Range Comments Lymphocytes % (test code = Lymphocytes %) 30.1000 % 22.400 0-43.6000 HCT (test code = HCT) 35.0000 % 34.0000-44.0000 RDW (test code = RDW) 14.5000 11.0000-18.0000 MID% (test code = MID%) 6.5000 % 1.1999-.1999 Neutrophils % (test code = Neutrophils %) 63.4000 % 48.900 0-69.9000 MCHC (test code = MCHC) 33.0000 g/dL 31.5000-36.0000 MCV (test code = MCV) 91.8000 fL 80.0000-94.0000 MPV (test code = MPV) 7.4000 fL 6.8000-10.6000 MCH (test code = MCH) 30.3000 pg 27.0000-34.0000 RBC (test code = RBC) 3.8100 3.7000-4.9000 WBC (test code = WBC) 4.8000 4.0000-10.0000 Neutrophils (test code = Neutrophils) 3.0000 1.5000-6.7 000 PLT (test code = PLT) 236.0000 140.0000-440.0000 Lymphocytes (test code = Lymphocytes) 1.4000 1.2000-3.2 000 MID (test code = MID) 0.4000 0.1000-1.1000 HGB (test code = HGB) 11.5000 g/dL 11.2000-18.0000 [id number] 08:46:00 Test Item Value Reference Range Comments WBC (test code = WBC) 4.8000 4.0000-10.0000 Lymphocytes % (test code = Lymphocytes %) 30.1000 % 22.400 0-43.6000 MID% (test code = MID%) 6.5000 % 1.2000-.1999 Neutrophils % (test code = Neutrophils %) 63.4000 % 48.900 0-69.9000 Lymphocytes (test code = Lymphocytes) 1.4000 1.2000-3.2 000 MID (test code = MID) 0.4000 0.1000-1.1000 Neutrophils (test code = Neutrophils) 3.0000 1.5000-6.7 000 RBC (test code = RBC) 3.8100 3.7000-4.9000 HGB (test code = HGB) 11.5000 g/dL 11.2000-18.0000 HCT (test code = HCT) 35.0000 % 34.0000-44.0000 MCV (test code = MCV) 91.8000 fL 80.0000-94.0000 MCH (test code = MCH) 30.3000 pg 27.0000-34.0000 MCHC (test code = MCHC) 33.0000 g/dL 31.5000-36.0000 RDW (test code = RDW) 14.5000 11.0000-18.0000 PLT (test code = PLT) 236.0000 140.0000-440.0000 MPV (test code = MPV) 7.4000 fL 6.8000-10.6000 [id number] 09:06:00 Test Item Value Reference Range Comments HGB (test code = HGB) 13.2000 g/dL 11.2000-18.0000 Lymphocytes (test code = Lymphocytes) 1.1000 1.2000-3.2 000 MID (test code = MID) 0.3000 0.1000-1.1000 PLT (test code = PLT) 159.0000 140.0000-440.0000 Neutrophils (test code = Neutrophils) 3.7000 1.5000-6.7 000 WBC (test code = WBC) 5.1000 4.0000-10.0000 RBC (test code = RBC) 4.1700 3.7000-4.9000 MPV (test code = MPV) 8.0000 fL 6.8000-10.6000 MCV (test code = MCV) 93.9000 fL 80.0000-94.0000 MCHC (test code = MCHC) 33.8000 g/dL 31.5000-36.0000 MCH (test code = MCH) 31.7000 pg 27.0000-34.0000 MID% (test code = MID%) 4.9000 % 1.2000-11.2000 Neutrophils % (test code = Neutrophils %) 72.6000 % 48.900 0-69.9000 RDW (test code = RDW) 14.5000 11.0000-18.0000 HCT (test code = HCT) 39.2000 % 34.0000-44.0000 Lymphocytes % (test code = Lymphocytes %) 22.5000 % 22.400 0-43.6000 [id number] 09:06:00 Test Item Value Reference Range Comments WBC (test code = WBC) 5.1000 4.0000-10.0000 Lymphocytes % (test code = Lymphocytes %) 22.5000 % 22.400 0-43.6000 MID% (test code = MID%) 4.9000 % 1.1999-11.1999 Neutrophils % (test code = Neutrophils %) 72.6000 % 48.900 0-69.9000 Lymphocytes (test code = Lymphocytes) 1.1000 1.2000-3.2 000 MID (test code = MID) 0.3000 0.1000-1.1000 Neutrophils (test code = Neutrophils) 3.7000 1.5000-6.7 000 RBC (test code = RBC) 4.1700 3.7000-4.9000 HGB (test code = HGB) 13.2000 g/dL 11.2000-18.0000 HCT (test code = HCT) 39.2000 % 34.0000-44.0000 MCV (test code = MCV) 93.9000 fL 80.0000-94.0000 MCH (test code = MCH) 31.7000 pg 27.0000-34.0000 MCHC (test code = MCHC) 33.8000 g/dL 31.5000-36.0000 RDW (test code = RDW) 14.5000 11.0000-18.0000 PLT (test code = PLT) 159.0000 140.0000-440.0000 MPV (test code = MPV) 8.0000 fL 6.8000-10.6000 Lymphocytes %[id number] 10:35:00 Test Item Value Reference Range Comments Lymphocytes % (test code = Lymphocytes %) 24.2000 % 22.400 0-43.6000 HCT (test code = HCT) 36.6000 % 34.0000-44.0000 RDW (test code = RDW) 14.3000 11.0000-18.0000 MID% (test code = MID%) 5.3000 % 1.1999- Neutrophils % (test code = Neutrophils %) 70.5000 % 48.900 0-69.9000 MCHC (test code = MCHC) 34.5000 g/dL 31.5000-36.0000 MCV (test code = MCV) 91.9000 fL 80.0000-94.0000 MCH (test code = MCH) 31.8000 pg 27.0000-34.0000 MPV (test code = MPV) 8.0000 fL 6.8000-10.6000 RBC (test code = RBC) 3.9800 3.7000-4.9000 WBC (test code = WBC) 5.1999 4.0000-10.0000 Neutrophils (test code = Neutrophils) 3.6000 1.5000-6.7 000 PLT (test code = PLT) 204.0000 140.0000-440.0000 Lymphocytes (test code = Lymphocytes) 1.1999 1.2000-3.2 000 MID (test code = MID) 0.4000 0.1000-1.1000 HGB (test code = HGB) 12.6000 g/dL 11.1999-18.0000 [id number] 10:35:00 Test Item Value Reference Range Comments WBC (test code = WBC) 5.1999 4.0000-10.0000 Lymphocytes % (test code = Lymphocytes %) 24.2000 % 22.400 0-43.6000 MID% (test code = MID%) 5.3000 % 1.1999-11.2000 Neutrophils % (test code = Neutrophils %) 70.5000 % 48.900 0-69.9000 Lymphocytes (test code = Lymphocytes) 1.1999 1.2000-3.2 000 MID (test code = MID) 0.4000 0.1000-1.1000 Neutrophils (test code = Neutrophils) 3.6000 1.5000-6.7 000 RBC (test code = RBC) 3.9800 3.7000-4.9000 HGB (test code = HGB) 12.6000 g/dL 11.2000-18.0000 HCT (test code = HCT) 36.6000 % 34.0000-44.0000 MCV (test code = MCV) 91.9000 fL 80.0000-94.0000 MCH (test code = MCH) 31.8000 pg 27.0000-34.0000 MCHC (test code = MCHC) 34.5000 g/dL 31.5000-36.0000 RDW (test code = RDW) 14.3000 11.0000-18.0000 PLT (test code = PLT) 204.0000 140.0000-440.0000 MPV (test code = MPV) 8.0000 fL 6.8000-10.6000 [id number] 08:41:00 Test Item Value Reference Range Comments HGB (test code = HGB) 13.5000 g/dL 11.2000-18.0000 MID (test code = MID) 0.3000 0.1000-1.1000 Lymphocytes (test code = Lymphocytes) 1.1000 1.2000-3.2 000 Neutrophils (test code = Neutrophils) 4.0000 1.5000-6.7 000 PLT (test code = PLT) 177.0000 140.0000-440.0000 WBC (test code = WBC) 5.4000 4.0000-10.0000 RBC (test code = RBC) 4.2300 3.7000-4.9000 MPV (test code = MPV) 7.5000 fL 6.8000-10.6000 MCH (test code = MCH) 31.8000 pg 27.0000-34.0000 MCV (test code = MCV) 91.4000 fL 80.0000-94.0000 MCHC (test code = MCHC) 34.8000 g/dL 31.5000-36.0000 Neutrophils % (test code = Neutrophils %) 73.7000 % 48.900 0-69.9000 MID% (test code = MID%) 5.6000 % .1999-.1999 RDW (test code = RDW) 14.3000 11.0000-18.0000 HCT (test code = HCT) 38.7000 % 34.0000-44.0000 Lymphocytes % (test code = Lymphocytes %) 20.7000 % 22.400 0-43.6000 [id number] 08:41:00 Test Item Value Reference Range Comments WBC (test code = WBC) 5.4000 4.0000-10.0000 Lymphocytes % (test code = Lymphocytes %) 20.7000 % 22.400 0-43.6000 MID% (test code = MID%) 5.6000 % .1999-11.2000 Neutrophils % (test code = Neutrophils %) 73.7000 % 48.900 0-69.9000 Lymphocytes (test code = Lymphocytes) 1.1000 1.2000-3.2 000 MID (test code = MID) 0.3000 0.1000-1.1000 Neutrophils (test code = Neutrophils) 4.0000 1.5000-6.7 000 RBC (test code = RBC) 4.2300 3.7000-4.9000 HGB (test code = HGB) 13.5000 g/dL 11.2000-18.0000 HCT (test code = HCT) 38.7000 % 34.0000-44.0000 MCV (test code = MCV) 91.4000 fL 80.0000-94.0000 MCH (test code = MCH) 31.8000 pg 27.0000-34.0000 MCHC (test code = MCHC) 34.8000 g/dL 31.5000-36.0000 RDW (test code = RDW) 14.3000 11.0000-18.0000 PLT (test code = PLT) 177.0000 140.0000-440.0000 MPV (test code = MPV) 7.5000 fL 6.8000-10.6000 Lymphocytes %[id number] 08:44:00 Test Item Value Reference Range Comments Lymphocytes % (test code = Lymphocytes %) 24.9000 % 22.400 0-43.6000 HCT (test code = HCT) 37.7000 % 34.0000-44.0000 RDW (test code = RDW) 14.1999 11.0000-18.0000 MID% (test code = MID%) 6.3000 % .1999- Neutrophils % (test code = Neutrophils %) 68.8000 % 48.900 0-69.9000 MCHC (test code = MCHC) 33.8000 g/dL 31.5000-36.0000 MCV (test code = MCV) 91.3000 fL 80.0000-94.0000 MCH (test code = MCH) 30.9000 pg 27.0000-34.0000 MPV (test code = MPV) 7.9000 fL 6.8000-10.6000 RBC (test code = RBC) 4.1300 3.7000-4.9000 WBC (test code = WBC) 4.8000 4.0000-10.0000 PLT (test code = PLT) 173.0000 140.0000-440.0000 Neutrophils (test code = Neutrophils) 3.3000 1.5000-6.7 000 Lymphocytes (test code = Lymphocytes) 1.1999 1.2000-3.2 000 MID (test code = MID) 0.3000 0.1000-1.1000 HGB (test code = HGB) 12.7000 g/dL 11.1999-18.0000 [id number] 08:44:00 Test Item Value Reference Range Comments WBC (test code = WBC) 4.8000 4.0000-10.0000 Lymphocytes % (test code = Lymphocytes %) 24.9000 % 22.400 0-43.6000 MID% (test code = MID%) 6.3000 % 1.2000-11.2000 Neutrophils % (test code = Neutrophils %) 68.8000 % 48.900 0-69.9000 Lymphocytes (test code = Lymphocytes) 1.2000 1.2000-3.2 000 MID (test code = MID) 0.3000 0.1000-1.1000 Neutrophils (test code = Neutrophils) 3.3000 1.5000-6.7 000 RBC (test code = RBC) 4.1300 3.7000-4.9000 HGB (test code = HGB) 12.7000 g/dL 11.2000-18.0000 HCT (test code = HCT) 37.7000 % 34.0000-44.0000 MCV (test code = MCV) 91.3000 fL 80.0000-94.0000 MCH (test code = MCH) 30.9000 pg 27.0000-34.0000 MCHC (test code = MCHC) 33.8000 g/dL 31.5000-36.0000 RDW (test code = RDW) 14.1999 11.0000-18.0000 PLT (test code = PLT) 173.0000 140.0000-440.0000 MPV (test code = MPV) 7.9000 fL 6.8000-10.6000 [id number] 15:52:00 Test Item Value Reference Range Comments Globulin (test code = Globulin) 2.0000 g/dL 1.5000-4.5000 Albumin (test code = Albumin) 4.5000 g/dL 3.6000-4.8000 Calcium (test code = Calcium) 9.4000 mg/dL 8.7000-10.3000 Bilirubin, Total (test code = Bilirubin, 0.3000 mg/dL 0.0000- 1.2000 Total) BUN (test code = BUN) 11.0000 mg/dL 8.0000-27.0000 Glucose (test code = Glucose) 98.0000 mg/dL 65.0000-99.0000 Creatinine (test code = Creatinine) 0.7700 mg/dL 0.5700-1.000 0 TIBC (test code = TIBC) 324.0000 250.0000-450.0000 UIBC (test code = UIBC) 266.0000 118.0000-369.0000 Iron, Total (test code = Iron, Total) 58.0000 27.0000-13 9.0000 Protein, Total (test code = Protein, 6.5000 g/dL 6.0000-8.50 00 Total) Ferritin (test code = Ferritin) 143.0000 ng/mL 15.0000-150.0000 Cr Clearance (Est) (test code = Cr 139.1200 75.0000-115.0 000 Clearance (Est)) Alkaline Phosphatase (test code = Alkaline 58.0000 39.00 00-117.0000 Phosphatase) ALT (SGPT) (test code = ALT (SGPT)) 14.0000 0.0000-32.00 00 Chloride (test code = Chloride) 100.0000 mmol/L 96.0000-106.0000 CO2 (test code = CO2) 24.0000 mmol/L 20.0000-29.0000 AST (SGOT) (test code = AST (SGOT)) 13.0000 0.0000-40.00 00 Sodium (test code = Sodium) 141.0000 mmol/L 134.0000-144.0000 Potassium (test code = Potassium) 4.7000 mmol/L 3.5000-5.2000 eGFR Fqv-Winrpnj-Oeccxlxf (test code = 82.0000 eGFR Veg-Kxgdrfk-Dvpomgbm) A/G Ratio (test code = A/G Ratio) 2.3000 1.2000-2.2000 BUN/Creat Ratio (test code = BUN/Creat 14.0000 12.0000-2 8.0000 Ratio) eGFR -Cymro (test code = eGFR 95.0000 -Cymro) % Iron Saturation (test code = % Iron 18.0000 % 15.0000-55 .0000 Saturation) [id number] 15:52:00 Test Item Value Reference Range Comments Creatinine (test code = Creatinine) 0.7700 mg/dL 0.5700-1.000 0 Cr Clearance (Est) (test code = Cr 139.1200 75.0000-115.0 000 Clearance (Est)) Glucose (test code = Glucose) 98.0000 mg/dL 65.0000-99.0000 BUN (test code = BUN) 11.0000 mg/dL 8.0000-27.0000 eGFR Rbi-Oabzoqy-Gjbhatxg (test code = 82.0000 eGFR Gqj-Uppbbtu-Jiuebfid) eGFR -Cymro (test code = eGFR 95.0000 -Cymro) BUN/Creat Ratio (test code = BUN/Creat 14.0000 12.0000-2 8.0000 Ratio) Sodium (test code = Sodium) 141.0000 mmol/L 134.0000-144.0000 Potassium (test code = Potassium) 4.7000 mmol/L 3.5000-5.2000 Chloride (test code = Chloride) 100.0000 mmol/L 96.0000-106.0000 CO2 (test code = CO2) 24.0000 mmol/L 20.0000-29.0000 Calcium (test code = Calcium) 9.4000 mg/dL 8.7000-10.3000 Protein, Total (test code = Protein, 6.5000 g/dL 6.0000-8.50 00 Total) Albumin (test code = Albumin) 4.5000 g/dL 3.6000-4.8000 Globulin (test code = Globulin) 2.0000 g/dL 1.5000-4.5000 A/G Ratio (test code = A/G Ratio) 2.3000 1.2000-2.2000 Bilirubin, Total (test code = Bilirubin, 0.3000 mg/dL 0.0000- 1.2000 Total) Alkaline Phosphatase (test code = Alkaline 58.0000 39.00 00-117.0000 Phosphatase) AST (SGOT) (test code = AST (SGOT)) 13.0000 0.0000-40.00 00 ALT (SGPT) (test code = ALT (SGPT)) 14.0000 0.0000-32.00 00 Iron, Total (test code = Iron, Total) 58.0000 27.0000-13 9.0000 TIBC (test code = TIBC) 324.0000 250.0000-450.0000 UIBC (test code = UIBC) 266.0000 118.0000-369.0000 % Iron Saturation (test code = % Iron 18.0000 % 15.0000-55 .0000 Saturation) Ferritin (test code = Ferritin) 143.0000 ng/mL 15.0000-150.0000 Lymphocytes %2018-05-11 14:46:00 Test Item Value Reference Range Comments Lymphocytes % (test code = Lymphocytes %) 26.6000 % 22.400 0-43.6000 Neutrophils % (test code = Neutrophils %) 67.7000 % 48.900 0-69.9000 HCT (test code = HCT) 38.7000 % 34.0000-44.0000 MID% (test code = MID%) 5.7000 % 1.1999-11 RDW (test code = RDW) 14.3000 11.0000-18.0000 MCH (test code = MCH) 33.4000 pg 27.0000-34.0000 MCV (test code = MCV) 92.0000 fL 80.0000-94.0000 MPV (test code = MPV) 7.5000 fL 6.8000-10.6000 RBC (test code = RBC) 4.2100 3.7000-4.9000 WBC (test code = WBC) 6.5000 4.0000-10.0000 PLT (test code = PLT) 172.0000 140.0000-440.0000 MID (test code = MID) 0.4000 0.1000-1.1000 Neutrophils (test code = Neutrophils) 4.4000 1.5000-6.7 000 Lymphocytes (test code = Lymphocytes) 1.7000 1.2000-3.2 000 HGB (test code = HGB) 14.0000 g/dL 11.1999-18.0000 MCHC (test code = MCHC) 36.2000 g/dL 31.5000-36.0000 [id number] 14:46:00 Test Item Value Reference Range Comments WBC (test code = WBC) 6.5000 4.0000-10.0000 Lymphocytes % (test code = Lymphocytes %) 26.6000 % 22.400 0-43.6000 MID% (test code = MID%) 5.7000 % 1.2000-11.1999 Neutrophils % (test code = Neutrophils %) 67.7000 % 48.900 0-69.9000 Lymphocytes (test code = Lymphocytes) 1.7000 1.2000-3.2 000 MID (test code = MID) 0.4000 0.1000-1.1000 Neutrophils (test code = Neutrophils) 4.4000 1.5000-6.7 000 RBC (test code = RBC) 4.2100 3.7000-4.9000 HGB (test code = HGB) 14.0000 g/dL 11.2000-18.0000 HCT (test code = HCT) 38.7000 % 34.0000-44.0000 MCV (test code = MCV) 92.0000 fL 80.0000-94.0000 MCH (test code = MCH) 33.4000 pg 27.0000-34.0000 MCHC (test code = MCHC) 36.2000 g/dL 31.5000-36.0000 RDW (test code = RDW) 14.3000 11.0000-18.0000 PLT (test code = PLT) 172.0000 140.0000-440.0000 MPV (test code = MPV) 7.5000 fL 6.8000-10.6000 [id number] 08:40:00 Test Item Value Reference Range Comments MCHC (test code = MCHC) 34.9000 g/dL 31.5000-36.0000 HGB (test code = HGB) 13.4000 g/dL 11.2000-18.0000 Lymphocytes (test code = Lymphocytes) 1.6000 1.2000-3.2 000 Neutrophils (test code = Neutrophils) 3.1000 1.5000-6.7 000 MID (test code = MID) 0.3000 0.1000-1.1000 PLT (test code = PLT) 157.0000 140.0000-440.0000 WBC (test code = WBC) 5.0000 4.0000-10.0000 RBC (test code = RBC) 4.3100 3.7000-4.9000 MPV (test code = MPV) 7.7000 fL 6.8000-10.6000 MCV (test code = MCV) 89.2000 fL 80.0000-94.0000 MCH (test code = MCH) 31.1000 pg 27.0000-34.0000 RDW (test code = RDW) 13.9000 11.0000-18.0000 MID% (test code = MID%) 6.1000 % .1999-11.1999 HCT (test code = HCT) 38.5000 % 34.0000-44.0000 Neutrophils % (test code = Neutrophils %) 62.5000 % 48.900 0-69.9000 Lymphocytes % (test code = Lymphocytes %) 31.4000 % 22.400 0-43.6000 [id number] 08:40:00 Test Item Value Reference Range Comments WBC (test code = WBC) 5.0000 4.0000-10.0000 Lymphocytes % (test code = Lymphocytes %) 31.4000 % 22.400 0-43.6000 MID% (test code = MID%) 6.1000 % .2000-11.1999 Neutrophils % (test code = Neutrophils %) 62.5000 % 48.900 0-69.9000 Lymphocytes (test code = Lymphocytes) 1.6000 1.2000-3.2 000 MID (test code = MID) 0.3000 0.1000-1.1000 Neutrophils (test code = Neutrophils) 3.1000 1.5000-6.7 000 RBC (test code = RBC) 4.3100 3.7000-4.9000 HGB (test code = HGB) 13.4000 g/dL 11.2000-18.0000 HCT (test code = HCT) 38.5000 % 34.0000-44.0000 MCV (test code = MCV) 89.2000 fL 80.0000-94.0000 MCH (test code = MCH) 31.1000 pg 27.0000-34.0000 MCHC (test code = MCHC) 34.9000 g/dL 31.5000-36.0000 RDW (test code = RDW) 13.9000 11.0000-18.0000 PLT (test code = PLT) 157.0000 140.0000-440.0000 MPV (test code = MPV) 7.7000 fL 6.8000-10.6000 Lymphocytes %2018-02-22 09:09:00 Test Item Value Reference Range Comments Lymphocytes % (test code = Lymphocytes %) 32.0000 % 22.400 0-43.6000 Neutrophils % (test code = Neutrophils %) 60.4000 % 48.900 0-69.9000 HCT (test code = HCT) 41.6000 % 34.0000-44.0000 MID% (test code = MID%) 7.6000 % 1.2000-11.2000 RDW (test code = RDW) 14.5000 11.0000-18.0000 MCH (test code = MCH) 29.8000 pg 27.0000-34.0000 MCV (test code = MCV) 92.2000 fL 80.0000-94.0000 MPV (test code = MPV) 7.7000 fL 6.8000-10.6000 RBC (test code = RBC) 4.5100 3.7000-4.9000 WBC (test code = WBC) 5.7000 4.0000-10.0000 PLT (test code = PLT) 177.0000 140.0000-440.0000 MID (test code = MID) 0.4000 0.1000-1.1000 Neutrophils (test code = Neutrophils) 3.5000 1.5000-6.7 000 Lymphocytes (test code = Lymphocytes) 1.8000 1.2000-3.2 000 MCHC (test code = MCHC) 32.3000 g/dL 31.5000-36.0000 HGB (test code = HGB) 13.4000 g/dL 11.2000-18.0000 [id number] 09:09:00 Test Item Value Reference Range Comments WBC (test code = WBC) 5.7000 4.0000-10.0000 Lymphocytes % (test code = Lymphocytes %) 32.0000 % 22.400 0-43.6000 MID% (test code = MID%) 7.6000 % 1.2000-11.2000 Neutrophils % (test code = Neutrophils %) 60.4000 % 48.900 0-69.9000 Lymphocytes (test code = Lymphocytes) 1.8000 1.2000-3.2 000 MID (test code = MID) 0.4000 0.1000-1.1000 Neutrophils (test code = Neutrophils) 3.5000 1.5000-6.7 000 RBC (test code = RBC) 4.5100 3.7000-4.9000 HGB (test code = HGB) 13.4000 g/dL 11.2000-18.0000 HCT (test code = HCT) 41.6000 % 34.0000-44.0000 MCV (test code = MCV) 92.2000 fL 80.0000-94.0000 MCH (test code = MCH) 29.8000 pg 27.0000-34.0000 MCHC (test code = MCHC) 32.3000 g/dL 31.5000-36.0000 RDW (test code = RDW) 14.5000 11.0000-18.0000 PLT (test code = PLT) 177.0000 140.0000-440.0000 MPV (test code = MPV) 7.7000 fL 6.8000-10.6000 [id number] 08:42:00 Test Item Value Reference Range Comments MCHC (test code = MCHC) 32.1000 g/dL 31.5000-36.0000 HGB (test code = HGB) 13.2000 g/dL 11.2000-18.0000 Lymphocytes (test code = Lymphocytes) 1.4000 1.2000-3.2 000 Neutrophils (test code = Neutrophils) 3.3000 1.5000-6.7 000 MID (test code = MID) 0.3000 0.1000-1.1000 PLT (test code = PLT) 144.0000 140.0000-440.0000 WBC (test code = WBC) 5.0000 4.0000-10.0000 RBC (test code = RBC) 4.3700 3.7000-4.9000 MPV (test code = MPV) 7.5000 fL 6.8000-10.6000 MCV (test code = MCV) 94.1000 fL 80.0000-94.0000 MCH (test code = MCH) 30.2000 pg 27.0000-34.0000 RDW (test code = RDW) 14.0000 11.0000-18.0000 MID% (test code = MID%) 6.5000 % 1.2000-11.2000 HCT (test code = HCT) 41.1000 % 34.0000-44.0000 Neutrophils % (test code = Neutrophils %) 65.6000 % 48.900 0-69.9000 Lymphocytes % (test code = Lymphocytes %) 27.9000 % 22.400 0-43.6000 [id number] 08:42:00 Test Item Value Reference Range Comments WBC (test code = WBC) 5.0000 4.0000-10.0000 Lymphocytes % (test code = Lymphocytes %) 27.9000 % 22.400 0-43.6000 MID% (test code = MID%) 6.5000 % 1.2000-11.1999 Neutrophils % (test code = Neutrophils %) 65.6000 % 48.900 0-69.9000 Lymphocytes (test code = Lymphocytes) 1.4000 1.2000-3.2 000 MID (test code = MID) 0.3000 0.1000-1.1000 Neutrophils (test code = Neutrophils) 3.3000 1.5000-6.7 000 RBC (test code = RBC) 4.3700 3.7000-4.9000 HGB (test code = HGB) 13.2000 g/dL 11.2000-18.0000 HCT (test code = HCT) 41.1000 % 34.0000-44.0000 MCV (test code = MCV) 94.1000 fL 80.0000-94.0000 MCH (test code = MCH) 30.2000 pg 27.0000-34.0000 MCHC (test code = MCHC) 32.1000 g/dL 31.5000-36.0000 RDW (test code = RDW) 14.0000 11.0000-18.0000 PLT (test code = PLT) 144.0000 140.0000-440.0000 MPV (test code = MPV) 7.5000 fL 6.8000-10.6000 Lymphocytes %2017-11-30 08:33:00 Test Item Value Reference Range Comments Lymphocytes % (test code = Lymphocytes %) 23.2000 % 22.400 0-43.6000 Neutrophils % (test code = Neutrophils %) 72.1000 % 48.900 0-69.9000 HCT (test code = HCT) 38.6000 % 34.0000-44.0000 MID% (test code = MID%) 4.7000 % .1999- RDW (test code = RDW) 15.0000 11.0000-18.0000 MCH (test code = MCH) 30.7000 pg 27.0000-34.0000 MCV (test code = MCV) 96.2000 fL 80.0000-94.0000 MPV (test code = MPV) 8.5000 fL 6.8000-10.6000 RBC (test code = RBC) 4.0100 3.7000-4.9000 WBC (test code = WBC) 4.1999 4.0000-10.0000 PLT (test code = PLT) 129.0000 140.0000-440.0000 MID (test code = MID) 0.3000 0.1000-1.1000 Neutrophils (test code = Neutrophils) 3.0000 1.5000-6.7 000 Lymphocytes (test code = Lymphocytes) 0.9000 1.2000-3.2 000 HGB (test code = HGB) 12.3000 g/dL .1999-18.0000 MCHC (test code = MCHC) 31.9000 g/dL 31.5000-36.0000 [id number] 08:33:00 Test Item Value Reference Range Comments WBC (test code = WBC) 4.1999 4.0000-10.0000 Lymphocytes % (test code = Lymphocytes %) 23.1999 % 22.400 0-43.6000 MID% (test code = MID%) 4.7000 % .1999- Neutrophils % (test code = Neutrophils %) 72.1000 % 48.900 0-69.9000 Lymphocytes (test code = Lymphocytes) 0.9000 1.2000-3.2 000 MID (test code = MID) 0.3000 0.1000-1.1000 Neutrophils (test code = Neutrophils) 3.0000 1.5000-6.7 000 RBC (test code = RBC) 4.0100 3.7000-4.9000 HGB (test code = HGB) 12.3000 g/dL 11.2000-18.0000 HCT (test code = HCT) 38.6000 % 34.0000-44.0000 MCV (test code = MCV) 96.2000 fL 80.0000-94.0000 MCH (test code = MCH) 30.7000 pg 27.0000-34.0000 MCHC (test code = MCHC) 31.9000 g/dL 31.5000-36.0000 RDW (test code = RDW) 15.0000 11.0000-18.0000 PLT (test code = PLT) 129.0000 140.0000-440.0000 MPV (test code = MPV) 8.5000 fL 6.8000-10.6000 [id number] 08:44:00 Test Item Value Reference Range Comments MCHC (test code = MCHC) 34.3000 g/dL 31.5000-36.0000 HGB (test code = HGB) 13.1000 g/dL 11.1999-18.0000 Lymphocytes (test code = Lymphocytes) 1.7000 1.2000-3.2 000 Neutrophils (test code = Neutrophils) 4.2000 1.5000-6.7 000 MID (test code = MID) 0.5000 0.1000-1.1000 PLT (test code = PLT) 204.0000 140.0000-440.0000 WBC (test code = WBC) 6.4000 4.0000-10.0000 RBC (test code = RBC) 4.1200 3.7000-4.9000 MPV (test code = MPV) 7.9000 fL 6.8000-10.6000 MCV (test code = MCV) 92.7000 fL 80.0000-94.0000 MCH (test code = MCH) 31.9000 pg 27.0000-34.0000 RDW (test code = RDW) 16.2000 11.0000-18.0000 MID% (test code = MID%) 6.0000 % 1.1999-11.1999 HCT (test code = HCT) 38.2000 % 34.0000-44.0000 Neutrophils % (test code = Neutrophils %) 66.7000 % 48.900 0-69.9000 Lymphocytes % (test code = Lymphocytes %) 27.3000 % 22.400 0-43.6000 [id number] 08:44:00 Test Item Value Reference Range Comments WBC (test code = WBC) 6.4000 4.0000-10.0000 Lymphocytes % (test code = Lymphocytes %) 27.3000 % 22.400 0-43.6000 MID% (test code = MID%) 6.0000 % 1.1999-11.1999 Neutrophils % (test code = Neutrophils %) 66.7000 % 48.900 0-69.9000 Lymphocytes (test code = Lymphocytes) 1.7000 1.2000-3.2 000 MID (test code = MID) 0.5000 0.1000-1.1000 Neutrophils (test code = Neutrophils) 4.2000 1.5000-6.7 000 RBC (test code = RBC) 4.1200 3.7000-4.9000 HGB (test code = HGB) 13.1000 g/dL 11.2000-18.0000 HCT (test code = HCT) 38.2000 % 34.0000-44.0000 MCV (test code = MCV) 92.7000 fL 80.0000-94.0000 MCH (test code = MCH) 31.9000 pg 27.0000-34.0000 MCHC (test code = MCHC) 34.3000 g/dL 31.5000-36.0000 RDW (test code = RDW) 16.2000 11.0000-18.0000 PLT (test code = PLT) 204.0000 140.0000-440.0000 MPV (test code = MPV) 7.9000 fL 6.8000-10.6000 Neutrophils %2017-10-21 10:43:00 Test Item Value Reference Range Comments Neutrophils % (test code = Neutrophils %) 73.7000 % 48.900 0-69.9000 Lymphocytes % (test code = Lymphocytes %) 20.4000 % 22.400 0-43.6000 HCT (test code = HCT) 35.9000 % 34.0000-44.0000 MID% (test code = MID%) 5.9000 % 1.1999-11.1999 RDW (test code = RDW) 13.9000 11.0000-18.0000 MCH (test code = MCH) 33.8000 pg 27.0000-34.0000 MPV (test code = MPV) 7.6000 fL 6.8000-10.6000 MCV (test code = MCV) 92.4000 fL 80.0000-94.0000 RBC (test code = RBC) 3.8800 3.7000-4.9000 WBC (test code = WBC) 6.7000 4.0000-10.0000 PLT (test code = PLT) 203.0000 140.0000-440.0000 MID (test code = MID) 0.5000 0.1000-1.1000 Neutrophils (test code = Neutrophils) 4.9000 1.5000-6.7 000 Lymphocytes (test code = Lymphocytes) 1.3000 1.2000-3.2 000 HGB (test code = HGB) 13.1000 g/dL 11.2000-18.0000 MCHC (test code = MCHC) 36.6000 g/dL 31.5000-36.0000 eGFR Dvz-Tbxbulo-[id number] 10:43:00 Test Item Value Reference Range Comments eGFR Amc-Wkzdnrr-Rhyjbayu (test code = 73.0000 60.0000-2 00.0000 eGFR Tvq-Tjpuist-Babwvcsy) Cr Clearance (Est) (test code = Cr 127.6000 75.0000-115.0 000 Clearance (Est)) eGFR -Cymro (test code = eGFR 88.0000 60.0000- 200.0000 -Cymro) Sodium (test code = Sodium) 138.0000 mmol/L 128.0000-145.0000 Potassium (test code = Potassium) 4.4000 mmol/L 3.6000-5.1000 CO2 (test code = CO2) 26.0000 mmol/L 18.0000-33.0000 AST (SGOT) (test code = AST (SGOT)) 12.0000 11.0000-37.0 000 Chloride (test code = Chloride) 108.0000 mmol/L 96.0000-108.0000 ALT (SGPT) (test code = ALT (SGPT)) 14.0000 10.0000-47.0 000 Alkaline Phosphatase (test code = Alkaline 56.0000 42.00 00-141.0000 Phosphatase) Protein, Total (test code = Protein, 6.4000 g/dL 6.4000-8.10 00 Total) Creatinine (test code = Creatinine) 0.8000 mg/dL 0.5000-1.200 0 Calcium (test code = Calcium) 9.4700 mg/dL 8.0000-10.3000 Glucose (test code = Glucose) 85.0000 mg/dL 70.0000-118.0000 BUN (test code = BUN) 18.0000 mg/dL 7.0000-22.0000 Bilirubin, Total (test code = Bilirubin, 0.4000 mg/dL 0.0000- 1.6000 Total) Albumin (test code = Albumin) 4.4000 g/dL 3.5000-5.5000 [id number] 10:43:00 Test Item Value Reference Range Comments WBC (test code = WBC) 6.7000 4.0000-10.0000 Lymphocytes % (test code = Lymphocytes %) 20.4000 % 22.400 0-43.6000 MID% (test code = MID%) 5.9000 % 1.2000-11.2000 Neutrophils % (test code = Neutrophils %) 73.7000 % 48.900 0-69.9000 Lymphocytes (test code = Lymphocytes) 1.3000 1.2000-3.2 000 MID (test code = MID) 0.5000 0.1000-1.1000 Neutrophils (test code = Neutrophils) 4.9000 1.5000-6.7 000 RBC (test code = RBC) 3.8800 3.7000-4.9000 HGB (test code = HGB) 13.1000 g/dL 11.2000-18.0000 HCT (test code = HCT) 35.9000 % 34.0000-44.0000 MCV (test code = MCV) 92.4000 fL 80.0000-94.0000 MCH (test code = MCH) 33.8000 pg 27.0000-34.0000 MCHC (test code = MCHC) 36.6000 g/dL 31.5000-36.0000 RDW (test code = RDW) 13.9000 11.0000-18.0000 PLT (test code = PLT) 203.0000 140.0000-440.0000 MPV (test code = MPV) 7.6000 fL 6.8000-10.6000 [id number] 10:43:00 Test Item Value Reference Range Comments Creatinine (test code = Creatinine) 0.8000 mg/dL 0.5000-1.200 0 Cr Clearance (Est) (test code = Cr 127.6000 75.0000-115.0 000 Clearance (Est)) Glucose (test code = Glucose) 85.0000 mg/dL 70.0000-118.0000 BUN (test code = BUN) 18.0000 mg/dL 7.0000-22.0000 Sodium (test code = Sodium) 138.0000 mmol/L 128.0000-145.0000 Potassium (test code = Potassium) 4.4000 mmol/L 3.6000-5.1000 Chloride (test code = Chloride) 108.0000 mmol/L 96.0000-108.0000 CO2 (test code = CO2) 26.0000 mmol/L 18.0000-33.0000 Calcium (test code = Calcium) 9.4700 mg/dL 8.0000-10.3000 Alkaline Phosphatase (test code = Alkaline 56.0000 42.00 00-141.0000 Phosphatase) ALT (SGPT) (test code = ALT (SGPT)) 14.0000 10.0000-47.0 000 AST (SGOT) (test code = AST (SGOT)) 12.0000 11.0000-37.0 000 Bilirubin, Total (test code = Bilirubin, 0.4000 mg/dL 0.0000- 1.6000 Total) Albumin (test code = Albumin) 4.4000 g/dL 3.5000-5.5000 Protein, Total (test code = Protein, 6.4000 g/dL 6.4000-8.10 00 Total) eGFR -Cymro (test code = eGFR 88.0000 60.0000- 200.0000 -Cymro) eGFR Ldu-Zxwtuew-Vuymqhys (test code = 73.0000 60.0000-2 00.0000 eGFR Ttr-Cqeukle-Wcqhgucz) [id number] 00:00:00 Test Item Value Reference Range Comments TIBC (test code = TIBC) 272.0000 250.0000-450.0000 UIBC (test code = UIBC) 176.0000 118.0000-369.0000 Iron, Total (test code = Iron, Total) 96.0000 27.0000-13 9.0000 Ferritin (test code = Ferritin) 357.0000 ng/mL 15.0000-150.0000 % Iron Saturation (test code = % Iron 35.0000 % 15.0000-55 .0000 Saturation) Iron, [id number] 00:00:00 Test Item Value Reference Range Comments Iron, Total (test code = Iron, Total) 96.0000 27.0000-13 9.0000 TIBC (test code = TIBC) 272.0000 250.0000-450.0000 UIBC (test code = UIBC) 176.0000 118.0000-369.0000 % Iron Saturation (test code = % Iron 35.0000 % 15.0000-55 .0000 Saturation) Ferritin (test code = Ferritin) 357.0000 ng/mL 15.0000-150.0000 Neutrophils %[id number] 11:43:00 Test Item Value Reference Range Comments Neutrophils % (test code = Neutrophils %) 70.0000 % 48.900 0-69.9000 Lymphocytes % (test code = Lymphocytes %) 24.2000 % 22.400 0-43.6000 HCT (test code = HCT) 39.7000 % 34.0000-44.0000 RDW (test code = RDW) 14.4000 11.0000-18.0000 MID% (test code = MID%) 5.8000 % .1999- MPV (test code = MPV) 8.5000 fL 6.8000-10.6000 MCV (test code = MCV) 92.6000 fL 80.0000-94.0000 MCH (test code = MCH) 29.6000 pg 27.0000-34.0000 RBC (test code = RBC) 4.2800 3.7000-4.9000 WBC (test code = WBC) 6.1000 4.0000-10.0000 PLT (test code = PLT) 163.0000 140.0000-440.0000 MCHC (test code = MCHC) 32.0000 g/dL 31.5000-36.0000 HGB (test code = HGB) 12.7000 g/dL 11.2000-18.0000 Lymphocytes (test code = Lymphocytes) 1.5000 1.2000-3.2 000 Neutrophils (test code = Neutrophils) 4.3000 1.5000-6.7 000 MID (test code = MID) 0.3000 0.1000-1.1000 [id number] 11:43:00 Test Item Value Reference Range Comments WBC (test code = WBC) 6.1000 4.0000-10.0000 Lymphocytes % (test code = Lymphocytes %) 24.2000 % 22.400 0-43.6000 MID% (test code = MID%) 5.8000 % .1999- Neutrophils % (test code = Neutrophils %) 70.0000 % 48.900 0-69.9000 Lymphocytes (test code = Lymphocytes) 1.5000 1.2000-3.2 000 MID (test code = MID) 0.3000 0.1000-1.1000 Neutrophils (test code = Neutrophils) 4.3000 1.5000-6.7 000 RBC (test code = RBC) 4.2800 3.7000-4.9000 HGB (test code = HGB) 12.7000 g/dL 11.2000-18.0000 HCT (test code = HCT) 39.7000 % 34.0000-44.0000 MCV (test code = MCV) 92.6000 fL 80.0000-94.0000 MCH (test code = MCH) 29.6000 pg 27.0000-34.0000 MCHC (test code = MCHC) 32.0000 g/dL 31.5000-36.0000 RDW (test code = RDW) 14.4000 11.0000-18.0000 PLT (test code = PLT) 163.0000 140.0000-440.0000 MPV (test code = MPV) 8.5000 fL 6.8000-10.6000 [id number] 09:33:00 Test Item Value Reference Range Comments MID (test code = MID) 0.3000 0.1000-1.1000 Neutrophils (test code = Neutrophils) 3.6000 1.5000-6.7 000 Lymphocytes (test code = Lymphocytes) 1.0000 1.2000-3.2 000 HGB (test code = HGB) 13.1000 g/dL 11.2000-18.0000 MCHC (test code = MCHC) 32.5000 g/dL 31.5000-36.0000 PLT (test code = PLT) 140.0000 140.0000-440.0000 WBC (test code = WBC) 4.9000 4.0000-10.0000 RBC (test code = RBC) 4.3400 3.7000-4.9000 MCH (test code = MCH) 30.2000 pg 27.0000-34.0000 MCV (test code = MCV) 92.9000 fL 80.0000-94.0000 MPV (test code = MPV) 7.5000 fL 6.8000-10.6000 MID% (test code = MID%) 6.2000 % 1.2000-11.2000 RDW (test code = RDW) 14.5000 11.0000-18.0000 HCT (test code = HCT) 40.3000 % 34.0000-44.0000 Lymphocytes % (test code = Lymphocytes %) 21.1000 % 22.400 0-43.6000 Neutrophils % (test code = Neutrophils %) 72.7000 % 48.900 0-69.9000 [id number] 09:33:00 Test Item Value Reference Range Comments WBC (test code = WBC) 4.9000 4.0000-10.0000 Lymphocytes % (test code = Lymphocytes %) 21.1000 % 22.400 0-43.6000 MID% (test code = MID%) 6.2000 % 1.2000-11.1999 Neutrophils % (test code = Neutrophils %) 72.7000 % 48.900 0-69.9000 Lymphocytes (test code = Lymphocytes) 1.0000 1.2000-3.2 000 MID (test code = MID) 0.3000 0.1000-1.1000 Neutrophils (test code = Neutrophils) 3.6000 1.5000-6.7 000 RBC (test code = RBC) 4.3400 3.7000-4.9000 HGB (test code = HGB) 13.1000 g/dL 11.2000-18.0000 HCT (test code = HCT) 40.3000 % 34.0000-44.0000 MCV (test code = MCV) 92.9000 fL 80.0000-94.0000 MCH (test code = MCH) 30.2000 pg 27.0000-34.0000 MCHC (test code = MCHC) 32.5000 g/dL 31.5000-36.0000 RDW (test code = RDW) 14.5000 11.0000-18.0000 PLT (test code = PLT) 140.0000 140.0000-440.0000 MPV (test code = MPV) 7.5000 fL 6.8000-10.6000 Neutrophils %2017-07-08 13:39:00 Test Item Value Reference Range Comments Neutrophils % (test code = Neutrophils %) 74.3000 % 48.900 0-69.9000 Lymphocytes % (test code = Lymphocytes %) 20.9000 % 22.400 0-43.6000 HCT (test code = HCT) 41.7000 % 34.0000-44.0000 RDW (test code = RDW) 14.3000 11.0000-18.0000 MID% (test code = MID%) 4.8000 % 1.2000-11.1999 MPV (test code = MPV) 8.6000 fL 6.8000-10.6000 MCV (test code = MCV) 93.2000 fL 80.0000-94.0000 MCH (test code = MCH) 30.2000 pg 27.0000-34.0000 RBC (test code = RBC) 4.4700 3.7000-4.9000 WBC (test code = WBC) 6.4000 4.0000-10.0000 PLT (test code = PLT) 159.0000 140.0000-440.0000 MCHC (test code = MCHC) 32.3000 g/dL 31.5000-36.0000 HGB (test code = HGB) 13.5000 g/dL 11.2000-18.0000 Lymphocytes (test code = Lymphocytes) 1.3000 1.2000-3.2 000 Neutrophils (test code = Neutrophils) 4.8000 1.5000-6.7 000 MID (test code = MID) 0.3000 0.1000-1.1000 [id number] 13:39:00 Test Item Value Reference Range Comments WBC (test code = WBC) 6.4000 4.0000-10.0000 Lymphocytes % (test code = Lymphocytes %) 20.9000 % 22.400 0-43.6000 MID% (test code = MID%) 4.8000 % 1.2000-11.2000 Neutrophils % (test code = Neutrophils %) 74.3000 % 48.900 0-69.9000 Lymphocytes (test code = Lymphocytes) 1.3000 1.2000-3.2 000 MID (test code = MID) 0.3000 0.1000-1.1000 Neutrophils (test code = Neutrophils) 4.8000 1.5000-6.7 000 RBC (test code = RBC) 4.4700 3.7000-4.9000 HGB (test code = HGB) 13.5000 g/dL 11.2000-18.0000 HCT (test code = HCT) 41.7000 % 34.0000-44.0000 MCV (test code = MCV) 93.2000 fL 80.0000-94.0000 MCH (test code = MCH) 30.2000 pg 27.0000-34.0000 MCHC (test code = MCHC) 32.3000 g/dL 31.5000-36.0000 RDW (test code = RDW) 14.3000 11.0000-18.0000 PLT (test code = PLT) 159.0000 140.0000-440.0000 MPV (test code = MPV) 8.6000 fL 6.8000-10.6000 [id number] 14:27:00 Test Item Value Reference Range Comments TIBC (test code = TIBC) 290.0000 250.0000-450.0000 UIBC (test code = UIBC) 238.0000 118.0000-369.0000 Iron, Total (test code = Iron, Total) 52.0000 27.0000-13 9.0000 Ferritin (test code = Ferritin) 237.0000 ng/mL 15.0000-150.0000 Folate (test code = Folate) 6.9000 ng/mL Vitamin B12 (test code = Vitamin B12) 261.0000 pg/mL 211.0000-9 46.0000 % Iron Saturation (test code = % Iron 18.0000 % 15.0000-55 .0000 Saturation) Iron, [id number] 14:27:00 Test Item Value Reference Range Comments Iron, Total (test code = Iron, Total) 52.0000 27.0000-13 9.0000 TIBC (test code = TIBC) 290.0000 250.0000-450.0000 UIBC (test code = UIBC) 238.0000 118.0000-369.0000 % Iron Saturation (test code = % Iron 18.0000 % 15.0000-55 .0000 Saturation) Vitamin B12 (test code = Vitamin B12) 261.0000 pg/mL 211.0000-9 46.0000 Folate (test code = Folate) 6.9000 ng/mL Ferritin (test code = Ferritin) 237.0000 ng/mL 15.0000-150.0000 Protein, [id number] 10:12:00 Test Item Value Reference Range Comments Protein, Total (test code = Protein, 6.4000 g/dL 6.4000-8.10 00 Total) Cr Clearance (Est) (test code = Cr 124.1600 75.0000-115.0 000 Clearance (Est)) Alkaline Phosphatase (test code = Alkaline 61.0000 42.00 00-141.0000 Phosphatase) ALT (SGPT) (test code = ALT (SGPT)) 28.0000 10.0000-47.0 000 Chloride (test code = Chloride) 111.0000 mmol/L 96.0000-108.0000 AST (SGOT) (test code = AST (SGOT)) 16.0000 11.0000-37.0 000 CO2 (test code = CO2) 27.0000 mmol/L 18.0000-33.0000 Potassium (test code = Potassium) 4.5000 mmol/L 3.6000-5.1000 Sodium (test code = Sodium) 136.0000 mmol/L 128.0000-145.0000 Creatinine (test code = Creatinine) 0.8000 mg/dL 0.5000-1.200 0 Calcium (test code = Calcium) 9.5500 mg/dL 8.0000-10.3000 Bilirubin, Total (test code = Bilirubin, 0.4000 mg/dL 0.0000- 1.6000 Total) BUN (test code = BUN) 23.0000 mg/dL 7.0000-22.0000 Glucose (test code = Glucose) 104.0000 mg/dL 70.0000-118.0000 Albumin (test code = Albumin) 4.4000 g/dL 3.5000-5.5000 [id number] 10:12:00 Test Item Value Reference Range Comments Creatinine (test code = Creatinine) 0.8000 mg/dL 0.5000-1.200 0 Cr Clearance (Est) (test code = Cr 124.1600 75.0000-115.0 000 Clearance (Est)) Glucose (test code = Glucose) 104.0000 mg/dL 70.0000-118.0000 BUN (test code = BUN) 23.0000 mg/dL 7.0000-22.0000 Sodium (test code = Sodium) 136.0000 mmol/L 128.0000-145.0000 Potassium (test code = Potassium) 4.5000 mmol/L 3.6000-5.1000 Chloride (test code = Chloride) 111.0000 mmol/L 96.0000-108.0000 CO2 (test code = CO2) 27.0000 mmol/L 18.0000-33.0000 Calcium (test code = Calcium) 9.5500 mg/dL 8.0000-10.3000 Alkaline Phosphatase (test code = Alkaline 61.0000 42.00 00-141.0000 Phosphatase) ALT (SGPT) (test code = ALT (SGPT)) 28.0000 10.0000-47.0 000 AST (SGOT) (test code = AST (SGOT)) 16.0000 11.0000-37.0 000 Bilirubin, Total (test code = Bilirubin, 0.4000 mg/dL 0.0000- 1.6000 Total) Albumin (test code = Albumin) 4.4000 g/dL 3.5000-5.5000 Protein, Total (test code = Protein, 6.4000 g/dL 6.4000-8.10 00 Total) [id number] 10:11:00 Test Item Value Reference Range Comments RBC (test code = RBC) 4.6300 3.7000-4.9000 WBC (test code = WBC) 5.8000 4.0000-10.0000 PLT (test code = PLT) 162.0000 140.0000-440.0000 MCHC (test code = MCHC) 32.1000 g/dL 31.5000-36.0000 HGB (test code = HGB) 13.3000 g/dL 11.2000-18.0000 MID (test code = MID) 0.4000 0.1000-1.1000 Neutrophils (test code = Neutrophils) 3.9000 1.5000-6.7 000 Lymphocytes (test code = Lymphocytes) 1.5000 1.2000-3.2 000 Neutrophils % (test code = Neutrophils %) 67.1000 % 48.900 0-69.9000 Lymphocytes % (test code = Lymphocytes %) 27.3000 % 22.400 0-43.6000 HCT (test code = HCT) 41.6000 % 34.0000-44.0000 MID% (test code = MID%) 5.6000 % 1.2000-11.2000 RDW (test code = RDW) 14.2000 11.0000-18.0000 MCH (test code = MCH) 28.8000 pg 27.0000-34.0000 MCV (test code = MCV) 89.7000 fL 80.0000-94.0000 MPV (test code = MPV) 6.8000 fL 6.8000-10.6000 [id number] 10:11:00 Test Item Value Reference Range Comments WBC (test code = WBC) 5.8000 4.0000-10.0000 Lymphocytes % (test code = Lymphocytes %) 27.3000 % 22.400 0-43.6000 MID% (test code = MID%) 5.6000 % .2000-11.2000 Neutrophils % (test code = Neutrophils %) 67.1000 % 48.900 0-69.9000 Lymphocytes (test code = Lymphocytes) 1.5000 1.2000-3.2 000 MID (test code = MID) 0.4000 0.1000-1.1000 Neutrophils (test code = Neutrophils) 3.9000 1.5000-6.7 000 RBC (test code = RBC) 4.6300 3.7000-4.9000 HGB (test code = HGB) 13.3000 g/dL 11.2000-18.0000 HCT (test code = HCT) 41.6000 % 34.0000-44.0000 MCV (test code = MCV) 89.7000 fL 80.0000-94.0000 MCH (test code = MCH) 28.8000 pg 27.0000-34.0000 MCHC (test code = MCHC) 32.1000 g/dL 31.5000-36.0000 RDW (test code = RDW) 14.1999 11.0000-18.0000 PLT (test code = PLT) 162.0000 140.0000-440.0000 MPV (test code = MPV) 6.8000 fL 6.8000-10.6000 [id number] 10:37:00 Test Item Value Reference Range Comments MPV (test code = MPV) 8.1000 fL 6.8000-10.6000 MCV (test code = MCV) 92.1000 fL 80.0000-94.0000 MCH (test code = MCH) 30.5000 pg 27.0000-34.0000 RDW (test code = RDW) 14.1000 11.0000-18.0000 MID% (test code = MID%) 6.8000 % 1.2000-11.2000 Lymphocytes % (test code = Lymphocytes %) 27.2000 % 22.400 0-43.6000 HCT (test code = HCT) 39.9000 % 34.0000-44.0000 Neutrophils % (test code = Neutrophils %) 66.0000 % 48.900 0-69.9000 Lymphocytes (test code = Lymphocytes) 1.6000 1.2000-3.2 000 Neutrophils (test code = Neutrophils) 4.0000 1.5000-6.7 000 MID (test code = MID) 0.5000 0.1000-1.1000 HGB (test code = HGB) 13.2000 g/dL 11.2000-18.0000 MCHC (test code = MCHC) 33.1000 g/dL 31.5000-36.0000 PLT (test code = PLT) 161.0000 140.0000-440.0000 WBC (test code = WBC) 6.1000 4.0000-10.0000 RBC (test code = RBC) 4.3300 3.7000-4.9000 [id number] 10:37:00 Test Item Value Reference Range Comments WBC (test code = WBC) 6.1000 4.0000-10.0000 Lymphocytes % (test code = Lymphocytes %) 27.2000 % 22.400 0-43.6000 MID% (test code = MID%) 6.8000 % 1.2000-11.2000 Neutrophils % (test code = Neutrophils %) 66.0000 % 48.900 0-69.9000 Lymphocytes (test code = Lymphocytes) 1.6000 1.2000-3.2 000 MID (test code = MID) 0.5000 0.1000-1.1000 Neutrophils (test code = Neutrophils) 4.0000 1.5000-6.7 000 RBC (test code = RBC) 4.3300 3.7000-4.9000 HGB (test code = HGB) 13.2000 g/dL 11.2000-18.0000 HCT (test code = HCT) 39.9000 % 34.0000-44.0000 MCV (test code = MCV) 92.1000 fL 80.0000-94.0000 MCH (test code = MCH) 30.5000 pg 27.0000-34.0000 MCHC (test code = MCHC) 33.1000 g/dL 31.5000-36.0000 RDW (test code = RDW) 14.1000 11.0000-18.0000 PLT (test code = PLT) 161.0000 140.0000-440.0000 MPV (test code = MPV) 8.1000 fL 6.8000-10.6000 [id number] 09:37:00 Test Item Value Reference Range Comments RBC (test code = RBC) 4.2100 3.7000-4.9000 WBC (test code = WBC) 5.2000 4.0000-10.0000 PLT (test code = PLT) 185.0000 140.0000-440.0000 MCHC (test code = MCHC) 32.8000 g/dL 31.5000-36.0000 HGB (test code = HGB) 12.9000 g/dL 11.2000-18.0000 MID (test code = MID) 0.4000 0.1000-1.1000 Neutrophils (test code = Neutrophils) 3.2000 1.5000-6.7 000 Lymphocytes (test code = Lymphocytes) 1.6000 1.2000-3.2 000 Neutrophils % (test code = Neutrophils %) 61.8000 % 48.900 0-69.9000 HCT (test code = HCT) 39.3000 % 34.0000-44.0000 Lymphocytes % (test code = Lymphocytes %) 31.4000 % 22.400 0-43.6000 MID% (test code = MID%) 6.8000 % .1999-.1999 RDW (test code = RDW) 14.5000 11.0000-18.0000 MCH (test code = MCH) 30.6000 pg 27.0000-34.0000 MCV (test code = MCV) 93.4000 fL 80.0000-94.0000 MPV (test code = MPV) 7.6000 fL 6.8000-10.6000 [id number] 09:37:00 Test Item Value Reference Range Comments WBC (test code = WBC) 5.2000 4.0000-10.0000 Lymphocytes % (test code = Lymphocytes %) 31.4000 % 22.400 0-43.6000 MID% (test code = MID%) 6.8000 % .1999- Neutrophils % (test code = Neutrophils %) 61.8000 % 48.900 0-69.9000 Lymphocytes (test code = Lymphocytes) 1.6000 1.2000-3.2 000 MID (test code = MID) 0.4000 0.1000-1.1000 Neutrophils (test code = Neutrophils) 3.2000 1.5000-6.7 000 RBC (test code = RBC) 4.2100 3.7000-4.9000 HGB (test code = HGB) 12.9000 g/dL 11.2000-18.0000 HCT (test code = HCT) 39.3000 % 34.0000-44.0000 MCV (test code = MCV) 93.4000 fL 80.0000-94.0000 MCH (test code = MCH) 30.6000 pg 27.0000-34.0000 MCHC (test code = MCHC) 32.8000 g/dL 31.5000-36.0000 RDW (test code = RDW) 14.5000 11.0000-18.0000 PLT (test code = PLT) 185.0000 140.0000-440.0000 MPV (test code = MPV) 7.6000 fL 6.8000-10.6000 [id number] 09:25:00 Test Item Value Reference Range Comments MPV (test code = MPV) 7.3000 fL 6.8000-10.6000 MCV (test code = MCV) 90.2000 fL 80.0000-94.0000 MCH (test code = MCH) 32.2000 pg 27.0000-34.0000 RDW (test code = RDW) 13.6000 11.0000-18.0000 MID% (test code = MID%) 5.6000 % 1.1999-11.2000 Lymphocytes % (test code = Lymphocytes %) 24.9000 % 22.400 0-43.6000 HCT (test code = HCT) 37.3000 % 34.0000-44.0000 Neutrophils % (test code = Neutrophils %) 69.5000 % 48.900 0-69.9000 Lymphocytes (test code = Lymphocytes) 1.1000 1.2000-3.2 000 Neutrophils (test code = Neutrophils) 3.1000 1.5000-6.7 000 MID (test code = MID) 0.2000 0.1000-1.1000 HGB (test code = HGB) 13.3000 g/dL 11.1999-18.0000 MCHC (test code = MCHC) 35.7000 g/dL 31.5000-36.0000 PLT (test code = PLT) 157.0000 140.0000-440.0000 WBC (test code = WBC) 4.4000 4.0000-10.0000 RBC (test code = RBC) 4.1400 3.7000-4.9000 [id number] 09:25:00 Test Item Value Reference Range Comments WBC (test code = WBC) 4.4000 4.0000-10.0000 Lymphocytes % (test code = Lymphocytes %) 24.9000 % 22.400 0-43.6000 MID% (test code = MID%) 5.6000 % 1.2000-11.2000 Neutrophils % (test code = Neutrophils %) 69.5000 % 48.900 0-69.9000 Lymphocytes (test code = Lymphocytes) 1.1000 1.2000-3.2 000 MID (test code = MID) 0.2000 0.1000-1.1000 Neutrophils (test code = Neutrophils) 3.1000 1.5000-6.7 000 RBC (test code = RBC) 4.1400 3.7000-4.9000 HGB (test code = HGB) 13.3000 g/dL 11.2000-18.0000 HCT (test code = HCT) 37.3000 % 34.0000-44.0000 MCV (test code = MCV) 90.2000 fL 80.0000-94.0000 MCH (test code = MCH) 32.2000 pg 27.0000-34.0000 MCHC (test code = MCHC) 35.7000 g/dL 31.5000-36.0000 RDW (test code = RDW) 13.6000 11.0000-18.0000 PLT (test code = PLT) 157.0000 140.0000-440.0000 MPV (test code = MPV) 7.3000 fL 6.8000-10.6000 [id number] 10:02:00 Test Item Value Reference Range Comments RBC (test code = RBC) 4.4300 3.7000-4.9000 WBC (test code = WBC) 4.7000 4.0000-10.0000 PLT (test code = PLT) 145.0000 140.0000-440.0000 MCHC (test code = MCHC) 32.9000 g/dL 31.5000-36.0000 HGB (test code = HGB) 13.5000 g/dL 11.2000-18.0000 MID (test code = MID) 0.3000 0.1000-1.1000 Neutrophils (test code = Neutrophils) 3.4000 1.5000-6.7 000 Lymphocytes (test code = Lymphocytes) 1.0000 1.2000-3.2 000 Neutrophils % (test code = Neutrophils %) 72.1000 % 48.900 0-69.9000 HCT (test code = HCT) 41.3000 % 34.0000-44.0000 Lymphocytes % (test code = Lymphocytes %) 22.4000 % 22.400 0-43.6000 MID% (test code = MID%) 5.5000 % 1.2000-11.2000 RDW (test code = RDW) 13.9000 11.0000-18.0000 MCH (test code = MCH) 30.6000 pg 27.0000-34.0000 MCV (test code = MCV) 93.2000 fL 80.0000-94.0000 MPV (test code = MPV) 7.4000 fL 6.8000-10.6000 [id number] 10:02:00 Test Item Value Reference Range Comments WBC (test code = WBC) 4.7000 4.0000-10.0000 Lymphocytes % (test code = Lymphocytes %) 22.4000 % 22.400 0-43.6000 MID% (test code = MID%) 5.5000 % 1.2000-11.2000 Neutrophils % (test code = Neutrophils %) 72.1000 % 48.900 0-69.9000 Lymphocytes (test code = Lymphocytes) 1.0000 1.2000-3.2 000 MID (test code = MID) 0.3000 0.1000-1.1000 Neutrophils (test code = Neutrophils) 3.4000 1.5000-6.7 000 RBC (test code = RBC) 4.4300 3.7000-4.9000 HGB (test code = HGB) 13.5000 g/dL 11.2000-18.0000 HCT (test code = HCT) 41.3000 % 34.0000-44.0000 MCV (test code = MCV) 93.2000 fL 80.0000-94.0000 MCH (test code = MCH) 30.6000 pg 27.0000-34.0000 MCHC (test code = MCHC) 32.9000 g/dL 31.5000-36.0000 RDW (test code = RDW) 13.9000 11.0000-18.0000 PLT (test code = PLT) 145.0000 140.0000-440.0000 MPV (test code = MPV) 7.4000 fL 6.8000-10.6000 [id number] 14:02:00 Test Item Value Reference Range Comments Ferritin (test code = Ferritin) 344.0000 ng/mL 15.0000-150.0000 % Iron Saturation (test code = % Iron 30.0000 % 15.0000-55 .0000 Saturation) TIBC (test code = TIBC) 246.0000 250.0000-450.0000 Iron, Total (test code = Iron, Total) 74.0000 27.0000-13 9.0000 UIBC (test code = UIBC) 172.0000 118.0000-369.0000 Iron, [id number] 14:02:00 Test Item Value Reference Range Comments Iron, Total (test code = Iron, Total) 74.0000 27.0000-13 9.0000 TIBC (test code = TIBC) 246.0000 250.0000-450.0000 UIBC (test code = UIBC) 172.0000 118.0000-369.0000 % Iron Saturation (test code = % Iron 30.0000 % 15.0000-55 .0000 Saturation) Ferritin (test code = Ferritin) 344.0000 ng/mL 15.0000-150.0000 [id number] 09:53:00 Test Item Value Reference Range Comments RBC (test code = RBC) 3.7800 3.7000-4.9000 WBC (test code = WBC) 4.9000 4.0000-10.0000 PLT (test code = PLT) 157.0000 140.0000-440.0000 Lymphocytes (test code = Lymphocytes) 1.4000 1.2000-3.2 000 Neutrophils (test code = Neutrophils) 3.1000 1.5000-6.7 000 MID (test code = MID) 0.4000 0.1000-1.1000 HGB (test code = HGB) 12.8000 g/dL 11.1999-14.4000 MCHC (test code = MCHC) 36.3000 g/dL 31.5000-36.0000 Neutrophils % (test code = Neutrophils %) 64.3000 % 48.900 0-69.9000 Lymphocytes % (test code = Lymphocytes %) 28.7000 % 22.400 0-43.6000 HCT (test code = HCT) 35.2000 % 34.0000-44.0000 RDW (test code = RDW) 13.7000 11.0000-18.0000 MID% (test code = MID%) 7.0000 % .2000-11.1999 MPV (test code = MPV) 7.9000 fL 6.8000-10.6000 MCV (test code = MCV) 93.1000 fL 80.0000-94.0000 MCH (test code = MCH) 33.8000 pg 27.0000-34.0000 [id number] 09:53:00 Test Item Value Reference Range Comments WBC (test code = WBC) 4.9000 4.0000-10.0000 Lymphocytes % (test code = Lymphocytes %) 28.7000 % 22.400 0-43.6000 MID% (test code = MID%) 7.0000 % 1.2000-11.1999 Neutrophils % (test code = Neutrophils %) 64.3000 % 48.900 0-69.9000 Lymphocytes (test code = Lymphocytes) 1.4000 1.2000-3.2 000 MID (test code = MID) 0.4000 0.1000-1.1000 Neutrophils (test code = Neutrophils) 3.1000 1.5000-6.7 000 RBC (test code = RBC) 3.7800 3.7000-4.9000 HGB (test code = HGB) 12.8000 g/dL 11.2000-14.4000 HCT (test code = HCT) 35.2000 % 34.0000-44.0000 MCV (test code = MCV) 93.1000 fL 80.0000-94.0000 MCH (test code = MCH) 33.8000 pg 27.0000-34.0000 MCHC (test code = MCHC) 36.3000 g/dL 31.5000-36.0000 RDW (test code = RDW) 13.7000 11.0000-18.0000 PLT (test code = PLT) 157.0000 140.0000-440.0000 MPV (test code = MPV) 7.9000 fL 6.8000-10.6000 [id number] 09:53:00 Test Item Value Reference Range Comments Creatinine (test code = Creatinine) 0.8000 mg/dL 0.5000-1.200 0 Cr Clearance (Est) (test code = Cr 128.7100 75.0000-115.0 000 Clearance (Est)) Glucose (test code = Glucose) 113.0000 mg/dL 70.0000-118.0000 BUN (test code = BUN) 15.0000 mg/dL 7.0000-22.0000 Sodium (test code = Sodium) 141.0000 mmol/L 128.0000-145.0000 Potassium (test code = Potassium) 4.3000 mmol/L 3.6000-5.1000 Chloride (test code = Chloride) 107.0000 mmol/L 96.0000-108.0000 CO2 (test code = CO2) 30.0000 mmol/L 18.0000-33.0000 Calcium (test code = Calcium) 8.9300 mg/dL 8.0000-10.3000 Alkaline Phosphatase (test code = Alkaline 53.0000 42.00 00-141.0000 Phosphatase) ALT (SGPT) (test code = ALT (SGPT)) 25.0000 10.0000-47.0 000 AST (SGOT) (test code = AST (SGOT)) 14.0000 11.0000-37.0 000 Bilirubin, Total (test code = Bilirubin, 0.6000 mg/dL 0.0000- 1.6000 Total) Albumin (test code = Albumin) 4.2000 g/dL 3.5000-5.5000 Protein, Total (test code = Protein, 5.9000 g/dL 6.4000-8.10 00 Total) [id number] 09:42:00 Test Item Value Reference Range Comments MCH (test code = MCH) 30.6000 pg 27.0000-34.0000 MCV (test code = MCV) 94.0000 fL 80.0000-94.0000 MPV (test code = MPV) 7.8000 fL 6.8000-10.6000 MID% (test code = MID%) 6.0000 % 1.1999-11.1999 RDW (test code = RDW) 14.0000 11.0000-18.0000 HCT (test code = HCT) 40.5000 % 34.0000-44.0000 Lymphocytes % (test code = Lymphocytes %) 27.4000 % 22.400 0-43.6000 Neutrophils % (test code = Neutrophils %) 66.6000 % 48.900 0-69.9000 MCHC (test code = MCHC) 32.5000 g/dL 31.5000-36.0000 HGB (test code = HGB) 13.2000 g/dL 11.2000-14.4000 MID (test code = MID) 0.4000 0.1000-1.1000 Neutrophils (test code = Neutrophils) 3.6000 1.5000-6.7 000 Lymphocytes (test code = Lymphocytes) 1.5000 1.2000-3.2 000 PLT (test code = PLT) 170.0000 140.0000-440.0000 WBC (test code = WBC) 5.5000 4.0000-10.0000 RBC (test code = RBC) 4.3100 3.7000-4.9000 [id number] 09:42:00 Test Item Value Reference Range Comments WBC (test code = WBC) 5.5000 4.0000-10.0000 Lymphocytes % (test code = Lymphocytes %) 27.4000 % 22.400 0-43.6000 MID% (test code = MID%) 6.0000 % .2000-11.1999 Neutrophils % (test code = Neutrophils %) 66.6000 % 48.900 0-69.9000 Lymphocytes (test code = Lymphocytes) 1.5000 1.2000-3.2 000 MID (test code = MID) 0.4000 0.1000-1.1000 Neutrophils (test code = Neutrophils) 3.6000 1.5000-6.7 000 RBC (test code = RBC) 4.3100 3.7000-4.9000 HGB (test code = HGB) 13.2000 g/dL 11.2000-14.4000 HCT (test code = HCT) 40.5000 % 34.0000-44.0000 MCV (test code = MCV) 94.0000 fL 80.0000-94.0000 MCH (test code = MCH) 30.6000 pg 27.0000-34.0000 MCHC (test code = MCHC) 32.5000 g/dL 31.5000-36.0000 RDW (test code = RDW) 14.0000 11.0000-18.0000 PLT (test code = PLT) 170.0000 140.0000-440.0000 MPV (test code = MPV) 7.8000 fL 6.8000-10.6000 [id number] 10:35:00 Test Item Value Reference Range Comments RBC (test code = RBC) 4.5400 3.7000-4.9000 WBC (test code = WBC) 6.1000 4.0000-10.0000 PLT (test code = PLT) 167.0000 140.0000-440.0000 Lymphocytes (test code = Lymphocytes) 1.7000 1.2000-3.2 000 Neutrophils (test code = Neutrophils) 4.1000 1.5000-6.7 000 MID (test code = MID) 0.3000 0.1000-1.1000 HGB (test code = HGB) 13.8000 g/dL 11.2000-14.4000 MCHC (test code = MCHC) 33.3000 g/dL 31.5000-36.0000 Neutrophils % (test code = Neutrophils %) 66.7000 % 48.900 0-69.9000 Lymphocytes % (test code = Lymphocytes %) 28.5000 % 22.400 0-43.6000 HCT (test code = HCT) 41.4000 % 34.0000-44.0000 RDW (test code = RDW) 16.7000 11.0000-18.0000 MID% (test code = MID%) 4.8000 % 1.2000-11.2000 MPV (test code = MPV) 8.1000 fL 6.8000-10.6000 MCV (test code = MCV) 91.1000 fL 80.0000-94.0000 MCH (test code = MCH) 30.4000 pg 27.0000-34.0000 [id number] 10:35:00 Test Item Value Reference Range Comments WBC (test code = WBC) 6.1000 4.0000-10.0000 Lymphocytes % (test code = Lymphocytes %) 28.5000 % 22.400 0-43.6000 MID% (test code = MID%) 4.8000 % 1.1999-11.1999 Neutrophils % (test code = Neutrophils %) 66.7000 % 48.900 0-69.9000 Lymphocytes (test code = Lymphocytes) 1.7000 1.2000-3.2 000 MID (test code = MID) 0.3000 0.1000-1.1000 Neutrophils (test code = Neutrophils) 4.1000 1.5000-6.7 000 RBC (test code = RBC) 4.5400 3.7000-4.9000 HGB (test code = HGB) 13.8000 g/dL 11.1999-14.4000 HCT (test code = HCT) 41.4000 % 34.0000-44.0000 MCV (test code = MCV) 91.1000 fL 80.0000-94.0000 MCH (test code = MCH) 30.4000 pg 27.0000-34.0000 MCHC (test code = MCHC) 33.3000 g/dL 31.5000-36.0000 RDW (test code = RDW) 16.7000 11.0000-18.0000 PLT (test code = PLT) 167.0000 140.0000-440.0000 MPV (test code = MPV) 8.1000 fL 6.8000-10.6000 [id number] 08:26:00 Test Item Value Reference Range Comments MCH (test code = MCH) 29.0000 pg 27.0000-34.0000 MPV (test code = MPV) 8.0000 fL 6.8000-10.6000 MCV (test code = MCV) 87.9000 fL 80.0000-94.0000 MID% (test code = MID%) 6.2000 % 1.2000-11.1999 RDW (test code = RDW) 18.6000 11.0000-18.0000 Lymphocytes % (test code = Lymphocytes %) 27.1000 % 22.400 0-43.6000 HCT (test code = HCT) 39.2000 % 34.0000-44.0000 Neutrophils % (test code = Neutrophils %) 66.7000 % 48.900 0-69.9000 MCHC (test code = MCHC) 33.0000 g/dL 31.5000-36.0000 HGB (test code = HGB) 12.9000 g/dL 11.1999-14.4000 MID (test code = MID) 0.4000 0.1000-1.1000 Neutrophils (test code = Neutrophils) 3.6000 1.5000-6.7 000 Lymphocytes (test code = Lymphocytes) 1.5000 1.2000-3.2 000 PLT (test code = PLT) 162.0000 140.0000-440.0000 WBC (test code = WBC) 5.5000 4.0000-10.0000 RBC (test code = RBC) 4.4600 3.7000-4.9000 [id number] 08:26:00 Test Item Value Reference Range Comments WBC (test code = WBC) 5.5000 4.0000-10.0000 Lymphocytes % (test code = Lymphocytes %) 27.1000 % 22.400 0-43.6000 MID% (test code = MID%) 6.2000 % 1.2000-11.1999 Neutrophils % (test code = Neutrophils %) 66.7000 % 48.900 0-69.9000 Lymphocytes (test code = Lymphocytes) 1.5000 1.2000-3.2 000 MID (test code = MID) 0.4000 0.1000-1.1000 Neutrophils (test code = Neutrophils) 3.6000 1.5000-6.7 000 RBC (test code = RBC) 4.4600 3.7000-4.9000 HGB (test code = HGB) 12.9000 g/dL 11.1999-14.4000 HCT (test code = HCT) 39.2000 % 34.0000-44.0000 MCV (test code = MCV) 87.9000 fL 80.0000-94.0000 MCH (test code = MCH) 29.0000 pg 27.0000-34.0000 MCHC (test code = MCHC) 33.0000 g/dL 31.5000-36.0000 RDW (test code = RDW) 18.6000 11.0000-18.0000 PLT (test code = PLT) 162.0000 140.0000-440.0000 MPV (test code = MPV) 8.0000 fL 6.8000-10.6000 [id number] 08:16:00 Test Item Value Reference Range Comments RBC (test code = RBC) 4.6900 3.7000-4.9000 WBC (test code = WBC) 5.4000 4.0000-10.0000 PLT (test code = PLT) 130.0000 140.0000-440.0000 Lymphocytes (test code = Lymphocytes) 1.3000 1.2000-3.2 000 Neutrophils (test code = Neutrophils) 3.8000 1.5000-6.7 000 MID (test code = MID) 0.3000 0.1000-1.1000 HGB (test code = HGB) 13.0000 g/dL 11.2000-14.4000 MCHC (test code = MCHC) 32.1000 g/dL 31.5000-36.0000 Neutrophils % (test code = Neutrophils %) 70.9000 % 48.900 0-69.9000 HCT (test code = HCT) 40.4000 % 34.0000-44.0000 Lymphocytes % (test code = Lymphocytes %) 24.4000 % 22.400 0-43.6000 RDW (test code = RDW) 19.5000 11.0000-18.0000 MID% (test code = MID%) 4.7000 % 1.2000-11.2000 MCV (test code = MCV) 86.2000 fL 80.0000-94.0000 MPV (test code = MPV) 8.5000 fL 6.8000-10.6000 MCH (test code = MCH) 27.7000 pg 27.0000-34.0000 [id number] 08:16:00 Test Item Value Reference Range Comments WBC (test code = WBC) 5.4000 4.0000-10.0000 Lymphocytes % (test code = Lymphocytes %) 24.4000 % 22.400 0-43.6000 MID% (test code = MID%) 4.7000 % 1.2000-11.2000 Neutrophils % (test code = Neutrophils %) 70.9000 % 48.900 0-69.9000 Lymphocytes (test code = Lymphocytes) 1.3000 1.2000-3.2 000 MID (test code = MID) 0.3000 0.1000-1.1000 Neutrophils (test code = Neutrophils) 3.8000 1.5000-6.7 000 RBC (test code = RBC) 4.6900 3.7000-4.9000 HGB (test code = HGB) 13.0000 g/dL 11.2000-14.4000 HCT (test code = HCT) 40.4000 % 34.0000-44.0000 MCV (test code = MCV) 86.2000 fL 80.0000-94.0000 MCH (test code = MCH) 27.7000 pg 27.0000-34.0000 MCHC (test code = MCHC) 32.1000 g/dL 31.5000-36.0000 RDW (test code = RDW) 19.5000 11.0000-18.0000 PLT (test code = PLT) 130.0000 140.0000-440.0000 MPV (test code = MPV) 8.5000 fL 6.8000-10.6000 [id number] 14:28:00 Test Item Value Reference Range Comments Ferritin (test code = Ferritin) 389.0000 ng/mL 15.0000-150.0000 Folate (test code = Folate) 10.1000 ng/mL Vitamin B12 (test code = Vitamin B12) 269.0000 pg/mL 211.0000-9 46.0000 % Iron Saturation (test code = % Iron 25.0000 % 15.0000-55 .0000 Saturation) TIBC (test code = TIBC) 264.0000 250.0000-450.0000 UIBC (test code = UIBC) 197.0000 118.0000-369.0000 Iron, Total (test code = Iron, Total) 67.0000 27.0000-13 9.0000 Iron, [id number] 14:28:00 Test Item Value Reference Range Comments Iron, Total (test code = Iron, Total) 67.0000 27.0000-13 9.0000 TIBC (test code = TIBC) 264.0000 250.0000-450.0000 UIBC (test code = UIBC) 197.0000 118.0000-369.0000 % Iron Saturation (test code = % Iron 25.0000 % 15.0000-55 .0000 Saturation) Vitamin B12 (test code = Vitamin B12) 269.0000 pg/mL 211.0000-9 46.0000 Folate (test code = Folate) 10.1000 ng/mL Ferritin (test code = Ferritin) 389.0000 ng/mL 15.0000-150.0000 [id number] 10:00:00 Test Item Value Reference Range Comments Albumin (test code = Albumin) 4.3000 g/dL 3.5000-5.5000 Calcium (test code = Calcium) 9.0000 mg/dL 8.0000-10.3000 Bilirubin, Total (test code = Bilirubin, 0.2000 mg/dL 0.0000- 1.6000 Total) Glucose (test code = Glucose) 99.0000 mg/dL 70.0000-118.0000 BUN (test code = BUN) 15.9000 mg/dL 7.0000-22.0000 Creatinine (test code = Creatinine) 0.8000 mg/dL 0.5000-1.200 0 Protein, Total (test code = Protein, 6.2000 g/dL 6.4000-8.10 00 Total) Cr Clearance (Est) (test code = Cr 130.0900 75.0000-115.0 000 Clearance (Est)) ALT (SGPT) (test code = ALT (SGPT)) 14.7000 10.0000-47.0 000 Alkaline Phosphatase (test code = Alkaline 52.0000 42.00 00-141.0000 Phosphatase) AST (SGOT) (test code = AST (SGOT)) 12.0000 11.0000-37.0 000 Chloride (test code = Chloride) 104.0000 mmol/L 96.0000-108.0000 Potassium (test code = Potassium) 4.2000 mmol/L 3.6000-5.1000 Sodium (test code = Sodium) 143.0000 mmol/L 128.0000-145.0000 CO2 (test code = CO2) 25.9000 mmol/L 18.0000-33.0000 [id number] 10:00:00 Test Item Value Reference Range Comments Creatinine (test code = Creatinine) 0.8000 mg/dL 0.5000-1.200 0 Cr Clearance (Est) (test code = Cr 130.0900 75.0000-115.0 000 Clearance (Est)) Glucose (test code = Glucose) 99.0000 mg/dL 70.0000-118.0000 BUN (test code = BUN) 15.9000 mg/dL 7.0000-22.0000 Sodium (test code = Sodium) 143.0000 mmol/L 128.0000-145.0000 Potassium (test code = Potassium) 4.2000 mmol/L 3.6000-5.1000 Chloride (test code = Chloride) 104.0000 mmol/L 96.0000-108.0000 CO2 (test code = CO2) 25.9000 mmol/L 18.0000-33.0000 Calcium (test code = Calcium) 9.0000 mg/dL 8.0000-10.3000 Alkaline Phosphatase (test code = Alkaline 52.0000 42.00 00-141.0000 Phosphatase) ALT (SGPT) (test code = ALT (SGPT)) 14.7000 10.0000-47.0 000 AST (SGOT) (test code = AST (SGOT)) 12.0000 11.0000-37.0 000 Bilirubin, Total (test code = Bilirubin, 0.2000 mg/dL 0.0000- 1.6000 Total) Albumin (test code = Albumin) 4.3000 g/dL 3.5000-5.5000 Protein, Total (test code = Protein, 6.2000 g/dL 6.4000-8.10 00 Total) [id number] 09:59:00 Test Item Value Reference Range Comments MCH (test code = MCH) 27.0000 pg 27.0000-34.0000 MPV (test code = MPV) 7.1000 fL 6.8000-10.6000 MCV (test code = MCV) 83.2000 fL 80.0000-94.0000 MID% (test code = MID%) 5.3000 % 1.2000-11.2000 RDW (test code = RDW) 19.7000 11.0000-18.0000 Lymphocytes % (test code = Lymphocytes %) 22.1000 % 22.400 0-43.6000 HCT (test code = HCT) 36.5000 % 34.0000-44.0000 Neutrophils % (test code = Neutrophils %) 72.6000 % 48.900 0-69.9000 MID (test code = MID) 0.3000 0.1000-1.1000 Neutrophils (test code = Neutrophils) 4.3000 1.5000-6.7 000 Lymphocytes (test code = Lymphocytes) 1.3000 1.2000-3.2 000 HGB (test code = HGB) 11.8000 g/dL 11.2000-14.4000 MCHC (test code = MCHC) 32.4000 g/dL 31.5000-36.0000 RBC (test code = RBC) 4.3900 3.7000-4.9000 PLT (test code = PLT) 170.0000 140.0000-440.0000 WBC (test code = WBC) 5.9000 4.0000-10.0000 [id number] 09:59:00 Test Item Value Reference Range Comments WBC (test code = WBC) 5.9000 4.0000-10.0000 Lymphocytes % (test code = Lymphocytes %) 22.1000 % 22.400 0-43.6000 MID% (test code = MID%) 5.3000 % 1.2000-11.1999 Neutrophils % (test code = Neutrophils %) 72.6000 % 48.900 0-69.9000 Lymphocytes (test code = Lymphocytes) 1.3000 1.2000-3.2 000 MID (test code = MID) 0.3000 0.1000-1.1000 Neutrophils (test code = Neutrophils) 4.3000 1.5000-6.7 000 RBC (test code = RBC) 4.3900 3.7000-4.9000 HGB (test code = HGB) 11.8000 g/dL 11.1999-14.4000 HCT (test code = HCT) 36.5000 % 34.0000-44.0000 MCV (test code = MCV) 83.2000 fL 80.0000-94.0000 MCH (test code = MCH) 27.0000 pg 27.0000-34.0000 MCHC (test code = MCHC) 32.4000 g/dL 31.5000-36.0000 RDW (test code = RDW) 19.7000 11.0000-18.0000 PLT (test code = PLT) 170.0000 140.0000-440.0000 MPV (test code = MPV) 7.1000 fL 6.8000-10.6000 Vitamin [id number] 16:11:00 Test Item Value Reference Range Comments Vitamin B12 (test code = Vitamin B12) 164.0000 pg/mL 211.0000-9 46.0000 Folate (test code = Folate) 12.2000 ng/mL Neutrophils %[id number] 16:07:00 Test Item Value Reference Range Comments Neutrophils % (test code = Neutrophils %) 69.8000 % 48.900 0-69.9000 Lymphocytes % (test code = Lymphocytes %) 24.4000 % 22.400 0-43.6000 HCT (test code = HCT) 28.8000 % 34.0000-44.0000 RDW (test code = RDW) 15.4000 11.0000-18.0000 MID% (test code = MID%) 5.8000 % 1.2000-11.1999 MCH (test code = MCH) 28.4000 pg 27.0000-34.0000 MPV (test code = MPV) 7.6000 fL 6.8000-10.6000 MCV (test code = MCV) 76.2000 fL 80.0000-94.0000 WBC (test code = WBC) 6.1999 4.0000-10.0000 PLT (test code = PLT) 210.0000 140.0000-440.0000 RBC (test code = RBC) 3.7800 3.7000-4.9000 MCHC (test code = MCHC) 37.3000 g/dL 31.5000-36.0000 HGB (test code = HGB) 10.7000 g/dL 11.1999-14.4000 Lymphocytes (test code = Lymphocytes) 1.5000 1.2000-3.2 000 MID (test code = MID) 0.4000 0.1000-1.1000 Neutrophils (test code = Neutrophils) 4.3000 1.5000-6.7 000 [id number] 16:07:00 Test Item Value Reference Range Comments WBC (test code = WBC) .1999 4.0000-10.0000 Lymphocytes % (test code = Lymphocytes %) 24.4000 % 22.400 0-43.6000 MID% (test code = MID%) 5.8000 % .1999-11.1999 Neutrophils % (test code = Neutrophils %) 69.8000 % 48.900 0-69.9000 Lymphocytes (test code = Lymphocytes) 1.5000 1.2000-3.2 000 MID (test code = MID) 0.4000 0.1000-1.1000 Neutrophils (test code = Neutrophils) 4.3000 1.5000-6.7 000 RBC (test code = RBC) 3.7800 3.7000-4.9000 HGB (test code = HGB) 10.7000 g/dL 11.1999-14.4000 HCT (test code = HCT) 28.8000 % 34.0000-44.0000 MCV (test code = MCV) 76.2000 fL 80.0000-94.0000 MCH (test code = MCH) 28.4000 pg 27.0000-34.0000 MCHC (test code = MCHC) 37.3000 g/dL 31.5000-36.0000 RDW (test code = RDW) 15.4000 11.0000-18.0000 PLT (test code = PLT) 210.0000 140.0000-440.0000 MPV (test code = MPV) 7.6000 fL 6.8000-10.6000 [id number] 09:35:00 Test Item Value Reference Range Comments Creatinine (test code = Creatinine) 0.9200 mg/dL 0.5700-1.000 0 Cr Clearance (Est) (test code = Cr 138.1300 75.0000-115.0 000 Clearance (Est)) Glucose (test code = Glucose) 166.0000 mg/dL 65.0000-99.0000 BUN (test code = BUN) 15.0000 mg/dL 6.0000-24.0000 eGFR Fjs-Yyyolnp-Tqkblpog (test code = 69.0000 eGFR Uqf-Fewzhcj-Aicyraqm) eGFR -Cymro (test code = eGFR 79.0000 -Cymro) BUN/Creat Ratio (test code = BUN/Creat 16.0000 9.0000-23 .0000 Ratio) Sodium (test code = Sodium) 141.0000 mmol/L 134.0000-144.0000 Potassium (test code = Potassium) 4.9000 mmol/L 3.5000-5.2000 Chloride (test code = Chloride) 103.0000 mmol/L 97.0000-108.0000 CO2 (test code = CO2) 23.0000 mmol/L 19.0000-28.0000 Calcium (test code = Calcium) 8.7000 mg/dL 8.7000-10.2000 Protein, Total (test code = Protein, 5.8000 g/dL 6.0000-8.50 00 Total) Albumin (test code = Albumin) 4.0000 g/dL 3.5000-5.5000 Globulin (test code = Globulin) 1.8000 g/dL 1.5000-4.5000 A/G Ratio (test code = A/G Ratio) 2.2000 1.1000-2.5000 Bilirubin, Total (test code = Bilirubin, 0.3000 mg/dL 0.0000- 1.2000 Total) Alkaline Phosphatase (test code = Alkaline 67.0000 39.00 00-117.0000 Phosphatase) AST (SGOT) (test code = AST (SGOT)) 15.0000 0.0000-40.00 00 ALT (SGPT) (test code = ALT (SGPT)) 16.0000 0.0000-32.00 00 Iron, Total (test code = Iron, Total) 89.0000 35.0000-15 5.0000 TIBC (test code = TIBC) 298.0000 250.0000-450.0000 UIBC (test code = UIBC) 209.0000 150.0000-375.0000 % Iron Saturation (test code = % Iron 30.0000 % 15.0000-55 .0000 Saturation) Vitamin B12 (test code = Vitamin B12) 334.0000 pg/mL 211.0000-9 46.0000 Ferritin (test code = Ferritin) 46.0000 ng/mL 15.0000-150.0000 Neutrophils %2013-11-10 09:04:00 Test Item Value Reference Range Comments Neutrophils % (test code = Neutrophils %) 65.5000 % 48.900 0-69.9000 Lymphocytes % (test code = Lymphocytes %) 29.5000 % 22.400 0-43.6000 HCT (test code = HCT) 41.4000 % 41.0000-51.0000 RDW (test code = RDW) 15.5000 11.0000-18.0000 MID% (test code = MID%) 5.0000 % 1.2000-11.2000 MCH (test code = MCH) 29.6000 pg 27.0000-34.0000 MPV (test code = MPV) 6.7000 fL 6.8000-10.6000 MCV (test code = MCV) 89.2000 fL 80.0000-94.0000 WBC (test code = WBC) 5.4000 4.2000-10.0000 PLT (test code = PLT) 187.0000 140.0000-440.0000 RBC (test code = RBC) 4.6400 4.5000-6.3000 MCHC (test code = MCHC) 33.1000 g/dL 31.5000-36.0000 HGB (test code = HGB) 13.7000 g/dL 14.0000-18.0000 Lymphocytes (test code = Lymphocytes) 1.6000 1.2000-3.2 000 MID (test code = MID) 0.3000 0.1000-1.1000 Neutrophils (test code = Neutrophils) 3.5000 1.5000-6.7 000 [id number] 09:04:00 Test Item Value Reference Range Comments WBC (test code = WBC) 5.4000 4.2000-10.0000 Lymphocytes % (test code = Lymphocytes %) 29.5000 % 22.400 0-43.6000 MID% (test code = MID%) 5.0000 % 1.2000-11.2000 Neutrophils % (test code = Neutrophils %) 65.5000 % 48.900 0-69.9000 Lymphocytes (test code = Lymphocytes) 1.6000 1.2000-3.2 000 MID (test code = MID) 0.3000 0.1000-1.1000 Neutrophils (test code = Neutrophils) 3.5000 1.5000-6.7 000 RBC (test code = RBC) 4.6400 4.5000-6.3000 HGB (test code = HGB) 13.7000 g/dL 14.0000-18.0000 HCT (test code = HCT) 41.4000 % 41.0000-51.0000 MCV (test code = MCV) 89.2000 fL 80.0000-94.0000 MCH (test code = MCH) 29.6000 pg 27.0000-34.0000 MCHC (test code = MCHC) 33.1000 g/dL 31.5000-36.0000 RDW (test code = RDW) 15.5000 11.0000-18.0000 PLT (test code = PLT) 187.0000 140.0000-440.0000 MPV (test code = MPV) 6.7000 fL 6.8000-10.6000 [id number] 09:37:00 Test Item Value Reference Range Comments UIBC (test code = UIBC) 218.0000 150.0000-375.0000 Iron, Total (test code = Iron, Total) 75.0000 35.0000-15 5.0000 TIBC (test code = TIBC) 293.0000 250.0000-450.0000 Ferritin (test code = Ferritin) 125.0000 ng/mL 15.0000-150.0000 % Iron Saturation (test code = % Iron 26.0000 % 15.0000-55 .0000 Saturation) Iron, [id number] 09:37:00 Test Item Value Reference Range Comments Iron, Total (test code = Iron, Total) 75.0000 35.0000-15 5.0000 TIBC (test code = TIBC) 293.0000 250.0000-450.0000 UIBC (test code = UIBC) 218.0000 150.0000-375.0000 % Iron Saturation (test code = % Iron 26.0000 % 15.0000-55 .0000 Saturation) Ferritin (test code = Ferritin) 125.0000 ng/mL 15.0000-150.0000 Neutrophils %2013-08-10 09:04:00 Test Item Value Reference Range Comments Neutrophils % (test code = Neutrophils %) 69.3000 % 48.900 0-69.9000 HCT (test code = HCT) 38.8000 % 41.0000-51.0000 Lymphocytes % (test code = Lymphocytes %) 25.1000 % 22.400 0-43.6000 MID% (test code = MID%) 5.6000 % .1999- RDW (test code = RDW) 15.7000 11.0000-14.6000 MCH (test code = MCH) 31.4000 pg 27.0000-34.0000 MPV (test code = MPV) 6.5000 fL 6.8000-10.6000 MCV (test code = MCV) 89.7000 fL 80.0000-94.0000 WBC (test code = WBC) 7.0000 4.2000-10.0000 PLT (test code = PLT) 331.0000 140.0000-440.0000 RBC (test code = RBC) 4.3200 4.5000-6.3000 MID (test code = MID) 0.5000 0.1000-1.1000 Neutrophils (test code = Neutrophils) 4.8000 1.5000-6.7 000 Lymphocytes (test code = Lymphocytes) 1.7000 1.2000-3.2 000 HGB (test code = HGB) 13.6000 g/dL 14.0000-18.0000 MCHC (test code = MCHC) 35.0000 g/dL 31.5000-36.0000 [id number] 09:04:00 Test Item Value Reference Range Comments WBC (test code = WBC) 7.0000 4.2000-10.0000 Lymphocytes % (test code = Lymphocytes %) 25.1000 % 22.400 0-43.6000 MID% (test code = MID%) 5.6000 % .1999- Neutrophils % (test code = Neutrophils %) 69.3000 % 48.900 0-69.9000 Lymphocytes (test code = Lymphocytes) 1.7000 1.2000-3.2 000 MID (test code = MID) 0.5000 0.1000-1.1000 Neutrophils (test code = Neutrophils) 4.8000 1.5000-6.7 000 RBC (test code = RBC) 4.3200 4.5000-6.3000 HGB (test code = HGB) 13.6000 g/dL 14.0000-18.0000 HCT (test code = HCT) 38.8000 % 41.0000-51.0000 MCV (test code = MCV) 89.7000 fL 80.0000-94.0000 MCH (test code = MCH) 31.4000 pg 27.0000-34.0000 MCHC (test code = MCHC) 35.0000 g/dL 31.5000-36.0000 RDW (test code = RDW) 15.7000 11.0000-14.6000 PLT (test code = PLT) 331.0000 140.0000-440.0000 MPV (test code = MPV) 6.5000 fL 6.8000-10.6000 Iron, [id number] 09:23:00 Test Item Value Reference Range Comments Iron, Total (test code = Iron, Total) 66.0000 35.0000-15 5.0000 TIBC (test code = TIBC) 294.0000 250.0000-450.0000 UIBC (test code = UIBC) 228.0000 150.0000-375.0000 % Iron Saturation (test code = % Iron 22.0000 % 15.0000-55 .0000 Saturation) Ferritin (test code = Ferritin) 149.0000 ng/mL 15.0000-150.0000 [id number] 09:08:00 Test Item Value Reference Range Comments RDW (test code = RDW) 20.2000 11.0000-14.6000 MID% (test code = MID%) 4.6000 % 1.2000-11.2000 Neutrophils % (test code = Neutrophils %) 73.3000 % 48.900 0-69.9000 HCT (test code = HCT) 42.0000 % 41.0000-51.0000 Lymphocytes % (test code = Lymphocytes %) 22.1000 % 22.400 0-43.6000 MCH (test code = MCH) 27.5000 pg 27.0000-34.0000 MCV (test code = MCV) 85.7000 fL 80.0000-94.0000 MPV (test code = MPV) 6.6000 fL 6.8000-10.6000 MCHC (test code = MCHC) 32.1000 g/dL 31.5000-36.0000 HGB (test code = HGB) 13.5000 g/dL 14.0000-18.0000 Lymphocytes (test code = Lymphocytes) 1.1999 1.2000-3.2 000 Neutrophils (test code = Neutrophils) 4.1999 1.5000-6.7 000 MID (test code = MID) 0.4000 0.1000-1.1000 WBC (test code = WBC) 5.8000 4.2000-10.0000 PLT (test code = PLT) 184.0000 140.0000-440.0000 RBC (test code = RBC) 4.9100 4.5000-6.3000 [id number] 09:08:00 Test Item Value Reference Range Comments WBC (test code = WBC) 5.8000 4.1999-10.0000 Lymphocytes % (test code = Lymphocytes %) 22.1000 % 22.400 0-43.6000 MID% (test code = MID%) 4.6000 % .1999-11.1999 Neutrophils % (test code = Neutrophils %) 73.3000 % 48.900 0-69.9000 Lymphocytes (test code = Lymphocytes) 1.1999 1.2000-3.2 000 MID (test code = MID) 0.4000 0.1000-1.1000 Neutrophils (test code = Neutrophils) 4.1999 1.5000-6.7 000 RBC (test code = RBC) 4.9100 4.5000-6.3000 HGB (test code = HGB) 13.5000 g/dL 14.0000-18.0000 HCT (test code = HCT) 42.0000 % 41.0000-51.0000 MCV (test code = MCV) 85.7000 fL 80.0000-94.0000 MCH (test code = MCH) 27.5000 pg 27.0000-34.0000 MCHC (test code = MCHC) 32.1000 g/dL 31.5000-36.0000 RDW (test code = RDW) 20.2000 11.0000-14.6000 PLT (test code = PLT) 184.0000 140.0000-440.0000 MPV (test code = MPV) 6.6000 fL 6.8000-10.6000 Iron, [id number] 10:54:00 Test Item Value Reference Range Comments Iron, Total (test code = Iron, Total) 295.0000 35.0000-15 5.0000 TIBC (test code = TIBC) 424.0000 250.0000-450.0000 UIBC (test code = UIBC) 129.0000 150.0000-375.0000 Creatinine (test code = Creatinine) 0.8000 mg/dL 0.5700-1.000 0 Calcium (test code = Calcium) 9.0000 mg/dL 8.7000-10.2000 Bilirubin, Total (test code = Bilirubin, 0.4000 mg/dL 0.0000- 1.2000 Total) Glucose (test code = Glucose) 90.0000 mg/dL 65.0000-99.0000 BUN (test code = BUN) 11.0000 mg/dL 6.0000-24.0000 Globulin (test code = Globulin) 2.3000 g/dL 1.5000-4.5000 Albumin (test code = Albumin) 4.5000 g/dL 3.5000-5.5000 Protein, Total (test code = Protein, 6.8000 g/dL 6.0000-8.50 00 Total) Cr Clearance (Est) (test code = Cr 153.5800 75.0000-115.0 000 Clearance (Est)) Ferritin (test code = Ferritin) 12.0000 ng/mL 15.0000-150.0000 Alkaline Phosphatase (test code = Alkaline 74.0000 25.00 00-150.0000 Phosphatase) ALT (SGPT) (test code = ALT (SGPT)) 14.0000 0.0000-32.00 00 Chloride (test code = Chloride) 104.0000 mmol/L 97.0000-108.0000 AST (SGOT) (test code = AST (SGOT)) 12.0000 0.0000-40.00 00 CO2 (test code = CO2) 23.0000 mmol/L 20.0000-32.0000 Potassium (test code = Potassium) 4.4000 mmol/L 3.5000-5.2000 Sodium (test code = Sodium) 140.0000 mmol/L 134.0000-144.0000 % Iron Saturation (test code = % Iron 70.0000 % 15.0000-55 .0000 Saturation) eGFR -Cymro (test code = eGFR 94.0000 -Cymro) A/G Ratio (test code = A/G Ratio) 2.0000 1.1000-2.5000 BUN/Creat Ratio (test code = BUN/Creat 14.0000 9.0000-23 .0000 Ratio) eGFR Cug-Yalnvig-Kihlsqvl (test code = 82.0000 eGFR Sev-Hufzhqh-Bcyvqmuh) [id number] 10:54:00 Test Item Value Reference Range Comments Creatinine (test code = Creatinine) 0.8000 mg/dL 0.5700-1.000 0 Cr Clearance (Est) (test code = Cr 153.5800 75.0000-115.0 000 Clearance (Est)) Glucose (test code = Glucose) 90.0000 mg/dL 65.0000-99.0000 BUN (test code = BUN) 11.0000 mg/dL 6.0000-24.0000 eGFR Gtp-Waaijfk-Pjaynpwu (test code = 82.0000 eGFR Ike-Ijwtlns-Eamsitmi) eGFR -Cymro (test code = eGFR 94.0000 -Cymro) BUN/Creat Ratio (test code = BUN/Creat 14.0000 9.0000-23 .0000 Ratio) Sodium (test code = Sodium) 140.0000 mmol/L 134.0000-144.0000 Potassium (test code = Potassium) 4.4000 mmol/L 3.5000-5.2000 Chloride (test code = Chloride) 104.0000 mmol/L 97.0000-108.0000 CO2 (test code = CO2) 23.0000 mmol/L 20.0000-32.0000 Calcium (test code = Calcium) 9.0000 mg/dL 8.7000-10.2000 Protein, Total (test code = Protein, 6.8000 g/dL 6.0000-8.50 00 Total) Albumin (test code = Albumin) 4.5000 g/dL 3.5000-5.5000 Globulin (test code = Globulin) 2.3000 g/dL 1.5000-4.5000 A/G Ratio (test code = A/G Ratio) 2.0000 1.1000-2.5000 Bilirubin, Total (test code = Bilirubin, 0.4000 mg/dL 0.0000- 1.2000 Total) Alkaline Phosphatase (test code = Alkaline 74.0000 25.00 00-150.0000 Phosphatase) AST (SGOT) (test code = AST (SGOT)) 12.0000 0.0000-40.00 00 ALT (SGPT) (test code = ALT (SGPT)) 14.0000 0.0000-32.00 00 Iron, Total (test code = Iron, Total) 295.0000 35.0000-15 5.0000 TIBC (test code = TIBC) 424.0000 250.0000-450.0000 UIBC (test code = UIBC) 129.0000 150.0000-375.0000 % Iron Saturation (test code = % Iron 70.0000 % 15.0000-55 .0000 Saturation) Ferritin (test code = Ferritin) 12.0000 ng/mL 15.0000-150.0000 [id number] 10:25:00 Test Item Value Reference Range Comments RDW (test code = RDW) 19.6000 11.0000-14.6000 MID% (test code = MID%) 4.7000 % .1999- Neutrophils % (test code = Neutrophils %) 74.5000 % 48.900 0-69.9000 Lymphocytes % (test code = Lymphocytes %) 20.8000 % 22.400 0-43.6000 HCT (test code = HCT) 35.6000 % 41.0000-51.0000 MCH (test code = MCH) 26.2000 pg 27.0000-34.0000 MPV (test code = MPV) 6.5000 fL 6.8000-10.6000 MCV (test code = MCV) 77.8000 fL 80.0000-94.0000 MCHC (test code = MCHC) 33.6000 g/dL 31.5000-36.0000 HGB (test code = HGB) 12.0000 g/dL 14.0000-18.0000 Lymphocytes (test code = Lymphocytes) 1.3000 1.2000-3.2 000 MID (test code = MID) 0.4000 0.1000-1.1000 Neutrophils (test code = Neutrophils) 4.9000 1.5000-6.7 000 PLT (test code = PLT) 240.0000 140.0000-440.0000 WBC (test code = WBC) 6.6000 4.2000-10.0000 RBC (test code = RBC) 4.5700 4.5000-6.3000 [id number] 10:25:00 Test Item Value Reference Range Comments WBC (test code = WBC) 6.6000 4.2000-10.0000 Lymphocytes % (test code = Lymphocytes %) 20.8000 % 22.400 0-43.6000 MID% (test code = MID%) 4.7000 % .1999- Neutrophils % (test code = Neutrophils %) 74.5000 % 48.900 0-69.9000 Lymphocytes (test code = Lymphocytes) 1.3000 1.2000-3.2 000 MID (test code = MID) 0.4000 0.1000-1.1000 Neutrophils (test code = Neutrophils) 4.9000 1.5000-6.7 000 RBC (test code = RBC) 4.5700 4.5000-6.3000 HGB (test code = HGB) 12.0000 g/dL 14.0000-18.0000 HCT (test code = HCT) 35.6000 % 41.0000-51.0000 MCV (test code = MCV) 77.8000 fL 80.0000-94.0000 MCH (test code = MCH) 26.2000 pg 27.0000-34.0000 MCHC (test code = MCHC) 33.6000 g/dL 31.5000-36.0000 RDW (test code = RDW) 19.6000 11.0000-14.6000 PLT (test code = PLT) 240.0000 140.0000-440.0000 MPV (test code = MPV) 6.5000 fL 6.8000-10.6000 Assessments Condition Name Status Diagnosis Date Treating Clinici an Closed Colles' fracture Active 2019-12-05 08:53:26 Closed Colles' fracture Active 2019-11-17 11:54:01 Pain of right wrist Active 2019-11-17 11:54:01 Closed Colles' fracture Active 2019-11-17 11:54:01 Pain of right wrist Active 2019-11-17 11:54:01 Closed Colles' fracture Active 2019-11-14 14:49:46 Pain of right wrist Active 2019-11-14 14:49:46 Closed Colles' fracture Active 2019-11-14 14:49:46 Pain of right wrist Active 2019-11-14 14:49:46 Closed Colles' fracture Active 2019-11-10 19:45:49 Pain of right wrist Active 2019-11-10 19:45:49 Closed Colles' fracture Active 2019-11-10 19:45:49 Pain of right wrist Active 2019-11-10 19:45:49 Closed Colles' fracture Active 2019-11-07 14:19:14 Pain of right wrist Active 2019-11-07 14:19:14 Closed Colles' fracture Active 2019-11-07 14:19:14 Pain of right wrist Active 2019-11-07 14:19:14 Closed Colles' fracture Active 2019-11-03 07:59:31 Pain of right wrist Active 2019-11-03 07:59:31 Closed Colles' fracture Active 2019-10-29 09:19:43 Pain of right wrist Active 2019-10-29 09:19:43 Closed Colles' fracture Active 2019-10-24 10:24:40 Closed Colles' fracture Active 2019-10-24 10:24:40 Pain of right wrist Active 2019-10-26 08:56:52 Closed Colles' fracture Active 2019-09-26 12:59:37 Closed Colles' fracture Active 2019-09-26 12:59:37 Closed Colles' fracture Active 2019-09-08 16:16:03 Atrophic vaginitis Active Nocturia Active Frequency of urination Active Mixed incontinence urge and stress Active (male)(female) Gastroesophageal reflux disease without Active esophagitis Voice disturbance Active Tinnitus, bilateral Active Encounters Start End Encounter Admission Attending Care Care Encounter Date/Time Date/Time Type Type Clinicians Facility Department ID 2020-10-10 2020-10-10 Outpatient Homero Sky rn [id number] 00:00:00 00:00:00 [facility] Medical Oncology Oncology [facility] 2020-10-09 2020-10-09 Outpatient Homero anthony [id number] 00:00:00 00:00:00 Medical Medical [facility] 2020-09-12 2020-09-12 Homero Barlow 2 [id number] 00:00:00 00:00:00 [facility] Medical Oncology Oncology [facility] 2020-09-11 2020-09-11 Outpatient Homero anthony [id number] 00:00:00 00:00:00 [facility] Oncology Oncology [facility] 2020-08-16 2020-08-16 Outpatient Homero Sky rn [id number] 00:00:00 00:00:00 [facility] Medical Oncology Oncology [facility] 2020-08-15 2020-08-15 Outpatient Homero anthony [id number] 00:00:00 00:00:00 [facility] Oncology Oncology [facility] 2020-07-19 2020-07-19 Outpatient Homero Sky rn [id number] 00:00:00 00:00:00 [facility] Oncology Oncology [facility] 2020-06-21 2020-06-21 Outpatient Homero Sky rn [id number] 00:00:00 00:00:00 [facility] Medical Oncology [facility] 2020-05-24 2020-05-24 Outpatient Homero Skysharon rn [id number] 00:00:00 00:00:00 [facility] Oncology Oncology [facility] 2020-05-23 2020-05-23 Outpatient Homero Freedcheryle n [id number] 00:00:00 00:00:00 [facility] Oncology Oncology [facility] 2020-04-26 2020-04-26 Outpatient Homero Skye rn [id number] 00:00:00 00:00:00 [facility] Oncology Oncology [facility] 2020-04-25 2020-04-25 Outpatient Homero Freedcheryle n [id number] 00:00:00 00:00:00 [facility] Oncology Oncology [facility] 2020-04-05 2020-04-05 Outpatient Homero Sky Lourdese rn [id number] 00:00:00 00:00:00 [facility] Oncology Oncology [facility] 2020-04-02 2020-04-02 Outpatient Homero Freedcheryle n [id number] 00:00:00 00:00:00 [facility] Oncology Oncology [facility] 2020-03-30 2020-03-30 Outpatient Homero Freeder n [id number] 00:00:00 00:00:00 [facility] Oncology Oncology [facility] 2020-03-29 2020-03-29 Miss Asya Espinoza [facility] krunal [id number] 00:00:00 00:00:00 Miriam Davison [facility] Oncology Oncology [facility] 2020-02-09 2020-02-09 Outpatient Homero Freedcheryle n [id number] 00:00:00 00:00:00 [facility] Oncology Oncology [facility] 2020-01-26 2020-01-26 Outpatient Homero Skye rn [id number] 00:00:00 00:00:00 [facility] Medical Oncology On[facility] 2020-01-12 2020-01-12 Outpatient Homero Freeder n [id number] 00:00:00 00:00:00 [facility] Oncology [facility]cology [facility] 2019-12-15 2019-12-15 Outpatient Homero Freeder n [id number] 00:00:00 00:00:00 [facility] Medical Oncology Oncology [facility] [place] 2019-12-05 2019-12-05 Dom Zavala [id number] 00:00:00 00:00:00 Day, Surgical Surgical [id number] DO: [address], [place] [address], Ph. 2019-11-18 2019-11-18 Outpatient [facility] n [id number] 00:00:00 00:00:00 [facility] Oncology Oncology [facility] 2019-11-17 2019-11-17 Outpatient [facility] n [id number] 00:00:00 00:00:00 [facility] Medical Oncology Oncology [facility] 2019-11-16 2019-11-16 El Monetta Monetta [id number] 00:00:00 00:00:00 Charley, Surgical Surgical [id number] OTR/L, OTD, [facility] C[facility]: [address], [place] [address], Ph. 2019-11-16 2019-11-16 El Monetta Monetta [id number] 00:00:00 00:00:00 Charley, Surgical Surgical [id number] OTR/L, OTD, [facility]: [address], [place] [address], Ph. 2019-11-14 2019-11-14 El Mon[place] Monetta [id number] 00:00:00 00:00:00 Charley, Surgical Surgical [id number] OTR/L, OTD, [facility]: [address], [place] [address], Ph. 2019-11-14 2019-11-14 El Monetta Monetta [id number] 00:00:00 00:00:00 Charley, Surgical Surgical [id number] OTR/L, OTD, [facility]: [address], [place] [address], Ph. 2019-11-09 2019-11-09 El Monetta Monetta [id number] 00:00:00 00:00:00 Charley, Surgical Surgical [id number] OTR/L, OTD, [facility]: [address], [place] [address], Ph. 2019-11-09 2019-11-09 El Guilleneret [id number] 00:00:00 00:00:00 Charley, Surgical Surgical [id number] OTR/L, OTD, [facility]: [address], [place] [address], Ph. 2019-11-07 2019-11-07 El Guilleneret [id number] 00:00:00 00:00:00 Charley, Surgical Surgical [id number] OTR/L, OTD, [facility]: [address], [place] [address], Ph. 2019-11-07 2019-11-07 El Guilleneret [id number] 00:00:00 00:00:00 Charley, Surgical Surgical [id number] OTR/L, OTD, [facility]: [address], [place] [address], Ph. 2019-11-02 2019-11-02 El Guilleneret [id number] 00:00:00 00:00:00 Charley, Surgical Surgical [id number] OTR/L, OTD, [facility]: [address], [place] [address], Ph. 2019-10-26 2019-10-26 El Guilleneret [id number] 00:00:00 00:00:00 Charley, Surgical Surgical [id number] OTR/L, OTD, [facility]: [address], [place] [address], Ph. 2019-10-24 2019-10-24 Dom Paul Sara Guilleneret [id number] 00:00:00 00:00:00 Day, Surgical Surgical [id number] DO: [address], [place] [address], Ph. 2019-10-24 2019-10-24 Dom Zavala [id number] 00:00:00 00:00:00 Wertman, Surgical Surgical [id number] DO: [address] [facility], [address], [place] [address], Ph. 2019-10-20 2019-10-20 Outpatient Jayadevyn, Homero Pham rn [id number] 00:00:00 00:00:00 [facility] Oncology Oncology [facility] 2019-09-26 2019-09-26 Dom Zavala [id number] 00:00:00 00:00:00 Wertman, Surgical Surgical [id number] DO: [address] [facility] [employer] [facility], [address], [facility] [place] [address], Ph. 2019-09-26 2019-09-26 Dom Zavala [id number] 00:00:00 00:00:00 Wertman, Surgical Surgical [id number] DO: [address] [facility], [address], [facility] [place] [address], Ph. 2019-09-22 2019-09-22 Outpatient Asya, Homero Pham rn [id number] 00:00:00 00:00:00 [facility] Oncology Oncology [facility] 2019-09-08 2019-09-08 Outpatient Asya, Homero Pham rn [id number] 00:00:00 00:00:00 [facility] Medical Oncology Oncology [facility] 2019-09-08 2019-09-08 Dom Zavala [id number] 00:00:00 00:00:00 Wertman, Surgical Surgical [id number] DO: [address] [facility], [place] [address], Ph. 2019-09-05 2019-09-05 LEVY iMchael [facility] [id number] 10:30:00 10:30:00 ; Dalton Capellan MD 2019-08-25 2019-08-25 Appointment ZACHARY NguyễnJEFERSON [facility] [id number] 08:15:00 08:15:00 ; Chema Nguyễn MD 2019-08-11 2019-08-11 Asya Barlow [facility] [id number] 00:00:00 00:00:00 [facility] Oncology Oncology [facility] 2019-08-10 2019-08-10 Outpatient Homero Sky rn [id number] 00:00:00 00:00:00 [facility] Oncology Oncology [facility] 2019-07-14 2019-07-14 Outpatient Homero Lourdescheryle n [id number] 00:00:00 00:00:00 [facility] Oncology Oncology [facility] 2019-07-13 2019-07-13 Outpatient Homero Sky rn [id number] 00:00:00 00:00:00 [facility] Oncology Oncology [facility] 2019-06-15 2019-06-15 Outpatient Homero Sky rn [id number] 00:00:00 00:00:00 [facility] Oncology Oncology [facility] 2019-05-18 2019-05-18 Outpatient Homero Sky rn [id number] 00:00:00 00:00:00 [facility] Oncology Oncology [facility] 2019-04-20 2019-04-20 Outpatient Homero Valentin n [id number] 00:00:00 00:00:00 [facility] Oncology Oncology [facility] 2019-03-23 2019-03-23 Outpatient Homero Sky rn [id number] 00:00:00 00:00:00 [facility] Oncology Oncology [facility] 2019-02-23 2019-02-23 Alberto Skydevyn [facility] [id number] 00:00:00 00:00:00 Dr. Otto [facility] Oncology Oncology [facility] 2019-01-26 2019-01-26 Outpatient Homero Sky rn [id number] 00:00:00 00:00:00 [facility] Oncology Oncology [facility] 2018-12-29 2018-12-29 Outpatient Homero Sky rn [id number] 00:00:00 00:00:00 [facility] Oncology Oncology [facility] 2018-12-01 2018-12-01 Outpatient Homero Sky rn [id number] 00:00:00 00:00:00 [facility] Oncology Oncology [facility] 2018-11-03 2018-11-03 AlbertodevynAsya [facility] [id number] 00:00:00 00:00:00 Dr. Otto [facility] Oncology Oncology [facility] 2018-10-29 2018-10-29 Outpatient Homero Sky rn [id number] 00:00:00 00:00:00 [facility] Oncology Oncology [facility] 2018-10-26 2018-10-26 Outpatient Homero Sky rn [id number] 00:00:00 00:00:00 [facility] Oncology Oncology [facility] 2018-10-06 2018-10-06 Outpatient Homero Sky rn [id number] 00:00:00 00:00:00 [facility] Oncology Oncology [facility] 2018-10-01 2018-10-01 Outpatient Homero Sky rn [id number] 00:00:00 00:00:00 [facility] Oncology Oncology [facility] 2018-09-28 2018-09-28 Outpatient Homero Sky rn [id number] 00:00:00 00:00:00 [facility] Oncology Oncology [facility] 2018-09-08 2018-09-08 Outpatient Homero Valentin n [id number] 00:00:00 00:00:00 [facility] Oncology Oncology [facility] 2018-09-03 2018-09-03 Outpatient Homero Sky rn [id number] 00:00:00 00:00:00 [facility] Oncology Oncology [facility] 2018-08-31 2018-08-31 Outpatient Homero Sky rn [id number] 00:00:00 00:00:00 [facility] Oncology Oncology [facility] 2018-08-11 2018-08-11 Outpatient Homero Sky rn [id number] 00:00:00 00:00:00 [facility] Oncology Oncology [facility] 2018-08-06 2018-08-06 Outpatient Homero Syk rn [id number] 00:00:00 00:00:00 [facility] Oncology Oncology [facility] 2018-08-03 2018-08-03 Outpatient JaLourdes jamescheryle Pham rn [id number] 00:00:00 00:00:00 [facility] Oncology Oncology [facility] 2018-07-14 2018-07-14 Outpatient JaHomero james Ankit rn [id number] 00:00:00 00:00:00 [facility] Oncology Oncology [facility] 2018-07-09 2018-07-09 Outpatient Jayadevyn Lourdescheryle Freede rn [id number] 00:00:00 00:00:00 [facility] Oncology Oncology [facility] 2018-07-06 2018-07-06 Outpatient JayadevynHomero rn [id number] 00:00:00 00:00:00 [facility] Oncology Oncology [facility] 2018-06-28 2018-06-28 Outpatient Giorgierika Lourdescheryle Pham rn [id number] 00:00:00 00:00:00 [facility] Oncology Oncology [facility] 2018-06-18 2018-06-18 Outpatient Jaerika Lourdescheryle Pham rn [id number] 00:00:00 00:00:00 [facility] Oncology Oncology [facility] 2018-06-11 2018-06-11 Outpatient GiorgierikaHomero rn [id number] 00:00:00 00:00:00 [facility] Oncology Oncology [facility] 2018-06-08 2018-06-08 Outpatient Asya Lourdescheryle Pham rn [id number] 00:00:00 00:00:00 [facility] Oncology Oncology [facility] 2018-06-04 2018-06-04 Outpatient Jaerika Lourdescheryle Pham rn [id number] 00:00:00 00:00:00 [facility] Oncology Oncology [facility] 2018-05-28 2018-05-28 Outpatient JamelissadevynHomeroe rn [id number] 00:00:00 00:00:00 [facility] Oncology Oncology [facility] 2018-05-17 2018-05-17 Outpatient Lourdescheryle Freedcheryle n [id number] 00:00:00 00:00:00 [facility] Oncology Oncology [facility] 2018-05-12 2018-05-12 Outpatient Homero Skye rn [id number] 00:00:00 00:00:00 [facility] Oncology Oncology [facility] 2018-05-11 2018-05-11 GiorgiAsya james [facility] [id number] 00:00:00 00:00:00 Dr. Otto [facility] Oncology Oncology [facility] 2018-04-19 2018-04-19 Outpatient Homero Lourdescheryle n [id number] 00:00:00 00:00:00 [facility] Oncology Oncology [facility] 2018-04-15 2018-04-15 Outpatient AlbertodevynHomero rn [id number] 00:00:00 00:00:00 [facility] Oncology Oncology [facility] 2018-03-25 2018-03-25 Outpatient Homero Lourdescheryle n [id number] 00:00:00 00:00:00 [facility] Oncology Oncology [facility] 2018-03-22 2018-03-22 Outpatient Albertodevyn Lourdescheryle Pham rn [id number] 00:00:00 00:00:00 [facility] Oncology Oncology [facility] 2018-03-18 2018-03-18 Outpatient AlbertodevynHomero rn [id number] 00:00:00 00:00:00 [facility] Oncology Oncology [facility] 2018-02-22 2018-02-22 Outpatient AlbertodevynHomeroe rn [id number] 00:00:00 00:00:00 [facility] Oncology Oncology [facility] 2018-02-18 2018-02-18 Outpatient Albertodevyn Lourdescheryle Freede rn [id number] 00:00:00 00:00:00 [facility] Oncology Oncology [facility] 2018-01-25 2018-01-25 Outpatient AlbertodevynHomero rn [id number] 00:00:00 00:00:00 [facility] Oncology Oncology [facility] 2018-01-21 2018-01-21 Outpatient Homero Lourdescheryle n [id number] 00:00:00 00:00:00 [facility] Oncology Oncology [facility] 2017-12-28 2017-12-28 Outpatient AlbertodevynHomeroe rn [id number] 00:00:00 00:00:00 [facility] Oncology Oncology [facility] 2017-12-24 2017-12-24 Outpatient Homero Skye rn [id number] 00:00:00 00:00:00 [facility] Oncology Oncology [facility] 2017-11-30 2017-11-30 Outpatient Homero Skye rn [id number] 00:00:00 00:00:00 [facility] Oncology Oncology [facility] 2017-11-26 2017-11-26 Outpatient Homero Sky Lourdese rn [id number] 00:00:00 00:00:00 [facility] Oncology Oncology [facility] 2017-10-29 2017-10-29 Outpatient Asya Homero Lourdese rn [id number] 00:00:00 00:00:00 [facility] Oncology Oncology [facility] 2017-10-28 2017-10-28 Outpatient Homero Sky Lourdese rn [id number] 00:00:00 00:00:00 [facility] Oncology Oncology [facility] 2017-10-21 2017-10-21 AlexisMiss Asya jacob [facility] krunal [id number] 00:00:00 00:00:00 Miriam Davison [facility] Oncology Oncology [facility] 2017-10-01 2017-10-01 Outpatient Asya Homero Lourdese rn [id number] 00:00:00 00:00:00 [facility] Oncology Oncology [facility] 2017-09-30 2017-09-30 Outpatient Giorgierika Homero Lourdese rn [id number] 00:00:00 00:00:00 [facility] Oncology Oncology [facility] 2017-09-23 2017-09-23 Outpatient Homero Sky Lourdese rn [id number] 00:00:00 00:00:00 [facility] Oncology Oncology [facility] 2017-09-02 2017-09-02 Outpatient Giorgierika Homero Lourdese rn [id number] 00:00:00 00:00:00 [facility] Oncology Oncology [facility] 2017-08-26 2017-08-26 Outpatient Giorgierika Homero Lourdese rn [id number] 00:00:00 00:00:00 [facility] Oncology Oncology [facility] 2017-08-05 2017-08-05 Outpatient Albertodevyn Lourdescheryle Freede rn [id number] 00:00:00 00:00:00 [facility] Oncology Oncology [facility] 2017-07-08 2017-07-08 Outpatient AlbertodevynHomeroe rn [id number] 00:00:00 00:00:00 [facility] Oncology Oncology [facility] 2017-06-10 2017-06-10 Outpatient Homero Skysharon rn [id number] 00:00:00 00:00:00 [facility] Oncology Oncology [facility] 2017-05-13 2017-05-13 Outpatient Homero Skysharon rn [id number] 00:00:00 00:00:00 [facility] Oncology Oncology [facility] 2017-04-15 2017-04-15 AlbertodevynGiorgierika [facility] [id number] 00:00:00 00:00:00 Dr. Fam Otto [facility] Oncology Oncology [facility] 2017-03-18 2017-03-18 Outpatient Giorgierika Lourdescheryle Pham rn [id number] 00:00:00 00:00:00 [facility] Oncology Oncology [facility] 2017-02-18 2017-02-18 Outpatient Homero Sky Ankit rn [id number] 00:00:00 00:00:00 [facility] Oncology Oncology [facility] 2017-01-21 2017-01-21 Outpatient Homero Skysharon rn [id number] 00:00:00 00:00:00 [facility] Oncology Oncology [facility] 2016-12-24 2016-12-24 Outpatient Asya Homero Ankit rn [id number] 00:00:00 00:00:00 [facility] Oncology Oncology [facility] 2016-11-26 2016-11-26 Outpatient Homero Skysharon rn [id number] 00:00:00 00:00:00 [facility] Oncology Oncology [facility] 2016-11-05 2016-11-05 Outpatient Lourdescheryle Valentin n [id number] 00:00:00 00:00:00 [facility] Oncology Oncology [facility] 2016-10-29 2016-10-29 AlbertodevynGiorgierika [facility] [id number] 00:00:00 00:00:00 Dr. Fam Otto [facility] Oncology Oncology [facility] 2016-10-27 2016-10-27 Outpatient Homero Lourdescheryle n [id number] 00:00:00 00:00:00 [facility] Oncology Oncology [facility] 2016-10-22 2016-10-22 Outpatient AlbertodevynHomeroe rn [id number] 00:00:00 00:00:00 [facility] Oncology Oncology [facility] 2016-10-01 2016-10-01 Outpatient Homero Sky rn [id number] 00:00:00 00:00:00 [facility] Oncology Oncology [facility] 2016-09-03 2016-09-03 Outpatient AlbertodevynHomero rn [id number] 00:00:00 00:00:00 [facility] Oncology Oncology [facility] 2016-08-06 2016-08-06 Outpatient Homero Sky rn [id number] 00:00:00 00:00:00 [facility] Oncology Oncology [facility] 2016-07-09 2016-07-09 Outpatient Homero Sky rn [id number] 00:00:00 00:00:00 [facility] Oncology Oncology [facility] 2016-07-08 2016-07-08 Outpatient Homero Valentin n [id number] 00:00:00 00:00:00 [facility] Oncology Oncology [facility] 2016-07-04 2016-07-04 Outpatient Homero Valentin n [id number] 00:00:00 00:00:00 [facility] [facility] On[facility] 2016-07-02 2016-07-02 Outpatient AlbertodevynHomero rn [id number] 00:00:00 00:00:00 [facility] Oncology Oncology [facility] 2016-07-01 2016-07-01 Asya Sky [facility] [id number] 00:00:00 00:00:00 Dr. Otto [facility] Oncology Oncology [facility] 2016-06-11 2016-06-11 Outpatient Homero Sky rn [id number] 00:00:00 00:00:00 [facility] Oncology Oncology [facility] 2016-06-04 2016-06-04 Outpatient Homero Skye rn [id number] 00:00:00 00:00:00 [facility] Oncology Oncology [facility] 2016-06-03 2016-06-03 Outpatient Homero Skye rn [id number] 00:00:00 00:00:00 [facility] Oncology Oncology [facility] 2016-06-02 2016-06-02 Outpatient Homero Skye rn [id number] 00:00:00 00:00:00 [facility] On[facility] [place] 2016-05-30 2016-05-30 Outpatient Giorgierika Lourdescheryle Pham rn [id number] 00:00:00 00:00:00 [facility] Oncology Oncology [facility] 2016-05-29 2016-05-29 Outpatient Giorgierika Lourdescheryle Pham rn [id number] 00:00:00 00:00:00 [facility] Oncology Oncology [facility] 2016-05-28 2016-05-28 Outpatient AlbertodevynHomero rn [id number] 00:00:00 00:00:00 [facility] Oncology Oncology [facility] 2016-05-27 2016-05-27 Outpatient AlbertodevynHomero rn [id number] 00:00:00 00:00:00 [facility] Oncology Oncology [facility] 2016-05-26 2016-05-26 Outpatient Giorgierika Lourdescheryle Pham rn [id number] 00:00:00 00:00:00 [facility] Oncology Oncology [facility] 2016-05-23 2016-05-23 Outpatient Albertodevyn Lourdescheryle Pham rn [id number] 00:00:00 00:00:00 [facility] Oncology Oncology [facility] 2016-05-22 2016-05-22 Outpatient Albertodevyn Lourdescheryle Pham rn [id number] 00:00:00 00:00:00 [facility] Oncology Oncology [facility] 2016-05-21 2016-05-21 Outpatient Giorgierika Lourdescheryle Pham rn [id number] 00:00:00 00:00:00 [facility] Oncology Oncology [facility] 2016-05-20 2016-05-20 Outpatient Homero Valentin n [id number] 00:00:00 00:00:00 [facility] Oncology Oncology [facility] 2016-05-16 2016-05-16 Outpatient Homero Valentin n [id number] 00:00:00 00:00:00 [facility] Oncology Oncology [facility] 2016-05-14 2016-05-14 Outpatient Homero Sky rn [id number] 00:00:00 00:00:00 [facility] Oncology Oncology [facility] 2016-05-12 2016-05-12 Asya Sky [facility] [id number] 00:00:00 00:00:00 [facility] [place] 2016-05-05 2016-05-05 Outpatient Homero Freeder n [id number] 00:00:00 00:00:00 [facility] Oncology Oncology [facility] [place] 2016-04-29 2016-04-29 Outpatient Lourdeser Lourdeser n [id number] 00:00:00 00:00:00 [facility] Oncology Oncology [facility] [place] 2016-04-25 2016-04-25 Outpatient Homero Freeder n [id number] 00:00:00 00:00:00 [facility] Oncology Oncology [facility] [place] 2014-02-08 2014-02-08 Outpatient Homero Freeder n [id number] 00:00:00 00:00:00 [facility] Oncology [facility]cology [facility] [place] 2013-11-10 2013-11-10 Asya Sky [facility] [id number] 00:00:00 00:00:00 Dr. Fam anthony [facility] Oncology Oncology [facility] [place] 2013-10-13 2013-10-13 Outpatient Homero Valentin n [id number] 00:00:00 00:00:00 [facility] Oncology Oncology [facility] [place] 2013-09-12 2013-09-12 Outpatient Homero Sky rn [id number] 00:00:00 00:00:00 [facility] Oncology Oncology [facility] [place] 2013-08-10 2013-08-10 Asya Sky [facility] [id number] 00:00:00 00:00:00 Dr. Fam Otto [facility] Oncology Oncology [facility] [place] 2013-08-05 2013-08-05 Outpatient Homero Sky rn [id number] 00:00:00 00:00:00 [facility] Oncology Oncology [facility] [place] 2013-05-06 2013-05-06 ? Homero Sky [id number] 00:00:00 00:00:00 [facility] Oncology Oncology [facility] [place] 2013-04-28 2013-04-28 Outpatient Homero Sky rn [id number] 00:00:00 00:00:00 [facility] Oncology Oncology [facility] [place] 2013-04-15 2013-04-15 Outpatient Lourdescheryle Freedcheryle n [id number] 00:00:00 00:00:00 [facility] Oncology Oncology [facility] [place] 2013-04-08 2013-04-08 Outpatient Homero Sky rn [id number] 00:00:00 00:00:00 [facility] Oncology Oncology [facility] 2013-03-31 2013-03-31 Outpatient Homero Skysharon rn [id number] 00:00:00 00:00:00 [facility] Oncology [facility] 2013-03-22 2013-03-22 Asya Sky [facility] [id number] 00:00:00 00:00:00 Dr. Otto [facility] Family History Family Member Diagnosis Comments Start Date Stop Date Unspecified Family history of cardiac disorder Family History Unspecified Family history of malignant Family History neoplasm Unspecified Family history of diabetes mellitus Family History Immunizations Ordered Immunization Filled Immunization Date Status Commen ts Refusal Reason Name Name influenza, 2019-07-19 Completed injectable, 00:00:00 quadrivalent Social History Smoking Status Start Date Stop Date Yes - but quit (former) 2020-09-12 00:00:00 2020-09-12 00:00 :00 Social History Observation Description Sex Female Vital Signs Vital Name Observation Time Observation Value Comments BP Diastolic 2019-12-05 00:00:00 78 mm[Hg] Height 2019-12-05 00:00:00 70 [in_i] BMI (Body Mass Index) 2019-12-05 00:00:00 41.2 kg/m2 BP Systolic 2019-12-05 00:00:00 132 mm[Hg] Body Weight 2019-12-05 00:00:00 287 [lb_av] Height 2019-10-24 00:00:00 70 [in_i] BMI (Body Mass Index) 2019-10-24 00:00:00 41.2 kg/m2 Body Weight 2019-10-24 00:00:00 287 [lb_av] BP Diastolic 2019-09-26 00:00:00 71 mm[Hg] Height 2019-09-26 00:00:00 70 [in_i] BMI (Body Mass Index) 2019-09-26 00:00:00 41.2 kg/m2 BP Systolic 2019-09-26 00:00:00 121 mm[Hg] Body Weight 2019-09-26 00:00:00 287 [lb_av] BP Diastolic 2019-09-08 00:00:00 81 mm[Hg] Height 2019-09-08 00:00:00 70 [in_i] BMI (Body Mass Index) 2019-09-08 00:00:00 41.2 kg/m2 BP Systolic 2019-09-08 00:00:00 125 mm[Hg] Body Weight 2019-09-08 00:00:00 287 [lb_av] BMI 2020-10-10 13:49:52 39.6900 BP krishna 2020-10-10 13:49:52 80.0000 mm[Hg] Bdy height 2020-10-10 13:49:52 70.0000 [in_i] SaO2% BldA PulseOx 2020-10-10 13:49:52 96.0000 % Heart rate 2020-10-10 13:49:52 65.0000 /min Resp rate 2020-10-10 13:49:52 18.0000 /min BP sys 2020-10-10 13:49:52 143.0000 mm[Hg] Body temperature 2020-10-10 13:49:52 97.5000 [degF] Weight 2020-10-10 13:49:52 276.6000 [lb_av] Bdy height 2020-10-10 13:44:47 70.0000 [in_i] Body temperature 2020-10-10 13:44:47 97.5000 [degF] BMI 2020-09-12 14:24:46 39.5200 BP krishna 2020-09-12 14:24:46 74.0000 mm[Hg] Bdy height 2020-09-12 14:24:46 70.0000 [in_i] SaO2% BldA PulseOx 2020-09-12 14:24:46 96.0000 % Heart rate 2020-09-12 14:24:46 78.0000 /min Resp rate 2020-09-12 14:24:46 16.0000 /min BP sys 2020-09-12 14:24:46 116.0000 mm[Hg] Body temperature 2020-09-12 14:24:46 97.9000 [degF] Weight 2020-09-12 14:24:46 275.4000 [lb_av] BMI 2020-08-16 13:10:00 39.8000 BP krishna 2020-08-16 13:10:00 77.0000 mm[Hg] Bdy height 2020-08-16 13:10:00 70.0000 [in_i] SaO2% BldA PulseOx 2020-08-16 13:10:00 96.0000 % Heart rate 2020-08-16 13:10:00 65.0000 /min Resp rate 2020-08-16 13:10:00 18.0000 /min BP sys 2020-08-16 13:10:00 124.0000 mm[Hg] Body temperature 2020-08-16 13:10:00 97.9000 [degF] Weight 2020-08-16 13:10:00 277.4000 [lb_av] BMI 2020-07-19 13:32:16 40.0300 BP krishna 2020-07-19 13:32:16 76.0000 mm[Hg] Bdy height 2020-07-19 13:32:16 70.0000 [in_i] SaO2% BldA PulseOx 2020-07-19 13:32:16 97.0000 % Heart rate 2020-07-19 13:32:16 63.0000 /min Resp rate 2020-07-19 13:32:16 16.0000 /min BP sys 2020-07-19 13:32:16 129.0000 mm[Hg] Body temperature 2020-07-19 13:32:16 98.2000 [degF] Weight 2020-07-19 13:32:16 279.0000 [lb_av] BP krishna 2020-06-21 13:02:04 80.0000 mm[Hg] Bdy height 2020-06-21 13:02:04 70.0000 [in_i] SaO2% BldA PulseOx 2020-06-21 13:02:04 96.0000 % Heart rate 2020-06-21 13:02:04 73.0000 /min Resp rate 2020-06-21 13:02:04 16.0000 /min BP sys 2020-06-21 13:02:04 140.0000 mm[Hg] Body temperature 2020-06-21 13:02:04 98.8000 [degF] BMI 2020-05-24 13:19:34 39.6900 BP krishna 2020-05-24 13:19:34 67.0000 mm[Hg] Bdy height 2020-05-24 13:19:34 70.0000 [in_i] SaO2% BldA PulseOx 2020-05-24 13:19:34 96.0000 % Heart rate 2020-05-24 13:19:34 63.0000 /min Resp rate 2020-05-24 13:19:34 18.0000 /min BP sys 2020-05-24 13:19:34 122.0000 mm[Hg] Body temperature 2020-05-24 13:19:34 97.2000 [degF] Weight 2020-05-24 13:19:34 276.6000 [lb_av] BMI 2020-04-26 13:56:38 40.0600 BP krishna 2020-04-26 13:56:38 81.0000 mm[Hg] Bdy height 2020-04-26 13:56:38 70.0000 [in_i] SaO2% BldA PulseOx 2020-04-26 13:56:38 97.0000 % Heart rate 2020-04-26 13:56:38 68.0000 /min Resp rate 2020-04-26 13:56:38 18.0000 /min BP sys 2020-04-26 13:56:38 130.0000 mm[Hg] Body temperature 2020-04-26 13:56:38 97.3000 [degF] Weight 2020-04-26 13:56:38 279.2000 [lb_av] Bdy height 2020-04-05 10:43:45 70.0000 [in_i] Body temperature 2020-04-05 10:43:45 97.0000 [degF] BMI 2020-03-29 13:59:23 41.1500 BP krishna 2020-03-29 13:59:23 66.0000 mm[Hg] Bdy height 2020-03-29 13:59:23 70.0000 [in_i] Heart rate 2020-03-29 13:59:23 74.0000 /min Resp rate 2020-03-29 13:59:23 16.0000 /min BP sys 2020-03-29 13:59:23 112.0000 mm[Hg] Body temperature 2020-03-29 13:59:23 98.3000 [degF] Weight 2020-03-29 13:59:23 286.8000 [lb_av] BMI 2019-12-15 14:37:15 40.8600 BP krishna 2019-12-15 14:37:15 58.0000 mm[Hg] Bdy height 2019-12-15 14:37:15 70.0000 [in_i] SaO2% BldA PulseOx 2019-12-15 14:37:15 96.0000 % Heart rate 2019-12-15 14:37:15 67.0000 /min Resp rate 2019-12-15 14:37:15 18.0000 /min BP sys 2019-12-15 14:37:15 123.0000 mm[Hg] Body temperature 2019-12-15 14:37:15 98.4000 [degF] Weight 2019-12-15 14:37:15 284.8000 [lb_av] BMI 2019-11-18 11:58:54 40.7200 BP krishna 2019-11-18 11:58:54 66.0000 mm[Hg] Bdy height 2019-11-18 11:58:54 70.0000 [in_i] SaO2% BldA PulseOx 2019-11-18 11:58:54 97.0000 % Heart rate 2019-11-18 11:58:54 65.0000 /min Resp rate 2019-11-18 11:58:54 16.0000 /min BP sys 2019-11-18 11:58:54 112.0000 mm[Hg] Body temperature 2019-11-18 11:58:54 98.0000 [degF] Weight 2019-11-18 11:58:54 283.8000 [lb_av] BMI 2019-10-20 09:38:02 40.6900 BP krishna 2019-10-20 09:38:02 46.0000 mm[Hg] Bdy height 2019-10-20 09:38:02 70.0000 [in_i] SaO2% BldA PulseOx 2019-10-20 09:38:02 97.0000 % Heart rate 2019-10-20 09:38:02 71.0000 /min Resp rate 2019-10-20 09:38:02 16.0000 /min BP sys 2019-10-20 09:38:02 105.0000 mm[Hg] Body temperature 2019-10-20 09:38:02 97.3000 [degF] Weight 2019-10-20 09:38:02 283.6000 [lb_av] BMI 2019-09-22 09:43:11 40.0000 BP krishna 2019-09-22 09:43:11 69.0000 mm[Hg] Bdy height 2019-09-22 09:43:11 70.0000 [in_i] SaO2% BldA PulseOx 2019-09-22 09:43:11 96.0000 % Heart rate 2019-09-22 09:43:11 71.0000 /min Resp rate 2019-09-22 09:43:11 18.0000 /min BP sys 2019-09-22 09:43:11 116.0000 mm[Hg] Body temperature 2019-09-22 09:43:11 98.4000 [degF] Weight 2019-09-22 09:43:11 278.8000 [lb_av] BMI 2019-08-11 13:32:16 40.4600 BP krishna 2019-08-11 13:32:16 82.0000 mm[Hg] Bdy height 2019-08-11 13:32:16 70.0000 [in_i] SaO2% BldA PulseOx 2019-08-11 13:32:16 99.0000 % Heart rate 2019-08-11 13:32:16 70.0000 /min Resp rate 2019-08-11 13:32:16 18.0000 /min BP sys 2019-08-11 13:32:16 150.0000 mm[Hg] Body temperature 2019-08-11 13:32:16 96.3000 [degF] Weight 2019-08-11 13:32:16 282.0000 [lb_av] BMI 2019-07-14 10:03:35 39.9800 BP krishna 2019-07-14 10:03:35 72.0000 mm[Hg] Bdy height 2019-07-14 10:03:35 70.0000 [in_i] SaO2% BldA PulseOx 2019-07-14 10:03:35 97.0000 % Heart rate 2019-07-14 10:03:35 70.0000 /min Resp rate 2019-07-14 10:03:35 16.0000 /min BP sys 2019-07-14 10:03:35 114.0000 mm[Hg] Body temperature 2019-07-14 10:03:35 97.6000 [degF] Weight 2019-07-14 10:03:35 278.6000 [lb_av] BMI 2019-06-15 10:22:14 39.3200 BP krishna 2019-06-15 10:22:14 69.0000 mm[Hg] Bdy height 2019-06-15 10:22:14 70.0000 [in_i] SaO2% BldA PulseOx 2019-06-15 10:22:14 97.0000 % Heart rate 2019-06-15 10:22:14 63.0000 /min Resp rate 2019-06-15 10:22:14 16.0000 /min BP sys 2019-06-15 10:22:14 119.0000 mm[Hg] Body temperature 2019-06-15 10:22:14 98.0000 [degF] Weight 2019-06-15 10:22:14 274.0000 [lb_av] BMI 2019-05-18 10:30:36 39.4600 BP krishna 2019-05-18 10:30:36 70.0000 mm[Hg] Bdy height 2019-05-18 10:30:36 70.0000 [in_i] SaO2% BldA PulseOx 2019-05-18 10:30:36 98.0000 % Heart rate 2019-05-18 10:30:36 69.0000 /min Resp rate 2019-05-18 10:30:36 18.0000 /min BP sys 2019-05-18 10:30:36 132.0000 mm[Hg] Body temperature 2019-05-18 10:30:36 97.5000 [degF] Weight 2019-05-18 10:30:36 275.0000 [lb_av] BMI 2019-04-20 10:04:36 40.0000 BP krishna 2019-04-20 10:04:36 63.0000 mm[Hg] Bdy height 2019-04-20 10:04:36 70.0000 [in_i] SaO2% BldA PulseOx 2019-04-20 10:04:36 98.0000 % Heart rate 2019-04-20 10:04:36 84.0000 /min Resp rate 2019-04-20 10:04:36 16.0000 /min BP sys 2019-04-20 10:04:36 107.0000 mm[Hg] Body temperature 2019-04-20 10:04:36 97.5000 [degF] Weight 2019-04-20 10:04:36 278.8000 [lb_av] BMI 2019-03-23 10:33:00 38.9700 BP krishna 2019-03-23 10:33:00 64.0000 mm[Hg] Bdy height 2019-03-23 10:33:00 70.0000 [in_i] SaO2% BldA PulseOx 2019-03-23 10:33:00 98.0000 % Heart rate 2019-03-23 10:33:00 69.0000 /min Resp rate 2019-03-23 10:33:00 16.0000 /min BP sys 2019-03-23 10:33:00 107.0000 mm[Hg] Body temperature 2019-03-23 10:33:00 97.1000 [degF] Weight 2019-03-23 10:33:00 271.6000 [lb_av] BMI 2019-02-23 10:35:50 38.5700 BP krishna 2019-02-23 10:35:50 83.0000 mm[Hg] Bdy height 2019-02-23 10:35:50 70.0000 [in_i] Heart rate 2019-02-23 10:35:50 88.0000 /min Resp rate 2019-02-23 10:35:50 18.0000 /min BP sys 2019-02-23 10:35:50 132.0000 mm[Hg] Body temperature 2019-02-23 10:35:50 97.5000 [degF] Weight 2019-02-23 10:35:50 268.8000 [lb_av] BMI 2019-01-26 09:53:01 38.1100 BP krishna 2019-01-26 09:53:01 59.0000 mm[Hg] Bdy height 2019-01-26 09:53:01 70.0000 [in_i] SaO2% BldA PulseOx 2019-01-26 09:53:01 96.0000 % Heart rate 2019-01-26 09:53:01 92.0000 /min Resp rate 2019-01-26 09:53:01 16.0000 /min BP sys 2019-01-26 09:53:01 107.0000 mm[Hg] Body temperature 2019-01-26 09:53:01 97.2000 [degF] Weight 2019-01-26 09:53:01 265.6000 [lb_av] BMI 2018-12-29 09:29:15 37.7100 BP krishna 2018-12-29 09:29:15 62.0000 mm[Hg] Bdy height 2018-12-29 09:29:15 70.0000 [in_i] SaO2% BldA PulseOx 2018-12-29 09:29:15 96.0000 % Heart rate 2018-12-29 09:29:15 67.0000 /min Resp rate 2018-12-29 09:29:15 16.0000 /min BP sys 2018-12-29 09:29:15 117.0000 mm[Hg] Body temperature 2018-12-29 09:29:15 97.8000 [degF] Weight 2018-12-29 09:29:15 262.8000 [lb_av] BMI 2018-11-03 10:47:34 36.7900 BP krishna 2018-11-03 10:47:34 67.0000 mm[Hg] Bdy height 2018-11-03 10:47:34 70.0000 [in_i] Heart rate 2018-11-03 10:47:34 66.0000 /min Resp rate 2018-11-03 10:47:34 22.0000 /min BP sys 2018-11-03 10:47:34 130.0000 mm[Hg] Body temperature 2018-11-03 10:47:34 96.8000 [degF] Weight 2018-11-03 10:47:34 256.4000 [lb_av] BMI 2018-10-01 08:56:04 37.3100 BP krishna 2018-10-01 08:56:04 71.0000 mm[Hg] Bdy height 2018-10-01 08:56:04 70.0000 [in_i] SaO2% BldA PulseOx 2018-10-01 08:56:04 96.0000 % Heart rate 2018-10-01 08:56:04 71.0000 /min Resp rate 2018-10-01 08:56:04 18.0000 /min BP sys 2018-10-01 08:56:04 111.0000 mm[Hg] Body temperature 2018-10-01 08:56:04 97.2000 [degF] Weight 2018-10-01 08:56:04 260.0000 [lb_av] BMI 2018-08-11 09:34:48 37.5900 BP krishna 2018-08-11 09:34:48 62.0000 mm[Hg] Bdy height 2018-08-11 09:34:48 70.0000 [in_i] SaO2% BldA PulseOx 2018-08-11 09:34:48 95.0000 % Heart rate 2018-08-11 09:34:48 63.0000 /min Resp rate 2018-08-11 09:34:48 16.0000 /min BP sys 2018-08-11 09:34:48 102.0000 mm[Hg] Body temperature 2018-08-11 09:34:48 96.1000 [degF] Weight 2018-08-11 09:34:48 262.0000 [lb_av] BMI 2018-07-14 11:02:50 37.5900 BP krishna 2018-07-14 11:02:50 59.0000 mm[Hg] Bdy height 2018-07-14 11:02:50 70.0000 [in_i] SaO2% BldA PulseOx 2018-07-14 11:02:50 98.0000 % Heart rate 2018-07-14 11:02:50 75.0000 /min Resp rate 2018-07-14 11:02:50 16.0000 /min BP sys 2018-07-14 11:02:50 116.0000 mm[Hg] Body temperature 2018-07-14 11:02:50 97.3000 [degF] Weight 2018-07-14 11:02:50 262.0000 [lb_av] BMI 2018-06-18 08:49:19 38.0200 BP krishna 2018-06-18 08:49:19 60.0000 mm[Hg] Bdy height 2018-06-18 08:49:19 70.0000 [in_i] Heart rate 2018-06-18 08:49:19 69.0000 /min Resp rate 2018-06-18 08:49:19 16.0000 /min BP sys 2018-06-18 08:49:19 113.0000 mm[Hg] Body temperature 2018-06-18 08:49:19 99.0000 [degF] Weight 2018-06-18 08:49:19 265.0000 [lb_av] BMI 2018-06-11 08:39:52 37.6800 BP krishna 2018-06-11 08:39:52 70.0000 mm[Hg] Bdy height 2018-06-11 08:39:52 70.0000 [in_i] Heart rate 2018-06-11 08:39:52 71.0000 /min Resp rate 2018-06-11 08:39:52 18.0000 /min BP sys 2018-06-11 08:39:52 106.0000 mm[Hg] Body temperature 2018-06-11 08:39:52 97.3000 [degF] Weight 2018-06-11 08:39:52 262.6000 [lb_av] BMI 2018-06-04 08:37:30 37.3900 BP krishna 2018-06-04 08:37:30 66.0000 mm[Hg] Bdy height 2018-06-04 08:37:30 70.0000 [in_i] Heart rate 2018-06-04 08:37:30 71.0000 /min Resp rate 2018-06-04 08:37:30 20.0000 /min BP sys 2018-06-04 08:37:30 112.0000 mm[Hg] Body temperature 2018-06-04 08:37:30 98.2000 [degF] Weight 2018-06-04 08:37:30 260.6000 [lb_av] Body temperature 2018-05-28 09:09:43 98.5000 [degF] Weight 2018-05-28 09:09:43 261.4000 [lb_av] BMI 2018-05-28 09:09:43 37.5100 BP krishna 2018-05-28 09:09:43 61.0000 mm[Hg] Bdy height 2018-05-28 09:09:43 70.0000 [in_i] Heart rate 2018-05-28 09:09:43 77.0000 /min Resp rate 2018-05-28 09:09:43 18.0000 /min BP sys 2018-05-28 09:09:43 104.0000 mm[Hg] BMI 2018-05-11 15:06:32 37.2800 BP krishna 2018-05-11 15:06:32 79.0000 mm[Hg] Bdy height 2018-05-11 15:06:32 70.0000 [in_i] Heart rate 2018-05-11 15:06:32 57.0000 /min Resp rate 2018-05-11 15:06:32 16.0000 /min BP sys 2018-05-11 15:06:32 137.0000 mm[Hg] Body temperature 2018-05-11 15:06:32 97.4000 [degF] Weight 2018-05-11 15:06:32 259.8000 [lb_av] BMI 2018-03-25 08:53:30 37.3400 BP krishna 2018-03-25 08:53:30 60.0000 mm[Hg] Bdy height 2018-03-25 08:53:30 70.0000 [in_i] Heart rate 2018-03-25 08:53:30 85.0000 /min Resp rate 2018-03-25 08:53:30 16.0000 /min BP sys 2018-03-25 08:53:30 115.0000 mm[Hg] Body temperature 2018-03-25 08:53:30 98.2000 [degF] Weight 2018-03-25 08:53:30 260.2000 [lb_av] BMI 2018-02-22 09:20:46 36.2700 BP krishna 2018-02-22 09:20:46 62.0000 mm[Hg] Bdy height 2018-02-22 09:20:46 70.0000 [in_i] Heart rate 2018-02-22 09:20:46 79.0000 /min Resp rate 2018-02-22 09:20:46 16.0000 /min BP sys 2018-02-22 09:20:46 121.0000 mm[Hg] Body temperature 2018-02-22 09:20:46 97.7000 [degF] Weight 2018-02-22 09:20:46 252.8000 [lb_av] BMI 2017-12-28 09:00:48 35.8700 BP krishna 2017-12-28 09:00:48 74.0000 mm[Hg] Bdy height 2017-12-28 09:00:48 70.0000 [in_i] Heart rate 2017-12-28 09:00:48 72.0000 /min Resp rate 2017-12-28 09:00:48 16.0000 /min BP sys 2017-12-28 09:00:48 123.0000 mm[Hg] Body temperature 2017-12-28 09:00:48 97.0000 [degF] Weight 2017-12-28 09:00:48 250.0000 [lb_av] BMI 2017-11-30 08:46:54 35.7000 BP krishna 2017-11-30 08:46:54 71.0000 mm[Hg] Bdy height 2017-11-30 08:46:54 70.0000 [in_i] Heart rate 2017-11-30 08:46:54 68.0000 /min Resp rate 2017-11-30 08:46:54 16.0000 /min BP sys 2017-11-30 08:46:54 114.0000 mm[Hg] Body temperature 2017-11-30 08:46:54 97.0000 [degF] Weight 2017-11-30 08:46:54 248.8000 [lb_av] BMI 2017-10-29 09:08:27 35.0100 BP krishna 2017-10-29 09:08:27 64.0000 mm[Hg] Bdy height 2017-10-29 09:08:27 70.0000 [in_i] Heart rate 2017-10-29 09:08:27 74.0000 /min Resp rate 2017-10-29 09:08:27 16.0000 /min BP sys 2017-10-29 09:08:27 114.0000 mm[Hg] Body temperature 2017-10-29 09:08:27 97.9000 [degF] Weight 2017-10-29 09:08:27 244.0000 [lb_av] BMI 2017-10-21 11:15:43 35.0700 BP krishna 2017-10-21 11:15:43 76.0000 mm[Hg] Bdy height 2017-10-21 11:15:43 70.0000 [in_i] Heart rate 2017-10-21 11:15:43 68.0000 /min Resp rate 2017-10-21 11:15:43 20.0000 /min BP sys 2017-10-21 11:15:43 134.0000 mm[Hg] Body temperature 2017-10-21 11:15:43 97.9000 [degF] Weight 2017-10-21 11:15:43 244.4000 [lb_av] BMI 2017-10-01 12:00:29 34.9800 BP krishna 2017-10-01 12:00:29 71.0000 mm[Hg] Bdy height 2017-10-01 12:00:29 70.0000 [in_i] Heart rate 2017-10-01 12:00:29 53.0000 /min Resp rate 2017-10-01 12:00:29 14.0000 /min BP sys 2017-10-01 12:00:29 128.0000 mm[Hg] Body temperature 2017-10-01 12:00:29 97.9000 [degF] Weight 2017-10-01 12:00:29 243.8000 [lb_av] BMI 2017-08-26 10:49:41 34.9000 BP krishna 2017-08-26 10:49:41 59.0000 mm[Hg] Bdy height 2017-08-26 10:49:41 70.0000 [in_i] Heart rate 2017-08-26 10:49:41 65.0000 /min Resp rate 2017-08-26 10:49:41 16.0000 /min BP sys 2017-08-26 10:49:41 102.0000 mm[Hg] Body temperature 2017-08-26 10:49:41 98.3000 [degF] Weight 2017-08-26 10:49:41 243.2000 [lb_av] BMI 2017-07-08 13:52:17 34.7800 BP krishna 2017-07-08 13:52:17 70.0000 mm[Hg] Bdy height 2017-07-08 13:52:17 70.0000 [in_i] Heart rate 2017-07-08 13:52:17 65.0000 /min Resp rate 2017-07-08 13:52:17 16.0000 /min BP sys 2017-07-08 13:52:17 115.0000 mm[Hg] Body temperature 2017-07-08 13:52:17 98.7000 [degF] Weight 2017-07-08 13:52:17 242.4000 [lb_av] BMI 2017-04-15 10:35:09 34.1200 BP krishna 2017-04-15 10:35:09 74.0000 mm[Hg] Bdy height 2017-04-15 10:35:09 70.0000 [in_i] Heart rate 2017-04-15 10:35:09 54.0000 /min Resp rate 2017-04-15 10:35:09 16.0000 /min BP sys 2017-04-15 10:35:09 125.0000 mm[Hg] Body temperature 2017-04-15 10:35:09 97.6000 [degF] Weight 2017-04-15 10:35:09 237.8000 [lb_av] BMI 2017-03-18 10:53:07 34.2100 BP krishna 2017-03-18 10:53:07 73.0000 mm[Hg] Bdy height 2017-03-18 10:53:07 70.0000 [in_i] Heart rate 2017-03-18 10:53:07 64.0000 /min Resp rate 2017-03-18 10:53:07 16.0000 /min BP sys 2017-03-18 10:53:07 127.0000 mm[Hg] Body temperature 2017-03-18 10:53:07 98.2000 [degF] Weight 2017-03-18 10:53:07 238.4000 [lb_av] BMI 2017-02-18 09:57:47 33.8900 BP krishna 2017-02-18 09:57:47 63.0000 mm[Hg] Bdy height 2017-02-18 09:57:47 70.0000 [in_i] Heart rate 2017-02-18 09:57:47 69.0000 /min Resp rate 2017-02-18 09:57:47 18.0000 /min BP sys 2017-02-18 09:57:47 105.0000 mm[Hg] Body temperature 2017-02-18 09:57:47 98.0000 [degF] Weight 2017-02-18 09:57:47 236.2000 [lb_av] BMI 2016-11-26 10:18:05 30.7900 BP krishna 2016-11-26 10:18:05 72.0000 mm[Hg] Bdy height 2016-11-26 10:18:05 70.0000 [in_i] Heart rate 2016-11-26 10:18:05 69.0000 /min Resp rate 2016-11-26 10:18:05 18.0000 /min BP sys 2016-11-26 10:18:05 122.0000 mm[Hg] Body temperature 2016-11-26 10:18:05 96.9000 [degF] Weight 2016-11-26 10:18:05 214.6000 [lb_av] BMI 2016-10-29 10:15:38 34.9200 BP krishna 2016-10-29 10:15:38 56.0000 mm[Hg] Bdy height 2016-10-29 10:15:38 70.0000 [in_i] Heart rate 2016-10-29 10:15:38 61.0000 /min Resp rate 2016-10-29 10:15:38 16.0000 /min BP sys 2016-10-29 10:15:38 107.0000 mm[Hg] Body temperature 2016-10-29 10:15:38 96.1000 [degF] Weight 2016-10-29 10:15:38 243.4000 [lb_av] BMI 2016-10-01 10:15:36 34.4400 BP krishna 2016-10-01 10:15:36 76.0000 mm[Hg] Bdy height 2016-10-01 10:15:36 70.0000 [in_i] Heart rate 2016-10-01 10:15:36 65.0000 /min Resp rate 2016-10-01 10:15:36 20.0000 /min BP sys 2016-10-01 10:15:36 126.0000 mm[Hg] Body temperature 2016-10-01 10:15:36 96.1000 [degF] Weight 2016-10-01 10:15:36 240.0000 [lb_av] BMI 2016-08-06 08:40:13 34.8400 BP krishna 2016-08-06 08:40:13 50.0000 mm[Hg] Bdy height 2016-08-06 08:40:13 70.0000 [in_i] Heart rate 2016-08-06 08:40:13 61.0000 /min Resp rate 2016-08-06 08:40:13 20.0000 /min BP sys 2016-08-06 08:40:13 115.0000 mm[Hg] Body temperature 2016-08-06 08:40:13 96.2000 [degF] Weight 2016-08-06 08:40:13 242.8000 [lb_av] BMI 2016-07-01 11:04:27 35.3000 BP krishna 2016-07-01 11:04:27 72.0000 mm[Hg] Bdy height 2016-07-01 11:04:27 70.0000 [in_i] Heart rate 2016-07-01 11:04:27 57.0000 /min Resp rate 2016-07-01 11:04:27 20.0000 /min BP sys 2016-07-01 11:04:27 136.0000 mm[Hg] Body temperature 2016-07-01 11:04:27 96.6000 [degF] Weight 2016-07-01 11:04:27 246.0000 [lb_av] BMI 2016-06-11 10:14:17 34.8700 BP krishna 2016-06-11 10:14:17 65.0000 mm[Hg] Bdy height 2016-06-11 10:14:17 70.0000 [in_i] Heart rate 2016-06-11 10:14:17 55.0000 /min Resp rate 2016-06-11 10:14:17 20.0000 /min BP sys 2016-06-11 10:14:17 117.0000 mm[Hg] Body temperature 2016-06-11 10:14:17 97.3000 [degF] Weight 2016-06-11 10:14:17 243.0000 [lb_av] BMI 2016-06-04 10:05:56 35.2400 BP krishna 2016-06-04 10:05:56 74.0000 mm[Hg] Bdy height 2016-06-04 10:05:56 70.0000 [in_i] Heart rate 2016-06-04 10:05:56 63.0000 /min Resp rate 2016-06-04 10:05:56 20.0000 /min BP sys 2016-06-04 10:05:56 115.0000 mm[Hg] Body temperature 2016-06-04 10:05:56 97.0000 [degF] Weight 2016-06-04 10:05:56 245.6000 [lb_av] BMI 2016-05-28 09:50:57 35.1800 BP krishna 2016-05-28 09:50:57 74.0000 mm[Hg] Bdy height 2016-05-28 09:50:57 70.0000 [in_i] Heart rate 2016-05-28 09:50:57 74.0000 /min Resp rate 2016-05-28 09:50:57 22.0000 /min BP sys 2016-05-28 09:50:57 131.0000 mm[Hg] Body temperature 2016-05-28 09:50:57 98.3000 [degF] Weight 2016-05-28 09:50:57 245.2000 [lb_av] BMI 2016-05-21 09:30:04 35.2700 BP krishna 2016-05-21 09:30:04 74.0000 mm[Hg] Bdy height 2016-05-21 09:30:04 70.0000 [in_i] Heart rate 2016-05-21 09:30:04 73.0000 /min Resp rate 2016-05-21 09:30:04 20.0000 /min BP sys 2016-05-21 09:30:04 124.0000 mm[Hg] Body temperature 2016-05-21 09:30:04 98.1000 [degF] Weight 2016-05-21 09:30:04 245.8000 [lb_av] BMI 2016-05-12 15:55:52 35.3800 BP krishna 2016-05-12 15:55:52 66.0000 mm[Hg] Bdy height 2016-05-12 15:55:52 70.0000 [in_i] Heart rate 2016-05-12 15:55:52 60.0000 /min Resp rate 2016-05-12 15:55:52 18.0000 /min BP sys 2016-05-12 15:55:52 144.0000 mm[Hg] Body temperature 2016-05-12 15:55:52 97.1000 [degF] Weight 2016-05-12 15:55:52 246.6000 [lb_av] BMI 2013-11-10 09:49:41 41.5200 BP krishna 2013-11-10 09:49:41 76.0000 mm[Hg] Bdy height 2013-11-10 09:49:41 70.0000 [in_i] SaO2% BldA PulseOx 2013-11-10 09:49:41 97.0000 % Heart rate 2013-11-10 09:49:41 75.0000 /min Resp rate 2013-11-10 09:49:41 14.0000 /min BP sys 2013-11-10 09:49:41 130.0000 mm[Hg] Body temperature 2013-11-10 09:49:41 97.1000 [degF] Weight 2013-11-10 09:49:41 289.4000 [lb_av] BMI 2013-10-13 09:44:30 40.7500 BP krishna 2013-10-13 09:44:30 78.0000 mm[Hg] Bdy height 2013-10-13 09:44:30 70.0000 [in_i] Heart rate 2013-10-13 09:44:30 62.0000 /min Resp rate 2013-10-13 09:44:30 18.0000 /min BP sys 2013-10-13 09:44:30 147.0000 mm[Hg] Body temperature 2013-10-13 09:44:30 97.6000 [degF] Weight 2013-10-13 09:44:30 284.0000 [lb_av] BMI 2013-08-10 09:44:28 40.3500 BP krishna 2013-08-10 09:44:28 81.0000 mm[Hg] Bdy height 2013-08-10 09:44:28 70.0000 [in_i] Heart rate 2013-08-10 09:44:28 78.0000 /min Resp rate 2013-08-10 09:44:28 18.0000 /min BP sys 2013-08-10 09:44:28 159.0000 mm[Hg] Body temperature 2013-08-10 09:44:28 97.8000 [degF] Weight 2013-08-10 09:44:28 281.2000 [lb_av] BMI 2013-05-06 10:04:05 40.5500 BP krishna 2013-05-06 10:04:05 80.0000 mm[Hg] Bdy height 2013-05-06 10:04:05 70.0000 [in_i] Heart rate 2013-05-06 10:04:05 68.0000 /min Resp rate 2013-05-06 10:04:05 20.0000 /min BP sys 2013-05-06 10:04:05 139.0000 mm[Hg] Body temperature 2013-05-06 10:04:05 97.6000 [degF] Weight 2013-05-06 10:04:05 282.6000 [lb_av] BMI 2013-03-31 09:58:30 40.1500 BP krishna 2013-03-31 09:58:30 65.0000 mm[Hg] Bdy height 2013-03-31 09:58:30 70.0000 [in_i] Heart rate 2013-03-31 09:58:30 61.0000 /min Resp rate 2013-03-31 09:58:30 18.0000 /min BP sys 2013-03-31 09:58:30 135.0000 mm[Hg] Body temperature 2013-03-31 09:58:30 97.0000 [degF] Weight 2013-03-31 09:58:30 279.8000 [lb_av] BMI 2013-03-22 10:34:24 40.2900 BP krishna 2013-03-22 10:34:24 81.0000 mm[Hg] Bdy height 2013-03-22 10:34:24 70.0000 [in_i] Heart rate 2013-03-22 10:34:24 57.0000 /min Resp rate 2013-03-22 10:34:24 18.0000 /min BP sys 2013-03-22 10:34:24 134.0000 mm[Hg] Body temperature 2013-03-22 10:34:24 97.1000 [degF] Weight 2013-03-22 10:34:24 280.8000 [lb_av] Hospital Discharge Instructions 1. Closed Colles' fracture Discussion Note: None recorded. Patient educational handouts: No information available.NameDatesDetailsInstructions not documented
[2020-11-08] MEDS ORDERED: MIDAZOLAM 2 MG/2 ML INJ ONE (06:45)
[2020-11-08] MEDS ORDERED: FENTANYL CITRATE INJ/PF 100 MCG/2 ML AMPUL ONE (06:46)
[2020-11-08] MEDS: BESIFLOXACIN HCL 0.6% OPH SUSP 5 ML BOTTLE OD PRN ×4 (06:54→07:44)
[2020-11-08] MEDS: TROPICAMIDE 1% OPH SOLN 15 ML OD PRN ×3 (06:54→07:18)
[2020-11-08] MEDS: TETRACAINE HCL 0.5% OPH SOLN 4 ML OD PRN ×3 (06:54→07:29)
[2020-11-08] MEDS: CYCLOPENTOLATE 0.2%/PHENYLEPHRINE 1% OPH SOLN 2 ML OD PRN ×3 (06:54→07:18)
[2020-11-08] MEDS ORDERED: EPINEPHRINE INJ/PF 1 MG/1 ML AMPULE ONE (07:08)
[2020-11-08] MEDS ORDERED: LIDOCAINE 1%/PHENYLEPHRINE 1.5% 1 ML VIAL ONE (07:08)
[2020-11-08] MEDS ORDERED: CHONDR SU A NA/HYALUR INTRAOC KIT (SURGICARE) ONE (07:09)
[2020-11-08] MEDS: PREDNISOLONE ACETATE 1% OPH SUSP 5 ML OD PRN ×2 (07:40→07:44)
[2020-11-08] MEDS: DORZOLAMIDE HCL 2%/TIMOLOL MALEAT 0.5% OPH SOLN 10 ML OD PRN ×2 (07:41→07:44)
--- NOTE | 2020-11-09 11:39 | Operative Report ---
Operative Report-[facility] Operative Report: DATE OF SURGERY: 11/08/2020 PREOPERATIVE DIAGNOSIS: Cataract, right eye POSTOPERATIVE DIAGNOSIS: Cataract, right eye OPERATION: Cataract extraction with insertion of an IOL of the right eye. Intraocular Lens Model: [20.0 SN 60 WF lens] Patient underwent surgery for difficulty with night driving SURGEON: Devon Echols MD ANESTHESIA: Topical PROCEDURE: After obtaining appropriate consent, the patient's right eye was prepped and draped in a sterile fashion as well as the surgeon in the sterile manner and cataract surgery was started. First a paracentesis blade was used to make a side-port incision. Viscoelastic was used to inflate the anterior chamber. Next a 2.4 mm incision was made with a 2.4 mm blade, clear corneal temporarily. A continuous capsulorrhexis was made using a cystotome and Utrata forceps. Following this hydrodissection was carried out to make the pooja fully loose and mobile and it was rotated. Following this, a divide and conquer technique was used to phacoemulsify the pooja. The remaining cortex was removed with an irrigation/aspiration. Provisc was instilled into the capsular bag to inflate the bag. The intraocular lens was placed. The remaining viscoelastic material was removed with irrigation/aspiration. Following this, the incision was found to be watertight. Besivance and Cosopt was instilled into the eye and a protective shield was placed over the eye. The patient was reurned to the postoperative recovery in a stable condition.
== END 2020-11-08 08:16 | disposition home or self-care (01) ==
LOC: SC 06:25
PROVIDERS: ATTEND Internal Medicine
DX: H25.811 Combined forms of age-related cataract, right eye (principal); H35.363 Drusen (degenerative) of macula, bilateral; E11.36 Type 2 diabetes mellitus with diabetic cataract; H31.003 Unspecified chorioretinal scars, bilateral; H52.4 Presbyopia; Z79.84 Long term (current) use of oral hypoglycemic drugs; Z87.891 Personal history of nicotine dependence; E78.00 Pure hypercholesterolemia, unspecified; J45.909 Unspecified asthma, uncomplicated; F32.9 Major depressive disorder, single episode, unspecified; F41.9 Anxiety disorder, unspecified; D64.9 Anemia, unspecified
CPT/HCPCS: 66984; 82962; 00142; V2632; J2250; J3490 ×2; A9270; J0171; J3010; 142